=== PATIENT | male | born 1960 | race Caucasian/White ===

== ENCOUNTER → 2024-04-20 09:36 | Outpatient (REF) | payer BC, SELFPAY | LOC: MRI 09:36 | PROVIDERS: ATTENDING PHYSICIAN Psychiatry & Neurology Neurology; FAMILY PHYSICIAN Internal Medicine | DX: I63.9 Cerebral infarction, unspecified (principal) | CPT/HCPCS: 70551 ==

== ENCOUNTER 2024-10-03 22:56 | Inpatient (IN) | payer BC, SELFPAY ==
[2024-10-03 18:51] VITALS: BP 110/63
[2024-10-03 19:06] LABS: % Basophils 0.4 % (0-2); % Eosinophils 0.1 % (0-6); % Immature Granulocytes 0.3 % (0-0.5); % Monocytes 4.3 % (1.7-9.3); % Neutrophils 83.9 % (42.2-75.2); Absolute Basophils 0.1 10^3/uL (0-0.2); Absolute Lymphocytes 1.3 10^3/uL (1.2-3.4); Absolute Monocytes 0.5 10^3/uL (0.1-0.6); Absolute Neutrophils 9.6 10^3/uL (1.4-6.5); Hematocrit 45.9 % (39.0-52.0); Hemoglobin 15.4 g/dL (13.0-18.0); Mean Corp Hgb Conc. 33.6 g/dL (33.0-37.0); Mean Corpuscular Hgb 30.3 pg (27.0-31.0); Mean Corpuscular Volume 90.2 fL (80.0-94.0); Mean Platelet Volume 10.9 fL (7.4-10.4); Nucleated Red Blood Cells % 0 % (-); Platelet Count 231 10^3/uL (130-400); Red Blood Cell Count 5.09 10^6/uL (4.70-6.10); Red Cell Dist. Width 12.9 % (11.5-14.5); White Blood Cell Count 11.5 10^3/uL (4.8-10.8)
[2024-10-03 19:21] LABS: ALT (SGPT) 37 U/L (0-50); AST (SGOT) 28 U/L (17-59); Albumin 5.2 g/dl (3.5-5.0); Alkaline Phosphatase 60 U/L (38-126); Blood Urea Nitrogen 42 mg/dl (9-20); Calcium 9.9 mg/dl (8.4-10.2); Carbon Dioxide 26 mmol/L (22-30); Chloride 100 mmol/L (98-107); Glucose 191 mg/dl (70-99); Potassium 5.3 mmol/L (3.5-5.1); Sodium 139 mmol/L (135-145); Total Protein 7.6 g/dl (6.3-8.2); eGFR 47.82
--- NOTE | 2024-10-03 20:59 | ED.GENMED ---
History of Present Illness
General
Chief Complaint: Change in Mental Status
Source: patient
Exam Limitations: none
Time Seen by Provider: 10/03/24 20:30
History of Present Illness
History of Present Illness:
63-year-old male over weeks has had some fatigue cognitive issues occasional vomiting. Getting worse. Saw the primary physician 2 days ago.
Past History
Past History
ED Past Medical History: CVA, NIDDM, Other (Gout) and Other (Kidney stones)
ED Past Surgical History: Orthopedic (Left hand surgery)
Social History
Tobacco: Non-smoker
Alcohol: Occasional
Personal:
Living: with family
Employment: Employed
Family History
Family History: Other (Noncontributory)
Review of Systems
Review of Systems
All Other Systems: Not applicable
Respiratory: Reports no symptoms
Cardiac: Reports no symptoms
ABD/GI: Reports no symptoms
Phy Exam
Physical Exam
Physical Exam:
GENERAL: Alert. No distress.
EYE: Orbits normal.
NECK: Supple, no significant adenopathy.
ENT: Pharynx without erythema
CARDIAC: Regular rate and rhythm without any obvious murmurs.
LUNGS: Clear breath sounds,normal
ABDOMEN: Soft, without focal tenderness or distention
NEUROLOGICAL: Alert and oriented x 1. Off on the year and the date., Speech normal. Cranial nerves II through XII intact. Nonfocal.
SKIN: Warm and dry, no rash or lesion, no discoloration, skin intact.
MUSCULOSKELETAL: No edema,no deformity.Good color
PSYCH: Normal and appropriate interaction.
Course
Orders/Labs/Results
Orders:
Orders
10/03/24 18:[address] [CT Head W/o Iv Contrast] Urgent
Comment:
Reason For Exam: forgetfull and vomitting
10/03/24 18:59
CMP [Comprehensive Metabolic Panel] Urgent
Complete Blood Count/With Diff Urgent
10/03/24 20:41
IV Insert/Care/Rem.- Treatment PRN
10/03/24 21:23
Urinalysis Reflex To Culture Urgent
Date Specimen was Collected: 10/03/24
Time Specimen was Collected: 21:17
Urine Microscopic Reflex Cult Urgent
10/03/24 22:25
Aspirin Chewable [Low Strength Aspirin] 81 mg PO NOW STA
10/03/24 22:33
Admit/Transfer Patient As Directed
Co-Sign Provider:
Level of Care: Inpatient admission
Assign to:: Telemetry
Physician / Group: Letty Reynoso
Diagnosis: CVA
Reason for Telemetry: CVA/TIA
Date to Stop Telemetry: 10/06/24
Time to Stop Telemetry: 11:00
Reason for Hospitalization: CVA
Expected length of stay greater than two midnights?: Yes
ELOS- Estimated Length of Stay in days: 3
I certify the patient meets the requirements for IP care: Yes
PRN Pain Medication Management As Directed
May give lesser potent ordered pain med per pt: Yes
preference::
Protocol:: Medication orders for pain may be administered in a
manner that supports deferring to patient preference
when the pt is:
- Requesting an ordered lesser potent pain medication.
Least to most potent pain medications are defined
as: acetaminophen < NSAID < tramadol < opioids
(morphine, oxycodone, hydromorphone).
- Requesting a lesser dose of the same medication IF
ORDERED.
- Requesting a less intrusive route of administration
if both routes are prescribed by the provider (PO <
IV).
10/03/24 22:34
Code Status As Directed
Resuscitation Status: Full Code
10/03/24 22:38
CR Chest - 2 Views Urgent
Comment: possible brain mets
Reason For Exam: nausea/vomiting; confusion
10/06/24 11:00
DC Protocol for Telemetry ONCE
Abnormal Lab Results
10/03/24 10/03/24
18:59 21:23
WBC 11.5 H 10^3/uL
(4.8-10.8)
MPV 10.9 H fL
(7.4-10.4)
Absolute Neuts (auto) 9.6 H 10^3/uL
(1.4-6.5)
Neutrophils % 83.9 H %
(42.2-75.2)
Lymphocytes % 11.0 L %
(20.5-51.1)
Potassium 5.3 H mmol/L
(3.5-5.1)
BUN 42 H mg/dl
(9-20)
Creatinine 1.6 H mg/dL
(0.7-1.3)
Glucose 191 H mg/dl
(70-99)
Albumin 5.2 H g/dl
(3.5-5.0)
Urine Ketones 1+ A
(Negative)
Urine Glucose 4+ A
(Negative)
Urine Albumin (Reflex) 1+ A
(Neg - Trace)
10/03/24 18:59
10/03/24 18:59
Vital Signs
Initial and Last Documented VS:
Initial Vital Signs
Pulse Resp BP Pulse Ox
83 18 110/63 96
10/03/24 18:51 10/03/24 18:51 10/03/24 18:51 10/03/24 18:51
Last Documented Vital Signs
Pulse Resp BP Pulse Ox
74 15 115/75 96
10/03/24 23:00 10/03/24 23:00 10/03/24 23:00 10/03/24 23:00
MDM/Problems Addressed
Differential Diagnosis Includes:
Patient and family describing more of an encephalopathy than any other issue. Not meningitic. Workup in progress. CT pending. Warrants inpatient management
*Radiology
Radiology exam reviewed: radiology read reviewed (New areas of decreased attenuation. May represent nonhemorrhagic infarcts malignancy or infections also an etiology. MRI brain recommended)
*Pulse Oximetry
Patient hypoxic: no
*Critical Care Note
Total Time (30-74mins, 75-104mins- exclusive of procedures): Not Applicable
Data Reviewed
Review of Other/Old Records Reveals: Labs, Records, Radiology Studies and Testing
ED Attending Note
-
Portions of this chart may have been created with voice recognition software.� Occasional wrong word or��sound alike� substitutions may have occurred due to the inherent limitations of voice recognition software.
Discharge Plan
Departure
Patient Disposition: Admit
Date of Disposition: 10/03/24
Time of Disposition: 21:52
Presentation/result/management discussed w/ accepting MD/DO: Hospitalist
Patient with high blood pressure during this ER visit?: Yes
Discharge Problem:
Change in mental status, Possible embolic Cva, Possible metastatic disease
Interventions
Interventions:
*Risk Screen - Suicide Last Done: 10/03/24 18:51
*General Assessment Last Done: 10/03/24 18:51
*Neglect/Abuse Screening Last Done: 10/03/24 20:04
*ED- Fall Risk Assessment Last Done: 10/03/24 18:51
*ED COVID-19 Vaccine History Last Done: 10/03/24 18:51
ED- Neurological Assessment Last Done: 10/03/24 23:03
ED Swallowing Screen Last Done: 10/03/24 20:04
[2024-10-03 21:15] VITALS: BP 131/84
[2024-10-03 21:17] VITALS: BMI 26.2
[2024-10-03 21:56] LABS: Urine Albumin 1+ (Neg - Trace); Urine Bilirubin Negative (Negative); Urine Character Clear (Clear); Urine Color Yellow; Urine Glucose 4+ (Negative); Urine Ketone 1+ (Negative); Urine Leukocyte Negative (Negative); Urine Nitrite Negative (Negative); Urine Occult Blood Negative (Negative); Urine Specific Gravity 1.015 (<1.030); Urine Urobilinogen Negative (Neg - 1+)
--- NOTE | 2024-10-03 21:59 | HPS.HSE ---
Family Physician
-
Family Physician:
Chief Complaint
-
fatigue, confusion
History of Present Illness
Mr. Esvin Cunha is a 63 yo man with hx NIDDM, CVA, Gout presents to the ER complaining of feeling fatigued and forgetful. He states that symptoms have been going on over the past few weeks. 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 He saw his outpatient doctor with plans for outpatient MRI. Symptoms were persistent and so he came to the ER today.
He reports intermittent times of feeling warm, no measured fevers. + vomiting multiple times a day, vomited after medications this morning. No chest pain. No abdominal pain. No cough/congestion. No LE swelling.
Medical History
Past Medical History
Past Medical History: Reports Other ( NIDDM, CVA, Gout )
Past Surgical History: Reports Orthopedic (left hand )
Social History
Tobacco: Non-smoker
Alcohol: None
Family History
Family History: Not pertinent
Allergies / Home Medications
Allergies reflects when Allergies were last updated in [facility].
Home Medications with original date entered in [facility]
Allergy/Medication List:
Allergies
Allergy/AdvReac Type Severity Reaction Status Date / Time
No Known Allergies Allergy Verified 03/24/23 08:35
Home Medications
gabapentin 100 mg capsule 100 mg PO QPM Neurological Condition 03/24/23
glimepiride 1 mg tablet 1 mg PO QPM Diabetes 03/24/23
rosuvastatin 20 mg tablet 20 mg PO QPM High Cholesterol 03/24/23
acetaminophen 500 mg tablet (Tylenol Extra Strength) 1,000 mg PO Q6H PRN mild pain 03/28/23
aspirin 81 mg tablet,delayed release 81 mg PO DAILY 30 days #30 tabs 03/31/23
blood sugar diagnostic (Accu-Chek Guide test strips) ##200 03/31/23
blood-glucose meter (Accu-Chek Guide Glucose Meter) #1 ea 03/31/23
lancets (Accu-Chek Softclix Lancets) ##200 03/31/23
apixaban 5 mg tablet (Eliquis) 5 mg PO BID 10/03/24
empagliflozin 10 mg tablet (Jardiance) 10 mg PO DAILY 10/03/24
lisinopril 5 mg tablet 5 mg PO DAILY 10/03/24
Review of Systems
-
History Source: Patient
A 12 point ROS was completed and negative except as noted: Yes
Physical Exam
Vital Signs
Vital Signs
Pulse Resp BP Pulse Ox
75 11 131/84 94
10/03/24 21:30 10/03/24 21:30 10/03/24 21:15 10/03/24 21:15
Physical Exam
General: No Apparent Distress
HEENT: PERRLA
Respiratory: Clear; No Wheezes
Cardiac: S1/S2 and Regular Rhythm
GI: Soft and Non Tender
Skin: Warm and Dry; No Rash
Neuro: Other (RUEL, EOMI, no pronator drift, 5/5 strength upper and lower extremities; answers questions slowly and correctly)
Psych: Calm
Laboratory Results
-
10/03/24 18:59
10/03/24 18:59
Laboratory Results
Total Bilirubin 1.0 mg/dl (0.2-1.3) 10/03/24 18:59
AST 28 U/L (17-59) 10/03/24 18:59
ALT 37 U/L (0-50) 10/03/24 18:59
Alkaline Phosphatase 60 U/L (38-126) 10/03/24 18:59
Data Reviewed
-
Diagnostic Radiology: Report Reviewed by me
Lab Data: Labs Reviewed by me
Impression/Plan
-
Mr. Esvin Cunha is a 63 yo man with hx NIDDM, CVA, Gout, Atrial Fibrillation on Eliquis, presents to the ER complaining of feeling fatigued and forgetful found to have abnormal CT showing evolving infarcts versus malignancy versus infection.
Triage VS: P 83, RR 18, BP 110/63, SpO2 96%
LABS: WBC 11.5, Hg 15.4, PLT 231, Na 139, K+ 5.3, CO2 26, BUN 42, Cr 1.6, Glucose 191, liver enzymes WNL
CT Head
IMPRESSION:
Areas of old infarction again seen particularly in the left occipital lobe and right cerebellum.
New large focus of slight decreased attenuation in the deep white matter of the inferior left frontal lobe as well as new area anteriorly in the region of the genu of the corpus callosum and possible smaller focus in the more superior left frontal
lobe. Although all of these foci may represent EVOLVING NONHEMORRHAGIC INFARCTS, other etiologies such as MALIGNANCY and/or INFECTION (particularly the left inferior frontal lobe deep white matter location) are possible. Recommend MRI of Brain
without and with contrast for more complete evaluation.
Altered Mental Status/Forgetfulness
Abnormal CT showing areas that may represent evolving nonhemorrhagic infarct versus malignancy versus infection
Hx CVA
-admit to telemetry
-MRI with and without contrast tomorrow AM
-neuro checks
-CREATIVE LEAD aspirin 81mg daily/statin
-hold CREATIVE LEAD Eliquis
-consult Neurology
-confirmed with Neurology and Neurosurgery OK for admission here
Atrial Fibrillation
-hold Eliquis
Essential HTN
-CREATIVE LEAD Lisinopril
NIDDM
-hold CREATIVE LEAD Glimepiride
-ISS
-CREATIVE LEAD Jardiance
DVT PPx: SCD
FULL CODE
76 minutes spent on patient care
[2024-10-03 22:00] VITALS: BP 129/66
[2024-10-03 22:15] LABS: Urine Mucus Few; Urine Red Blood Cell None Seen /HPF (0-2)
[2024-10-03 23:00] VITALS: BP 115/75
[2024-10-03] MEDS: LOW STRENGTH ASPIRIN 81 MG PO (23:02)
[2024-10-04] VITALS (8 sets, daily range): BP systolic 88–137; BP diastolic 64–77; PULSE 71
[2024-10-04 06:22] LABS: % Basophils 0.8 % (0-2); % Eosinophils 1.7 % (0-6); % Immature Granulocytes 0.3 % (0-0.5); % Lymphocytes 30.7 % (20.5-51.1); % Monocytes 9.8 % (1.7-9.3); % Neutrophils 56.7 % (42.2-75.2); Absolute Basophils 0.1 10^3/uL (0-0.2); Absolute Eosinophils 0.1 10^3/uL (0-0.7); Absolute Lymphocytes 2.2 10^3/uL (1.2-3.4); Absolute Monocytes 0.7 10^3/uL (0.1-0.6); Absolute Neutrophils 4.1 10^3/uL (1.4-6.5); Hematocrit 42.8 % (39.0-52.0); Hemoglobin 14.4 g/dL (13.0-18.0); Mean Corp Hgb Conc. 33.6 g/dL (33.0-37.0); Mean Corpuscular Hgb 30.4 pg (27.0-31.0); Mean Corpuscular Volume 90.3 fL (80.0-94.0); Mean Platelet Volume 11.3 fL (7.4-10.4); Nucleated Red Blood Cells % 0 % (-); Platelet Count 213 10^3/uL (130-400); Red Blood Cell Count 4.74 10^6/uL (4.70-6.10); Red Cell Dist. Width 12.9 % (11.5-14.5); White Blood Cell Count 7.2 10^3/uL (4.8-10.8)
[2024-10-04 07:06] LABS: Blood Urea Nitrogen 40 mg/dl (9-20); Calcium 9.7 mg/dl (8.4-10.2); Carbon Dioxide 25 mmol/L (22-30); Chloride 105 mmol/L (98-107); Estimated Creatinine Clearance 56 ml/min; Glucose 53 mg/dl (70-99); HDL Cholesterol 46 mg/dl; LDL Cholesterol, Calculated 56 mg/dl; Sodium 141 mmol/L (135-145); Total Cholesterol 119 mg/dl (50-199); Triglyceride 86 mg/dl (10-149); Very Low Density Lipoprotein 17 mg/dl (0-30); eGFR > 60.00
[2024-10-04 07:10] LABS: Glucose - Point of Care 67 mg/dl (70-99)
[2024-10-04 07:30] LABS: Glucose - Point of Care 65 mg/dl (70-99)
[2024-10-04 07:53] LABS: Glucose - Point of Care 75 mg/dl (70-99)
[2024-10-04] MEDS: ASPIR LOW (ENTERIC COATED) 81 MG PO (09:42)
[2024-10-04] MEDS: ZESTRIL 5 MG PO (09:42)
--- NOTE | 2024-10-04 10:52 | PTOTSP ---
Speech Therapy Evaluation:
Swallow:
Pt presents with functional oropharyngeal swallow at bedside with no overt s/sx of aspiration across trials. Per chart, vital signs stable, WBC WNL, pt passed 3oz swallow screen, and CXR revealed 'unremarkable chest.'
Cognition/Language:
Given pt presented to with confusion/cognitive issues, the Saad Cognitive Assessment (MOCA) version 7.1 was administered. Pt earned an overall score of 18/30, indicative of neurocognitive impairment per parameters of this assessment (normal >
26). Pt demonstrated deficits in visuospatial/executive functioning (clock drawing), language (verbal fluency), delayed recall, and orientation.
Regarding language, pt with previous ST evaluation in February of 2023 with findings of mild expressive aphasia characterized by anomia, slow formulation, reduced language content in connected speech, and difficulty with confrontation naming. Per
pt report and chart review, pt never followed with ST following d/c. During informal observation, pt continues with slow processing and formulation, however demonstrated no deficits in word finding or confrontational naming (assessed on MOCA).
Recommend:
1. Continue IDDSI Level 7 (regular solids) and thin liquids
2. Medications as tolerated
3. General aspiration precautions
4. [employer] to follow for cognition, no skilled SOL[employer] services warranted for swallowing.
--- NOTE | 2024-10-04 10:55 | CM ---
Addendum entered by Danielle Sinha 10/04/24 12:39:
Plan for transfer to [facility] for neurosurgery/Dr Burgos
Original Note:
CM met with pt bedside
Pt resides with his spouse and adult dtr in a ranc[place]
6 steps down into front door, 6 steps up through back door
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
Indep with ADLs, drives+, denies use of DMEs
Hx with [facility]
PCP- Kurt Fuchs
Rx- [facility]
PT/OT/ST evals pending
Discharge Disposition- home, watch for [facility]N needs
--- NOTE | 2024-10-04 11:37 | CON.NEURO ---
Neuro Assessment/Plan
Assessment
brain tumor, rapidly growing, new in 6 months
brain MRI from this morning reviewed with patient, showing left frontal mass with edema bifrontally, as well as imaging from 6 months ago which did not show this
ddx including GBM, [employer] lymphoma, mets
Plan
EEG
neurosurgery consult
Consultation
Order
Date of Consultation: 10/04/24
Requesting Provider: Tristin Hernandez
Reason for Consult: AMS
Subjective/Objective
Subjective Data
Date of Service: October 04, 2024
From H&P
Mr. Esvin Cunha is a 63 yo man with hx NIDDM, CVA, Gout presents to the ER complaining of feeling fatigued and forgetful. He states that symptoms have been going on over the past few weeks. 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 He saw his outpatient doctor with plans for outpatient MRI. Symptoms were persistent and so he came to the ER today.
He reports intermittent times of feeling warm, no measured fevers. + vomiting multiple times a day, vomited after medications this morning. No chest pain. No abdominal pain. No cough/congestion. No LE swelling.
a little numbness on right scalp. No weakness, no seizures/LOC
Objective Data
Vital Signs
Temp Pulse Resp BP Pulse Ox
37.0 C 72 16 127/65 98
10/04/24 09:39 10/04/24 09:39 10/04/24 09:39 10/04/24 09:39 10/04/24 09:39
Lab Results
10/04/24 05:31
10/04/24 05:31
Sodium 141 mmol/L (135-145) 10/04/24 05:31
Potassium 5.0 mmol/L (3.5-5.1) 10/04/24 05:31
BUN 40 mg/dl (9-20) H 10/04/24 05:31
Glucose 53 mg/dl (70-99) L* 10/04/24 05:31
Calcium 9.7 mg/dl (8.4-10.2) 10/04/24 05:31
LDL Cholesterol, Calc 56 mg/dl 10/04/24 05:31
Patient Allergies
No Known Allergies Allergy (Verified 03/24/23 08:35)
Physical Exam
-
AAOx3, speech clear, language intact
VFF, EOMI, face symmetric
full strength b/l UE/LE,
sensation intact to touch
DTR 1+ bilat
Medications
-
Active Medications
Generic Name Dose Route Start Last Admin
Trade Name Freq PRN Reason Stop Dose Admin
Acetaminophen 1,000 mg 10/04/24 00:13
Acetaminophen 500 Mg Tablet PO 11/01/24 00:12
Q6H PRN
mild pain
Aspirin 81 mg 10/04/24 08:00 10/04/24 09:42
Aspirin 81 Mg (Enteric Coated) Tablet PO 11/01/24 07:59 81 mg
DAILY ALEXANDRA Administration
Dapagliflozin 10 mg 10/04/24 08:00 10/04/24 09:42
Dapagliflozin (Farxiga) 10 Mg Tablet PO 11/01/24 07:59 Not Given
DAILY ALEXANDRA
Dextrose 12.5 grams 10/04/24 00:13
Dextrose 50% (0.5 Grams/Ml) 50 Ml Syringe IV 11/01/24 00:12
[id number] PRN
hypoglycemia
Protocol
Gabapentin 100 mg 10/04/24 18:00
Gabapentin 100 Mg Capsule PO 11/01/24 17:59
QPM ALEXANDRA
Glucagon 1 mg 10/04/24 00:13
Glucagon 1 Mg Vial IM 11/01/24 00:12
PRN PRN
hypoglycemia
Protocol
Insulin Aspart 0 units 10/04/24 07:30 10/04/24 07:37
Insulin Aspart Low Resistance 300 Units/3 Ml Pen.Injctr SC 11/01/24 07:29 Not Given
AC ALEXANDRA
Protocol
Lisinopril 5 mg 10/04/24 08:00 10/04/24 09:42
Lisinopril 5 Mg Tablet PO 11/01/24 07:59 5 mg
DAILY ALEXANDRA Administration
Rosuvastatin Calcium 20 mg 10/04/24 00:13 10/04/24 03:24
Rosuvastatin (Crestor) 20 Mg Tablet PO 11/01/24 00:12 Not Given
QPM ALEXANDRA
Sodium Chloride 0 flush 10/04/24 02:00
Sodium Chloride 0.9% (Flush) Syringe IV 11/01/24 01:59
PER PROTOCOL ALEXANDRA
Home Medications
�Medication �Instructions �Recorded
gabapentin 100 mg capsule 100 mg PO HS Neurological Condition 03/24/23
glimepiride 1 mg tablet 2 mg PO QPM Diabetes 03/24/23
rosuvastatin 20 mg tablet 20 mg PO QPM High Cholesterol 03/24/23
aspirin 81 mg tablet,delayed 81 mg PO DAILY 30 days #30 tabs 03/31/23
release
apixaban 5 mg tablet (Eliquis) 5 mg PO BID 10/03/24
empagliflozin 25 mg tablet 25 mg PO DAILY 10/04/24
(Jardiance)
[2024-10-04 12:03] LABS: Glucose - Point of Care 179 mg/dl (70-99)
--- NOTE | 2024-10-04 12:29 | W.PN.UPDATE ---
Update Note
Progress Note Update
Asked to evaluate patient
I reviewed the chart and d/w Dr's David and Franny.
Patient requires transfer to [place] for biopsy. Will arrange for transfer
--- NOTE | 2024-10-04 12:48 | W.DCSUMMARY ---
Discharge Summary
Discharge Data
Date of Admission: 10/03/24
Date of Discharge: 10/04/24
-
Pending Results: No
Hospital Course
63 male history of [id number] diabetes melitis, CVA, gout presenting with feelings of fatigue forgetfulness that has been progressively getting worse over the last few weeks. CBC unremarkable. BMP noted hyperkalemia however improved.
Bout of hypoglycemia however started on a diabetic diet with resolution. CT brain demonstrated new large focus concerning for evolving nonhemorrhagic infarct, that could be malignancy and/or infection. MRI brain that demonstrated involving both
frontal lobes greater involvement of the left when compared to the right and also involving the corpus callosum these findings only certainly represent neoplasia with a main differential consideration of glioblastoma multiform a, HRIS ADMINISTRATOR lymphoma, and
metastatic disease. Stable foci of old infarct involving the left occipital lobe, left thalamus, right cerebellum
Seen and examined on day that he was transferred to [facility]
I did ask him if he wanted me to call his family to give them a update he responded no he would call them from [facility] in the evening
No new complaints or overnight events
No new distress, sitting in bedside chair
CTA bilateral
Regular rate rhythm
Soft nontender nondistended
AAO x 3
More than 30 minutes spent in discharge including
Final examination of the patient
Summarizing hospital stay
Instructions for continuing care to all relevant caregivers
Preparation of discharge records, prescriptions, and referral forms
Total time spent (in minutes): 33mins
Discharge Plan
-
Patient Disposition: Acute Care Hospital
Discharge Orders:
Discharge Patient (As Directed); Ordered 10/04/24
Ordered By: Tristin Hernandez
Discharge Date and Time
Print Language: MALAYSIAN
--- NOTE | 2024-10-04 14:45 | PTCARENOTE ---
Patient and patient updated on plan of care to transfer to [facility] for neurosurgery care. Patient NIH 1-4 this shift, see flowsheets for details. Pt is voiding in bathroom, ambulating in room without difficulty, eating regular diet and thin liquids
without difficulty, denies pain/nausea. MRI of brain obtained. See MAR/flowsheets for further care details.
--- NOTE | 2024-10-04 16:04 | PTCARENOTE ---
report given to sidney nair at [place]
== END 2024-10-04 17:44 | disposition short-term general hospital (02) | DRG 64 ==
LOC: ED 22:56
PROVIDERS: Emergency Medicine; ADMITTING PHYSICIAN Student in an Organized Health Care Education/Training Program; ATTENDING PHYSICIAN Hospitalist; EMERGENCY PHYSICIAN Emergency Medicine; FAMILY PHYSICIAN Internal Medicine; OTHER PHYSICIAN Psychiatry & Neurology Clinical Neurophysiology
DX: I63.89 Other cerebral infarction (principal); G04.90 Encephalitis and encephalomyelitis, unspecified; E11.649 Type 2 diabetes mellitus with hypoglycemia without coma; E87.5 Hyperkalemia; D49.6 Neoplasm of unspecified behavior of brain; I10 Essential (primary) hypertension; I48.91 Unspecified atrial fibrillation; Z86.73 Personal history of transient ischemic attack (TIA), and cerebral infarction without residual deficits; Z79.82 Long term (current) use of aspirin; Z79.01 Long term (current) use of anticoagulants; M10.9 Gout, unspecified
CPT/HCPCS: 70450; 70553; 71046; 80048; 80053; 80061; 81003; 81015; 82962; 83036; 85025; 92523; 92610; 99285; A9575

== ENCOUNTER 2024-11-11 20:31 | Inpatient (IN) | payer BC, SELFPAY ==
[2024-11-11] VITALS (10 sets, daily range): BP systolic 98–142; BP diastolic 50–102; BMI 23.2
[2024-11-11 14:13] LABS: % Basophils 0.3 % (0-2); % Eosinophils 0.1 % (0-6); % Immature Granulocytes 0.9 % (0-0.5); % Lymphocytes 8.3 % (20.5-51.1); % Monocytes 8.7 % (1.7-9.3); % Neutrophils 81.7 % (42.2-75.2); Absolute Immature Granulocytes 0.1 10^3/uL (0-0.05); Absolute Monocytes 1.1 10^3/uL (0.1-0.6); Absolute Neutrophils 9.9 10^3/uL (1.4-6.5); Hematocrit 40.3 % (39.0-52.0); Hemoglobin 13.6 g/dL (13.0-18.0); Mean Corp Hgb Conc. 33.7 g/dL (33.0-37.0); Mean Corpuscular Hgb 30.1 pg (27.0-31.0); Mean Corpuscular Volume 89.2 fL (80.0-94.0); Mean Platelet Volume 10.3 fL (7.4-10.4); Nucleated Red Blood Cells % 0 % (-); Platelet Count 276 10^3/uL (130-400); Red Blood Cell Count 4.52 10^6/uL (4.70-6.10); Red Cell Dist. Width 13.2 % (11.5-14.5); White Blood Cell Count 12.1 10^3/uL (4.8-10.8)
[2024-11-11 14:32] LABS: ALT (SGPT) 66 U/L (0-50); AST (SGOT) 22 U/L (17-59); Alkaline Phosphatase 53 U/L (38-126); Blood Urea Nitrogen 37 mg/dl (9-20); Calcium 9.3 mg/dl (8.4-10.2); Carbon Dioxide 24 mmol/L (22-30); Chloride 99 mmol/L (98-107); Glucose 384 mg/dl (70-99); Potassium 4.8 mmol/L (3.5-5.1); Sodium 134 mmol/L (135-145); Total Bilirubin 0.7 mg/dl (0.2-1.3); Total Protein 6.8 g/dl (6.3-8.2); eGFR > 60.00
[2024-11-11] MEDS: NSS 500 IV (18:25)
[2024-11-11 18:49] LABS: Lactic Acid 1.4 mmol/L (0.7-2.0)
[2024-11-11 18:55] LABS: COVID-19 Antigen Negative (Negative)
[2024-11-11 19:02] LABS: Troponin I < 0.012 ng/ml
--- NOTE | 2024-11-11 19:29 | ED.GENMED ---
History of Present Illness
General
Chief Complaint: Change in Mental Status
Source: family
Exam Limitations: clinical condition and non verbal-adult
Time Seen by Provider: 11/11/24 17:43
History of Present Illness
History of Present Illness:
see MDM
Past History
Past History
ED Past Medical History: CVA, NIDDM, Other (Gout) and Other (Kidney stones)
ED Past Surgical History: Orthopedic (Left hand surgery)
Social History
Tobacco: Non-smoker
Alcohol: Occasional
Personal:
Living: with family
Employment: Employed
Family History
Family History: Other (Noncontributory)
Phy Exam
Physical Exam
Physical Exam:
GENERAL: awake, responding to commands; expressive aphasia
HEAD: craniotomy incision site normal
EYE: pupils equal and reactive, no nystagmus, no photophobia
NECK: Supple,full rom, nontender
ENT: o/p clr, mmm.
CARDIAC: Regular rate and rhythm . no edema
LUNGS: Clear breath sounds bilaterally, no acute respiratory distress, no wheezes/rales/rhonchi
ABDOMEN: Soft, without focal tenderness, no r/g, no cvat
NEUROLOGICAL: awake; follows commands; expressive aphasia; some cn intact, no facial asymmetry, 5/5 strength in UE/LE, sensation intact, romberg neg, ambulates without assistance, neg pronator drift
SKIN: Warm and dry, skin intact.
MUSCULOSKELETAL: No edema, well perfused.
PSYCH: Normal and appropriate interaction.
Course
Orders/Labs/Results
Orders:
Orders
11/11/24 14:08
CMP [Comprehensive Metabolic Panel] Urgent
Complete Blood Count/With Diff Urgent
11/11/24 Dinner
2000 calorie (17 carb) Diabetic
At Your Request: Full Participation
Does patient need a safe tray?: No
11/11/24 18:03
CT Head W/o Iv Contrast Urgent
Comment:
Reason For Exam: shakiness/seizure?
11/11/24 18:04
Electrocardiogram (*1) Urgent
Reason for Study: Fatigue / Weakness
EKG- Treatment ONCE
11/11/24 18:05
0.9% Sodium Chloride 500 ml [Nss] 500 ml IV BOLUS
11/11/24 18:24
COVID-19 Antigen Urgent
Source: Nasal Swab
Lactic Acid Urgent
Troponin I Urgent
Influenza A+B Rapid Molecular Urgent
MAMIE Source: Nasal Swab
Specimen Description:
11/11/24 19:07
CR Chest Portable - 1 View Urgent
Comment:
Reason For Exam: shaking
Reason Study Needs to be Portable: Patient Unstable
11/11/24 19:31
CT Abd/pel Without Iv Or Oral Urgent
Comment:
Reason For Exam: vomiting,
11/11/24 19:32
Bladder Scan- Treatment ONCE
11/11/24 19:39
Urinalysis Reflex To Culture Urgent
Date Specimen was Collected: 11/11/24
Time Specimen was Collected: 19:22
Urine Microscopic Reflex Cult Urgent
Blood Culture Q30M
MAMIE Source: Blood/Venous
Specimen Description:
Blood Culture Q30M
MAMIE Source: Blood/Venous
Specimen Description:
Urine Culture Urgent
MAMIE Source: U
Specimen Description:
Date Specimen was Collected: 11/11/24
Time Specimen was Collected: 19:22
11/11/24 19:50
CefTRIAXone [Rocephin] 2,000 mg IV NOW STA
11/11/24 20:13
Admit/Transfer Patient As Directed
Co-Sign Provider:
Level of Care: Inpatient admission
Assign to:: Medical/Surgical
Physician / Group: floyd
Diagnosis: uti
Reason for Hospitalization: uti
Expected length of stay greater than two midnights?: Yes
ELOS- Estimated Length of Stay in days: 2
I certify the patient meets the requirements for IP care: Yes
Code Status As Directed
Resuscitation Status: Full Code
PRN Pain Medication Management As Directed
May give lesser potent ordered pain med per pt: Yes
preference::
Protocol:: Medication orders for pain may be administered in a
manner that supports deferring to patient preference
when the pt is:
- Requesting an ordered lesser potent pain medication.
Least to most potent pain medications are defined
as: acetaminophen < NSAID < tramadol < opioids
(morphine, oxycodone, hydromorphone).
- Requesting a lesser dose of the same medication IF
ORDERED.
- Requesting a less intrusive route of administration
if both routes are prescribed by the provider (PO <
IV).
11/11/24 20:19
Sterile Water [Sterile Water For Injection] 20 ml .ROUTE .STK-MED
11/11/24 21:22
0.9% Sodium Chloride 1000 ml [Nss] 1,000 ml IV 100 mls/hr
Acetaminophen [Tylenol] 650 mg PO Q4HPRN PRN
Bisacodyl [Dulcolax] 10 mg RECTAL DAILYPRN PRN
Dextrose 50%-Water [Dextrose 50% Syringe] 12.5 grams IV [id number] PRN
Glucagon [GlucaGen] 1 mg IM PRN PRN
11/11/24 21:22
Activity As Directed
Activity Level: As Tolerated
Bedside Glucose Monitoring As Directed
Frequency: AC&HS
Additional Instructions:: Change to q6h if pt on TPN, tube feeding or not eating
Pneumatic Compression Sleeves As Directed
Type: Knee high
Vital Signs As Directed
Frequency: Per unit guidelines
DX Deep Vein Thrombosis Video Routine
11/11/24 22:00
Gabapentin [Neurontin] 100 mg PO HS
Melatonin 5 mg PO HS
Zinc Oxide 20% [Zinc Oxide Ointment] See Dose Instructions TOPICAL TID
11/12/24 06:12
Comprehensive Metabolic Panel IN AM
11/12/24 06:13
Complete Blood Count/With Diff IN AM
Glycohemoglobin (HgbA1c) IN AM
11/12/24 07:30
Insulin Aspart Corrective Low [Novolog Flexpen-Low Resistance] See Protocol SC AC
11/12/24 08:00
Apixaban [Eliquis] 5 mg PO BID
Clotrimazole [Lotrimin 1% Cream] See Dose Instructions TOPICAL BID
Dexamethasone [Decadron] 2 mg PO BID
Docusate Sodium [Colace] 100 mg PO BID
Levetiracetam [Keppra] 1,000 mg PO BID
Metoprolol Xl [Toprol Xl] 12.5 mg PO DAILY
Midodrine [ProAmatine] 10 mg PO TID @ 0800,1200,1700
Pantoprazole [Protonix] 40 mg PO DAILY
Sennosides [Senokot] 17.2 mg PO DAILY
11/12/24 18:00
Rosuvastatin Calcium [Crestor] 20 mg PO QPM
11/12/24 20:00
CefTRIAXone [Rocephin] 1,000 mg IV Q24H
Abnormal Lab Results
11/11/24 11/11/24
14:08 19:39
WBC 12.1 H 10^3/uL
(4.8-10.8)
RBC 4.52 L 10^6/uL
(4.70-6.10)
Abs Immat Gran (auto) 0.1 H 10^3/uL
(0-0.05)
Absolute Neuts (auto) 9.9 H 10^3/uL
(1.4-6.5)
Absolute Lymphs (auto) 1.0 L 10^3/uL
(1.2-3.4)
Absolute Monos (auto) 1.1 H 10^3/uL
(0.1-0.6)
Immature Gran % 0.9 H %
(0-0.5)
Neutrophils % 81.7 H %
(42.2-75.2)
Lymphocytes % 8.3 L %
(20.5-51.1)
Sodium 134 L mmol/L
(135-145)
BUN 37 H mg/dl
(9-20)
Glucose 384 H mg/dl
(70-99)
ALT 66 H U/L
(0-50)
Ur Occult Blood Reflex 4+ A
(Negative)
Leukocyte Esterase Rfl 3+ A
(Negative)
Urine WBC (Reflex) >100 A /HPF
(0-5)
Urine Glucose 2+ A
(Negative)
Urine Albumin (Reflex) 3+ A
(Neg - Trace)
11/11/24 14:08
11/11/24 14:08
Vital Signs
Initial and Last Documented VS:
Initial Vital Signs
Temp Pulse Resp BP Pulse Ox
36.6 C 69 18 109/66 97
11/11/24 13:56 11/11/24 13:56 11/11/24 13:56 11/11/24 13:56 11/11/24 13:56
Last Documented Vital Signs
Temp Pulse Resp BP Pulse Ox
36.6 C 64 18 143/80 94
11/16/24 23:35 11/16/24 23:35 11/16/24 23:35 11/16/24 23:35 11/16/24 23:35
MDM/Problems Addressed
Differential Diagnosis Includes:
sepsis, seizure/status, uti
MDM/Problems Addressed:
64 y/o M from [facility]
had craniotomy and resection of glioblastoma 10/08 dr. vazquez at [facility]
went to [facility]
has deficits of speech, L sided weakness
on decadron
apparently yesterday starting having 'shaking' all over and frida he was cold; never spiked temp but vomited once and started having hiccups after; aparently was supposed to be discharged today from rehab;
he does have some generalized mild shakiness; it looks worse on the right because of his L sided weakness; i can't tell if it's rigors
he has a rectal temp 100.1;
mild wbc 12 but on decadron
ct shows stable post operative changes
he is at his baseline mental status, awake, follows commands, R facial droop, L weakness and some aphasia
lactate normal
ua pending
cxr clear
the only real abnormal lab is his sugar which is 380 since he came off the metformin yesterday becuase they thought that caused the vomiting
my best guess is that he has some viral syndrome and the shakiness may be from a developing infection; but i suppose seizure is possible; he is on keppra daily
will culture and watch overnight to be sure not bacteremic
*Critical Care Note
Total Time (30-74mins, 75-104mins- exclusive of procedures): Not Applicable
ED Attending Note
-
Portions of this chart may have been created with voice recognition software.� Occasional wrong word or��sound alike� substitutions may have occurred due to the inherent limitations of voice recognition software.
Discharge Plan
Departure
Patient Disposition: Admit
Date of Disposition: 11/11/24
Time of Disposition: 19:30
Admit to: Telemetry
Presentation/result/management discussed w/ accepting MD/DO: Hospitalist
Condition: Fair
Covid-19: Negative COVID-19
Discharge Problem:
Chills, UTI (urinary tract infection)
Interventions
Interventions:
*Risk Screen - Suicide Last Done: 11/11/24 14:02
*General Assessment Last Done: 11/11/24 13:56
*Neglect/Abuse Screening Last Done: 11/11/24 13:56
*ED- Fall Risk Assessment Last Done: 11/11/24 19:59
*ED COVID-19 Vaccine History Last Done: 11/11/24 23:40
*Nursing Disposition Last Done: 11/11/24 21:27
ED- Neurological Assessment Last Done: 11/11/24 16:00
Discharge Date and Time
Discharge Date/Time: 11/11/24 21:27
[2024-11-11 19:45] LABS: Urine Albumin 3+ (Neg - Trace); Urine Bilirubin Negative (Negative); Urine Character Cloudy (Clear); Urine Glucose 2+ (Negative); Urine Ketone Negative (Negative); Urine Leukocyte 3+ (Negative); Urine Nitrite Negative (Negative); Urine Occult Blood 4+ (Negative); Urine Urobilinogen Negative (Neg - 1+)
[2024-11-11 19:48] LABS: Urine Color Straw
[2024-11-11 19:59] LABS: Urine Squamous Cell 0-2 /LPF (Few)
[2024-11-11 20:00] LABS: Urine White Cell >100 /HPF (0-5)
--- NOTE | 2024-11-11 20:17 | HPS.HSE ---
Family Physician
-
Family Physician: Kurt Fuchs
Chief Complaint
-
shakiness
History of Present Illness
64-year-old male past medical history of glioblastoma status post craniotomy on 10/08, diabetes, CVA, gout, atrial fibrillation on Eliquis, hypertension, orthostatic hypotension, hyperlipidemia, anemia, CKD 3, urinary incontinence, presenting with
shakiness and hiccups since yesterday. Patient had 1 episode of vomiting yesterday. Patient has tremor worse on the right side and fever of 100.1.
Patient unable to provide any history at this time.
Medical History
Past Medical History
Past Medical History: Reports Other (glioblastoma status post craniotomy on 10/08, diabetes, CVA, gout, atrial fibrillation on Eliquis, hypertension, orthostatic hypotension, hyperlipidemia, anemia, CKD 3, urinary incontinence)
Past Surgical History: Reports None
Social History
Tobacco: Non-smoker
Alcohol: None
Drug: None
Family History
Family History: Not pertinent
Allergies / Home Medications
Allergies reflects when Allergies were last updated in [employer].
Home Medications with original date entered in [employer]
Allergy/Medication List:
Allergies
Allergy/AdvReac Type Severity Reaction Status Date / Time
No Known Allergies Allergy Verified 03/24/23 08:35
Home Medications
acetaminophen 325 mg tablet 650 mg PO Q6HPRN PRN mild Pain 11/11/24
apixaban 5 mg tablet (Eliquis) 5 mg PO BID Arrhythmia 30 days #60 tabs 11/11/24
bisacodyl 10 mg rectal suppository (Dulcolax (bisacodyl)) 10 mg [place] DAILYPRN PRN constipation 11/11/24
clotrimazole 1 % topical cream (Athlete's Foot (clotrimazole)) 1 applic topical BID skin rash, groins 30 days #50 grams 11/11/24
dexamethasone 2 mg tablet 2 mg PO BID brain tumor 30 days #60 tabs 11/11/24
docusate sodium 100 mg capsule 100 mg PO BID Constipation 30 days #60 caps 11/11/24
gabapentin 100 mg capsule 100 mg PO HS 30 days #30 caps 11/11/24
insulin glargine 100 unit/mL (3 mL) subcutaneous pen (Lantus Solostar U-100 Insulin) 14 unit SC HS 11/11/24
lansoprazole 30 mg capsule,delayed release 30 mg PO DAILY 11/11/24
levetiracetam 1,000 mg tablet 1,000 mg PO BID Seizure prophylaxis 30 days #60 tabs 11/11/24
melatonin 5 mg tablet 5 mg PO HS 11/11/24
metoprolol succinate 25 mg tablet,extended release 24 hr 12.5 mg (1/2 x 25 mg) PO DAILY Blood pressure 30 days #15 tabs 11/11/24
midodrine 5 mg tablet 10 mg PO TID Orthostasis 11/11/24
rosuvastatin 20 mg tablet 20 mg PO QPM Cholesterol 11/11/24
sennosides 8.6 mg tablet (senna) 17.5 mg PO DAILY 11/11/24
zinc oxide 20 % topical ointment 1 applic topical TID buttock 11/11/24
Review of Systems
-
History Source: Patient
A 12 point ROS was completed and negative except as noted: Yes
Constitutional: Reports No Symptoms
EENT: Reports No Symptoms
Respiratory: Reports No Symptoms
Cardiac: Reports No Symptoms
Abdomen/GI: Reports No Symptoms
: Reports No Symptoms
Musculoskeletal: Reports No Symptoms
Skin: Reports No Symptoms
Neurological: Reports No Symptoms
Endocrine: Reports No Symptoms
Hematologic/Lymphatic: Reports No Symptoms
Psych: Reports No Symptoms
Physical Exam
Vital Signs
Vital Signs
Temp Pulse Resp BP Pulse Ox
97.9 F 76 13 101/63 98
11/11/24 13:56 11/11/24 19:53 11/11/24 19:53 11/11/24 19:53 11/11/24 19:00
Physical Exam
General: Well Developed, Well Nourished and No Apparent Distress
HEENT: NormoCephalic, Moist mucous membranes and Atraumatic
Respiratory: Clear
Cardiac: S1/S2 and Regular Rhythm; No Murmur or Rub
GI: Soft, Non Tender, Non Distended and Normal Bowel Sounds; No Organomegaly
Rectal: Deferred by Provider
Musculoskeletal: No Clubbing, No Cyanosis and No Edema
Skin: No Rash
Neuro: Nonfocal/grossly intact
Laboratory Results
-
11/11/24 14:08
11/11/24 14:08
Laboratory Results
Lactic Acid 1.4 mmol/L (0.7-2.0) 11/11/24 18:24
Total Bilirubin 0.7 mg/dl (0.2-1.3) 11/11/24 14:08
AST 22 U/L (17-59) 11/11/24 14:08
ALT 66 U/L (0-50) H 11/11/24 14:08
Alkaline Phosphatase 53 U/L (38-126) 11/11/24 14:08
Troponin I < 0.012 ng/ml 11/11/24 18:24
Data Reviewed
-
Lab Data: Labs Reviewed by me
Old Records: Reviewed
Impression/Plan
-
IMPRESSION:
PLAN:
# Sepsis (fever, leukocytosis) secondary to UTI
-Patient following some commands but not speaking much and is tremulous, does not appear to be having a seizure
- Chest x-ray, CT abdomen pelvis pending
- Urinalysis shows greater than 100 white cells, +3 leukocyte esterase
- Blood cultures pending
-IV fluids
- Ceftriaxone
- Neurology was contacted who did not have any further recommendations
# Hyperglycemia secondary to infection/steroids
#Type 2 diabetes
- Continue Lantus 14 units
- Insulin sliding scale
Glioblastoma status post craniotomy on 10/08
- Continue Keppra for seizure prophylaxis
- Continue dexamethasone
History of CVA
Gout
- Continue gabapentin
Paroxysmal atrial fibrillation
- Continue metoprolol
- Continue Eliquis
Essential hypertension
Orthostatic hypotension
- Continue midodrine
Hyperlipidemia
- Continue statin
Chronic anemia
- Hemoglobin stable
CKD 3
- Renal function at baseline
History of urinary incontinence
Full code
DVT prophylaxis�SCDs
Diabetic diet
[2024-11-11] MEDS: ROCEPHIN 2000 MG IV (20:34)
[2024-11-11] MEDS: NSS 1000 IV (21:43)
[2024-11-11 21:50] LABS: Glucose - Point of Care 166 mg/dl (70-99)
[2024-11-11] MEDS: NEURONTIN 100 MG PO (22:20)
[2024-11-11] MEDS: MELATONIN 5 MG PO (22:20)
[2024-11-11] MEDS: LANTUS 0.14 UNITS SC (22:20)
[2024-11-11] MEDS: ZINC OXIDE OINTMENT 1 APPLIC TOPICAL (22:21)
[2024-11-12 07:01] LABS: % Basophils 0.5 % (0-2); % Immature Granulocytes 0.8 % (0-0.5); % Lymphocytes 8.2 % (20.5-51.1); % Monocytes 9.8 % (1.7-9.3); % Neutrophils 80.7 % (42.2-75.2); Absolute Basophils 0.1 10^3/uL (0-0.2); Absolute Immature Granulocytes 0.1 10^3/uL (0-0.05); Absolute Lymphocytes 0.9 10^3/uL (1.2-3.4); Absolute Monocytes 1.1 10^3/uL (0.1-0.6); Hematocrit 37.1 % (39.0-52.0); Hemoglobin 12.7 g/dL (13.0-18.0); Mean Corp Hgb Conc. 34.2 g/dL (33.0-37.0); Mean Corpuscular Hgb 30.5 pg (27.0-31.0); Mean Corpuscular Volume 89.2 fL (80.0-94.0); Mean Platelet Volume 10.7 fL (7.4-10.4); Nucleated Red Blood Cells % 0 % (-); Platelet Count 243 10^3/uL (130-400); Red Blood Cell Count 4.16 10^6/uL (4.70-6.10); Red Cell Dist. Width 13.2 % (11.5-14.5); White Blood Cell Count 11.2 10^3/uL (4.8-10.8)
[2024-11-12 07:31] LABS: ALT (SGPT) 57 U/L (0-50); AST (SGOT) 21 U/L (17-59); Albumin 3.6 g/dl (3.5-5.0); Alkaline Phosphatase 51 U/L (38-126); Blood Urea Nitrogen 36 mg/dl (9-20); Calcium 8.7 mg/dl (8.4-10.2); Carbon Dioxide 25 mmol/L (22-30); Chloride 106 mmol/L (98-107); Estimated Creatinine Clearance 63 ml/min; Glucose 122 mg/dl (70-99); Potassium 4.4 mmol/L (3.5-5.1); Sodium 138 mmol/L (135-145); Total Bilirubin 0.6 mg/dl (0.2-1.3); Total Protein 5.8 g/dl (6.3-8.2); eGFR > 60.00
[2024-11-12 07:47] LABS: Glucose - Point of Care 129 mg/dl (70-99)
[2024-11-12 07:55] VITALS: BP 102/58
[2024-11-12] MEDS: NOVOLOG FLEXPEN-LOW RESISTANCE SC ×2 (08:09→13:18)
[2024-11-12 08:47] LABS: Glycohemoglobin (HgbA1c) 7.1 % (4.0-5.6)
[2024-11-12] MEDS: NSS 1000 IV ×2 (08:52→18:00)
[2024-11-12] MEDS: ProAmatine 10 MG PO ×3 (08:52→17:57)
[2024-11-12] MEDS: KEPPRA 1000 MG PO ×2 (08:53→19:52)
[2024-11-12] MEDS: PROTONIX 40 MG PO (08:53)
[2024-11-12] MEDS: SENOKOT 17.2 MG PO (08:53)
[2024-11-12] MEDS: COLACE 100 MG PO ×2 (08:53→19:53)
[2024-11-12] MEDS: ELIQUIS 5 MG PO ×2 (08:53→19:53)
[2024-11-12] MEDS: DECADRON 2 MG PO ×2 (08:53→19:53)
[2024-11-12] MEDS: LOTRIMIN 1% CREAM 1 APPLIC TOPICAL ×2 (08:54→19:57)
[2024-11-12] MEDS: ZINC OXIDE OINTMENT 1 APPLIC TOPICAL ×3 (08:55→22:40)
[2024-11-12] MEDS: DESENEX/MITRAZOL/ZEASORB 1 APPLIC TOPICAL ×2 (08:55→19:58)
[2024-11-12] MEDS: TOPROL XL PO (08:58)
--- NOTE | 2024-11-12 11:34 | CM ---
Patient seen at bedside.
Dx: UTI, sepsis
PMH: glioblastoma post craniotomy 10/08, DM, CVA, gout
LM with Jennifer
IA not fully completed
Patient was at [facility]
tt from [facility] Arm[facility] B[facility]LLO she had set up Homecare services with [facility]
CM called & spoke with Silke [phone] who stated they do not use [facility] and to fax any information to them at [phone]
Silke stated they received information from [facility]
PCP: Kurt Fuchs
PHARMACY: [facility]
PLAN: [facility]
Fax #: [phone]
--- NOTE | 2024-11-12 11:48 | CON.ID ---
Consultation
-
Date/Time Consultation Requested: November 12, 2024 1116
Date/Time Consultation Performed: November 12, 2024 1150
Requesting Provider: Dr. Yudelka Pierre
Performing Provider: Dr. Bailee Ramirez
Reason for Consultation: Bacteremia
Chief Complaint / Past History
Chief Complaint
Shakiness
History of Present Illness
History obtained from medical records since patient has aphasia. He is a 64-year-old male with diabetes mellitus, history of CVA, recent diagnosis of high-grade glioblastoma status post left-sided craniotomy resection of tumor October 08, 2024 at [facility]
then transferred to [facility] October 29, 2024. Yesterday patient noted to have significant shaking tremor episodes. He was sent to the ER. Temperature 100.1. White count 14. Chest x-ray with basilar atelectasis. CT of the abdomen pelvis showed
severe bladder distention to the level of the umbilicus with right greater than left hydronephrosis. Diaz was placed in the ER. He is currently on ceftriaxone. Admission blood cultures positive.
Past History
Additional Past Medical History:
Recent diagnosis brain high-grade glioblastoma status post left-sided craniotomy, resection of tumor October 08, 2024 at [facility]
Expressive aphasia
Diabetes mellitus
CVA
CKD3
Afib on Eliquis
Orthostatic hypotension
HLD
Urine incontinence
Gout
Nephrolithiasis
Left hand surgery
Allergy History:
No Known Allergies Allergy (Verified 03/24/23 08:35)
Medications Reviewed: Yes
Current Antibiotics:
Ceftriaxone
Social History
Tobacco: Non-Smoker
Alcohol: None
Drug: None
Personal:
Family History
Family History: Not Pertinent
Review of Systems
Review of Systems
Unable to obtain due to expressive aphasia
Vital Signs
Temp Pulse Resp BP Pulse Ox
98.4 F 78 16 102/58 95
11/12/24 07:55 11/12/24 08:52 11/12/24 07:55 11/12/24 08:52 11/12/24 10:25
Physical Exam
Physical Exam
Constitutional: Acutely Ill
Cardiovascular: Regular Rate and S1/S2
Pulmonary: Clear
Gastrointestinal: Soft, Non Tender and Non Distended
Genito-Urinary: Diaz and Turbid Urine; Negative CVA Tenderness
Extremities: Negative Edema
Neurological: Other (Drowsy)
Lab / Diagnostic Study Results
11/12/24 06:13
11/12/24 06:12
Abs Immat Gran (auto) 0.1 10^3/uL (0-0.05) H 11/12/24 06:13
Absolute Neuts (auto) 9.0 10^3/uL (1.4-6.5) H 11/12/24 06:13
Absolute Lymphs (auto) 0.9 10^3/uL (1.2-3.4) L 11/12/24 06:13
Absolute Monos (auto) 1.1 10^3/uL (0.1-0.6) H 11/12/24 06:13
Absolute Basos (auto) 0.1 10^3/uL (0-0.2) 11/12/24 06:13
Immature Gran % 0.8 % (0-0.5) H 11/12/24 06:13
Neutrophils % 80.7 % (42.2-75.2) H 11/12/24 06:13
Lymphocytes % 8.2 % (20.5-51.1) L 11/12/24 06:13
Monocytes % 9.8 % (1.7-9.3) H 11/12/24 06:13
Eosinophils % 0.0 % (0-6) 11/12/24 06:13
Basophils % 0.5 % (0-2) 11/12/24 06:13
Lactic Acid 1.4 mmol/L (0.7-2.0) 11/11/24 18:24
Ur Squamous Epith Cells 0-2 /LPF (Few) 11/11/24 19:39
Microbiology Results
Micro:
11/11/24 19:39 Blood Culture - Preliminary
Blood/Venous Positive culture in progress
Gram Stain - Preliminary
11/11/24 19:39 Blood Culture - Pending
Blood/Venous
11/11/24 19:39 Urine Culture - Pending
Urine
11/11/24 18:24 Influenza Types A & B (GIRISH) - Final
Nasal Swab Negative for Influenza A & B, NAAT
Negative results must be combined with clinical observations
and patient history.
Nucleic Acid Amplification test (NAAT)performed on the
[employer] platform.
11/11/24 CT a/p: Severe distention of the bladder to the level of the umbilicus. Mild bilateral, right greater than left, hydronephrosis and moderate right hydroureter. No obstructing mass nor stone identified on the unenhanced scan. Progressed on
the right. New on the left.
11/11/24 CT head: stable postsurgical changes of the left frontal lobe with additional postsurgical changes of the posterior left frontal lobe and right corpus callosum versus residual disease. Stable mass effect on the lateral ventricles and 5 mm
midline shift to the right. Stable findings suggesting small old infarcts in the left parietal lobe, left occipital lobe, left thalamus and right cerebellum.
Assessment / Plan
# Complicated UTI due to severe urinary retention
# Gram-negative mindy bacteremia x 2 sets, urine source
# Leukocytosis
# Glioblastoma status post tumor resection October 08, 2024
- Await identification of GNR in blood cx.
- Follow urine cx.
- Agree with ceftriaxone (d2)
- Trend wbc.
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
Recent diagnosis brain high-grade glioblastoma status post left-sided craniotomy, resection of tumor October 08, 2024 at [facility]
Expressive aphasia
Diabetes mellitus
CVA
CKD3
Afib on Eliquis
Orthostatic hypotension
HLD
Urine incontinence
Gout
Nephrolithiasis
Left hand surgery
--- NOTE | 2024-11-12 12:36 | W.PN.HOSP.TC ---
Today's Communication/Plan
-
Continue antibiotic,
infectious disease consult
Assessment / Plan
Assessment / Plan
Impression:
64-year-old male past medical history of glioblastoma status post craniotomy on 10/08, diabetes, CVA, gout, atrial fibrillation on Eliquis, hypertension, orthostatic hypotension, hyperlipidemia, anemia, CKD 3, urinary incontinence, presenting with
shakiness and hiccups since yesterday. Patient had 1 episode of vomiting yesterday. Patient has tremor worse on the right side and fever of 100.1.
Admitted for sepsis secondary to UTI.
Blood culture came back positive, and infectious is consulted
Assessment/plan:
Severe sepsis with acute organ dysfunction
Severe sepsis secondary to UTI.
Acute organ dysfunction in form of acute metabolic encephalopathy
Patient meets sepsis criteria on admission
Heart rate 100
WBCs 14
Source of infection is UTI
IV fluid
IV antibiotic in form of Rocephin
Blood culture 2/2 positive for gram negative bacilli, pending sensitive
Urine culture pending
Consult infectious disease
CT abdomen pelvis showed:
Severe distention of the bladder to the level of the umbilicus. New
Mild bilateral, right greater than left, hydronephrosis and moderate right hydroureter. No obstructing mass nor stone identified on the unenhanced scan. Progressed on the right. New on the left.
Tiny nonobstructing bilateral renal stones. Grossly stable
Mild prostate hypertrophy. New
Moderate fecal material in the region of the rectum concerning for fecal impaction. Associated mild rectal wall thickening. Possible early stercoral colitis. New
Acute metabolic encephalopathy, secondary to sepsis
Improving
- Neurology was contacted by the admitting team since patient has recent craniotomy who did not have any further recommendations
Urinary retention
CT abdomen pelvis showed:
Severe distention of the bladder to the level of the umbilicus.
Status post Diaz catheter
Hyperglycemia secondary to infection/steroids
Type 2 diabetes
- Continue Lantus 14 units
- Insulin sliding scale
Hemoglobin A1c 7.1
Glioblastoma status post craniotomy on 10/08
- Continue Keppra for seizure prophylaxis
- Continue dexamethasone
History of CVA
Continue Eliquis/statin
Gout
- Continue gabapentin
Paroxysmal atrial fibrillation
- Currently in sinus rhythm.
- Continue metoprolol
- Continue Eliquis
Essential hypertension
Continue metoprolol
Orthostatic hypotension
- Continue midodrine
Hyperlipidemia
- Continue statin
Chronic anemia
- Hemoglobin stable
CODE STATUS: Full code
DVT prophylaxis: Eliquis
Diet: Diabetic
Disposition: Continue antibiotic, infectious disease consult
Total time spent on today's encounter was 65 minutes which included time spent in counseling the patient/family regarding diagnosis and treatment plan as listed above, goals of care, and symptom management. Case was discussed with nursing staff,
specialists, and care coordinators/case management. All labs and imaging personally reviewed by me. Remainder the time spent in detailed review of previous records, lab data, imaging, and other medical provider documentation.
Anticipated Discharge: > 48 hours
Subjective/Interval History
-
Date of Service: November 12, 2024
Patient seen and examined at bedside, he still confused but more communicating, denies any chest pain or shortness of breath.
Bladder scan shows more than 1000 cc of urinary retention.
Status post Diaz catheter.
Blood culture positive, ID consulted.
Objective Data
-
Labs:
Laboratory Results
11/12/24 11/12/24
06:12 06:13
WBC 11.2 H
Hgb 12.7 L
Hct 37.1 L
Plt Count 243
Sodium 138
Potassium 4.4
Chloride 106
Carbon Dioxide 25
BUN 36 H
Creatinine 1.1
Glucose 122 H
Calcium 8.7
Total Bilirubin 0.6
AST 21
ALT 57 H
Alkaline Phosphatase 51
Vital Signs:
Vital Signs
Temp Pulse Resp BP Pulse Ox
98.4 F 71 16 98/55 95
11/12/24 07:55 11/12/24 12:09 11/12/24 07:55 11/12/24 12:09 11/12/24 10:25
I&O
11/11/24 11/12/24 11/13/24
06:59 06:59 06:59
Intake Total 480 / 480
Balance 480 / 480
Physical Exam
-
General: Well Developed, Well Nourished, No Apparent Distress and Comfortable
HEENT: Normocephalic (Scalp jose/ wound is clean with no sign of bleeding breath), Atraumatic, No Ptosis, PERRLA and Nose Appears Normal
Respiratory: Clear to Auscultation and Non Labored Respirations
Cardiac: Regular Rhythm and S1/S2
Breast: Deferred by me
GI: Soft, Nontender, Nondistended and Normal Bowel Sounds
Genito-urinary: No Costovertebral Tender
Musculoskeletal: No Clubbing, No Cyanosis and No Edema
Skin: Warm
Neuro: Awake, Alert and No Motor Deficits
Psych: Calm and Confused
Data Reviewed
-
Diagnostic Radiology: Image personally visualized and interpreted and Report Reviewed by me
CT Scan: Image personally visualized and interpreted and Report Reviewed by me
Ultrasound: Image personally visualized and interpreted and Report Reviewed by me
MRI: Image personally visualized and interpreted and Report Reviewed by me
Medical Tests (Nuc Med, Echo etc): Image personally visualized and interpreted and Report Reviewed by me
Labs: Labs Reviewed by me
Old Records: Reviewed
[2024-11-12 13:10] LABS: Glucose - Point of Care 136 mg/dl (70-99)
[2024-11-12 15:55] VITALS: BP 99/53
[2024-11-12 17:02] LABS: Glucose - Point of Care 185 mg/dl (70-99)
[2024-11-12] MEDS: CRESTOR 20 MG PO (18:02)
[2024-11-12] MEDS: NOVOLOG FLEXPEN-LOW RESISTANCE 1 UNITS SC (18:02)
[2024-11-12] MEDS: ROCEPHIN 1000 MG IV (19:51)
[2024-11-12] MEDS: STERILE WATER FOR INJECTION 10 ML IV (19:52)
[2024-11-12 21:22] LABS: Glucose - Point of Care 200 mg/dl (70-99)
[2024-11-12] MEDS: LANTUS 0.14 UNITS SC (22:39)
[2024-11-12] MEDS: MELATONIN 5 MG PO (22:40)
[2024-11-12] MEDS: NEURONTIN 100 MG PO (22:40)
[2024-11-12 23:35] VITALS: BP 109/51
[2024-11-13] MEDS: NSS 1000 IV (03:57)
[2024-11-13 07:22] VITALS: BP 136/68
[2024-11-13] MEDS: PROTONIX 40 MG PO (07:52)
[2024-11-13] MEDS: KEPPRA 1000 MG PO ×2 (07:52→20:24)
[2024-11-13] MEDS: COLACE 100 MG PO ×2 (07:52→20:24)
[2024-11-13] MEDS: SENOKOT 17.2 MG PO (07:53)
[2024-11-13] MEDS: ELIQUIS 5 MG PO ×2 (07:53→20:24)
[2024-11-13] MEDS: DECADRON 2 MG PO ×2 (07:53→20:24)
[2024-11-13] MEDS: TOPROL XL 12.5 MG PO (07:53)
[2024-11-13] MEDS: ProAmatine 10 MG PO ×3 (07:53→17:18)
[2024-11-13] MEDS: ZINC OXIDE OINTMENT 1 APPLIC TOPICAL ×3 (07:54→20:28)
[2024-11-13] MEDS: DESENEX/MITRAZOL/ZEASORB 1 APPLIC TOPICAL ×2 (07:54→20:29)
[2024-11-13 08:04] LABS: Glucose - Point of Care 144 mg/dl (70-99)
[2024-11-13] MEDS: NOVOLOG FLEXPEN-LOW RESISTANCE SC (08:09)
[2024-11-13] MEDS: LOTRIMIN 1% CREAM 1 APPLIC TOPICAL ×2 (08:10→20:29)
[2024-11-13 08:19] LABS: Hematocrit 35.2 % (39.0-52.0); Hemoglobin 11.8 g/dL (13.0-18.0); Mean Corp Hgb Conc. 33.5 g/dL (33.0-37.0); Mean Corpuscular Hgb 30.3 pg (27.0-31.0); Mean Corpuscular Volume 90.3 fL (80.0-94.0); Mean Platelet Volume 10.7 fL (7.4-10.4); Platelet Count 240 10^3/uL (130-400); Red Cell Dist. Width 13.5 % (11.5-14.5); White Blood Cell Count 11.1 10^3/uL (4.8-10.8)
[2024-11-13 09:00] LABS: Blood Urea Nitrogen 33 mg/dl (9-20); Calcium 8.8 mg/dl (8.4-10.2); Carbon Dioxide 26 mmol/L (22-30); Chloride 108 mmol/L (98-107); Estimated Creatinine Clearance 77 ml/min; Glucose 156 mg/dl (70-99); Potassium 4.5 mmol/L (3.5-5.1); Sodium 141 mmol/L (135-145); eGFR > 60.00
--- NOTE | 2024-11-13 10:35 | W.PN.ID1 ---
Date of Service
Date of Service: November 13, 2024
Today's Communication
Replace ceftriaxone with cefepime.
Assessment / Plan
# Complicated UTI due to severe urinary retention
# Enterobacter mindy bacteremia x 2 sets, urine source
# Leukocytosis improving
# Glioblastoma status post tumor resection October 08, 2024
- urine cx pending.
- Enterobacter cloacae -high risk for inducible Amp-C resistance.
DC ceftriaxone (d3)
-Start cefepime 1g IV q6h
- Trend wbc.
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
Recent diagnosis brain high-grade glioblastoma status post left-sided craniotomy, resection of tumor October 08, 2024 at [facility]
Expressive aphasia
Diabetes mellitus
CVA
CKD3
Afib on Eliquis
Orthostatic hypotension
HLD
Urine incontinence
Gout
Nephrolithiasis
Left hand surgery
Chief Complaint
-: UTI and Bacteremia
Subjective / Review of Systems
Pt more alert today. Feels better. No further shaking.
Vital Signs / Physical Exam
Vital Signs
Vital Signs
Temp Pulse Resp BP Pulse Ox
98.4 F 63 16 136/68 98
11/13/24 07:22 11/13/24 07:22 11/13/24 07:22 11/13/24 07:22 11/13/24 07:22
Physical Exam
Constitutional: No Acute Distress, Comfortable and Chronically Ill
Eyes: Sclera Anicteric
Cardiovascular: Regular Rate and S1/S2
Pulmonary: Clear
Gastrointestinal: Soft, Non Tender, Non Distended and Normal Bowel Sounds
Genito-Urinary: Diaz and Clear Urine; Negative CVA Tenderness
Extremities: Negative Edema
Neurological: AO x 3
Objective Data
Lab Data
Lab Results
11/13/24 07:07
11/13/24 07:07
Estimated Creat Clear 77 ml/min 11/13/24 07:07
Lactic Acid 1.4 mmol/L (0.7-2.0) 11/11/24 18:24
Total Bilirubin 0.6 mg/dl (0.2-1.3) 11/12/24 06:12
AST 21 U/L (17-59) 11/12/24 06:12
ALT 57 U/L (0-50) H 11/12/24 06:12
Alkaline Phosphatase 51 U/L (38-126) 11/12/24 06:12
Most recent labs reviewed.
Micro Results:
11/11/24 19:39 Blood Culture - Preliminary
Blood/Venous Enterobacter species
Gram Stain - Preliminary
11/11/24 19:39 Blood Culture - Preliminary
Blood/Venous Enterobacter species
Gram Stain - Preliminary
11/11/24 19:39 Urine Culture - Pending
Urine
11/11/24 18:24 Influenza Types A & B (GIRISH) - Final
Nasal Swab Negative for Influenza A & B, NAAT
Negative results must be combined with clinical observations
and patient history.
Nucleic Acid Amplification test (NAAT)performed on the
[employer] platform.
11/11/24 CT a/p: Severe distention of the bladder to the level of the umbilicus. Mild bilateral, right greater than left, hydronephrosis and moderate right hydroureter. No obstructing mass nor stone identified on the unenhanced scan. Progressed on
the right. New on the left.
11/11/24 CT head: stable postsurgical changes of the left frontal lobe with additional postsurgical changes of the posterior left frontal lobe and right corpus callosum versus residual disease. Stable mass effect on the lateral ventricles and 5 mm
midline shift to the right. Stable findings suggesting small old infarcts in the left parietal lobe, left occipital lobe, left thalamus and right cerebellum.
[2024-11-13 12:21] LABS: Glucose - Point of Care 282 mg/dl (70-99)
[2024-11-13] MEDS: MAXIPIME 1000 MG IV ×2 (13:20→17:19)
[2024-11-13] MEDS: NOVOLOG FLEXPEN-LOW RESISTANCE 3 UNITS SC (13:20)
[2024-11-13] MEDS: STERILE WATER FOR INJECTION 10 ML IV ×2 (13:20→17:19)
[2024-11-13 15:08] VITALS: BP 134/58
[2024-11-13 16:56] LABS: Glucose - Point of Care 366 mg/dl (70-99)
[2024-11-13] MEDS: CRESTOR 20 MG PO (17:18)
[2024-11-13] MEDS: NOVOLOG FLEXPEN-LOW RESISTANCE 5 UNITS SC (17:19)
[2024-11-13 21:17] LABS: Glucose - Point of Care 186 mg/dl (70-99)
[2024-11-13] MEDS: LANTUS 0.14 UNITS SC (21:38)
[2024-11-13] MEDS: NEURONTIN 100 MG PO (21:39)
[2024-11-13] MEDS: MELATONIN 5 MG PO (21:39)
[2024-11-13 23:12] VITALS: BP 151/70
[2024-11-14] MEDS: MAXIPIME 1000 MG IV ×2 (00:36→05:45)
[2024-11-14] MEDS: STERILE WATER FOR INJECTION 10 ML IV ×2 (00:37→05:45)
[2024-11-14 07:25] LABS: Glucose - Point of Care 172 mg/dl (70-99)
[2024-11-14 07:35] VITALS: BP 145/74
[2024-11-14 08:22] LABS: Hematocrit 37.2 % (39.0-52.0); Hemoglobin 12.5 g/dL (13.0-18.0); Mean Corp Hgb Conc. 33.6 g/dL (33.0-37.0); Mean Corpuscular Volume 89.4 fL (80.0-94.0); Mean Platelet Volume 10.9 fL (7.4-10.4); Platelet Count 252 10^3/uL (130-400); Red Blood Cell Count 4.16 10^6/uL (4.70-6.10); Red Cell Dist. Width 13.2 % (11.5-14.5); White Blood Cell Count 13.1 10^3/uL (4.8-10.8)
[2024-11-14 08:34] LABS: Blood Urea Nitrogen 26 mg/dl (9-20); Carbon Dioxide 28 mmol/L (22-30); Chloride 102 mmol/L (98-107); Estimated Creatinine Clearance 86 ml/min; Glucose 143 mg/dl (70-99); Potassium 4.6 mmol/L (3.5-5.1); Sodium 135 mmol/L (135-145); eGFR > 60.00
[2024-11-14] MEDS: DECADRON 2 MG PO ×2 (08:34→20:59)
[2024-11-14] MEDS: PROTONIX 40 MG PO (08:34)
[2024-11-14] MEDS: ProAmatine 10 MG PO ×3 (08:34→17:02)
[2024-11-14] MEDS: TOPROL XL 12.5 MG PO (08:34)
[2024-11-14] MEDS: ELIQUIS 5 MG PO ×2 (08:34→20:59)
[2024-11-14] MEDS: SENOKOT 17.2 MG PO (08:34)
[2024-11-14] MEDS: KEPPRA 1000 MG PO ×2 (08:34→20:59)
[2024-11-14] MEDS: COLACE 100 MG PO ×2 (08:34→20:59)
[2024-11-14] MEDS: DESENEX/MITRAZOL/ZEASORB 1 APPLIC TOPICAL ×2 (08:35→20:59)
[2024-11-14] MEDS: LOTRIMIN 1% CREAM 1 APPLIC TOPICAL ×2 (08:35→21:00)
[2024-11-14] MEDS: NOVOLOG FLEXPEN-LOW RESISTANCE 1 UNITS SC (08:35)
[2024-11-14] MEDS: ZINC OXIDE OINTMENT 1 APPLIC TOPICAL ×3 (08:37→22:13)
--- NOTE | 2024-11-14 11:19 | W.PN.ID1 ---
Date of Service
Date of Service: November 14, 2024
Today's Communication
Can transition cefepime 1g IV q6h to Bactrim DS 1 tab po bid through 11/24.
Assessment / Plan
# Complicated UTI due to severe urinary retention
# Enterobacter mindy bacteremia x 2 sets, urine source
# Leukocytosis
# Glioblastoma status post tumor resection October 08, 2024
- urine cx mixed martha.
- Enterobacter cloacae -high risk for inducible Amp-C resistance.
- Can transition cefepime 1g IV q6h to Bactrim DS 1 tab po bid through 11/24.
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
Recent diagnosis brain high-grade glioblastoma status post left-sided craniotomy, resection of tumor October 08, 2024 at [facility]
Expressive aphasia
Diabetes mellitus
CVA
CKD3
Afib on Eliquis
Orthostatic hypotension
HLD
Urine incontinence
Gout
Nephrolithiasis
Left hand surgery
Chief Complaint
-: UTI and Bacteremia
Subjective / Review of Systems
He is feeling better.
Vital Signs / Physical Exam
Vital Signs
Vital Signs
Temp Pulse Resp BP Pulse Ox
97.7 F 62 18 145/74 96
11/14/24 07:35 11/14/24 07:35 11/14/24 07:35 11/14/24 07:35 11/14/24 07:35
Physical Exam
Constitutional: No Acute Distress and Chronically Ill
Cardiovascular: Regular Rate and S1/S2
Pulmonary: Clear
Gastrointestinal: Soft, Non Tender, Non Distended and Normal Bowel Sounds
Genito-Urinary: Diaz
Extremities: Negative Edema
Neurological: AO x 3
Objective Data
Lab Data
Lab Results
11/14/24 06:31
11/14/24 06:31
Estimated Creat Clear 86 ml/min 11/14/24 06:31
Lactic Acid 1.4 mmol/L (0.7-2.0) 11/11/24 18:24
Total Bilirubin 0.6 mg/dl (0.2-1.3) 11/12/24 06:12
AST 21 U/L (17-59) 11/12/24 06:12
ALT 57 U/L (0-50) H 11/12/24 06:12
Alkaline Phosphatase 51 U/L (38-126) 11/12/24 06:12
Most recent labs reviewed.
Micro Results:
11/11/24 19:39 Blood Culture - Preliminary
Blood/Venous Enterobacter cloacae
Gram Stain - Preliminary
11/11/24 19:39 Blood Culture - Preliminary
Blood/Venous Enterobacter cloacae
Gram Stain - Preliminary
11/11/24 19:39 Urine Culture - Final
Urine
11/11/24 18:24 Influenza Types A & B (GIRISH) - Final
Nasal Swab Negative for Influenza A & B, NAAT
Negative results must be combined with clinical observations
and patient history.
Nucleic Acid Amplification test (NAAT)performed on the
[employer] platform.
11/11/24 CT a/p: Severe distention of the bladder to the level of the umbilicus. Mild bilateral, right greater than left, hydronephrosis and moderate right hydroureter. No obstructing mass nor stone identified on the unenhanced scan. Progressed on
the right. New on the left.
11/11/24 CT head: stable postsurgical changes of the left frontal lobe with additional postsurgical changes of the posterior left frontal lobe and right corpus callosum versus residual disease. Stable mass effect on the lateral ventricles and 5 mm
midline shift to the right. Stable findings suggesting small old infarcts in the left parietal lobe, left occipital lobe, left thalamus and right cerebellum.
--- NOTE | 2024-11-14 11:35 | W.PN.HOSP.TC ---
Today's Communication/Plan
-
Pending physical therapy evaluation
Assessment / Plan
Assessment / Plan
Impression:
64-year-old male past medical history of glioblastoma status post craniotomy on 10/08, diabetes, CVA, gout, atrial fibrillation on Eliquis, hypertension, orthostatic hypotension, hyperlipidemia, anemia, CKD 3, urinary incontinence, presenting with
shakiness and hiccups since yesterday. Patient had 1 episode of vomiting yesterday. Patient has tremor worse on the right side and fever of 100.1.
Admitted for sepsis secondary to UTI.
Blood culture came back positive, and infectious is consulted
Final blood culture back positive for Enterobacter Colace sensitive to Bactrim.
Infectious is recommending to transition cefepime 1g IV q6h to Bactrim DS 1 tab po bid through 11/24.
Assessment/plan:
Severe sepsis with acute organ dysfunction
Severe sepsis secondary to UTI.
Acute organ dysfunction in form of acute metabolic encephalopathy
Patient meets sepsis criteria on admission
Heart rate 100
WBCs 14
Source of infection is UTI
IV fluid
IV antibiotic in form of Rocephin
Blood culture 2/2 positive for gram negative bacilli, pending sensitive
Urine culture pending
Consulted infectious disease
CT abdomen pelvis showed:
Severe distention of the bladder to the level of the umbilicus. New
Mild bilateral, right greater than left, hydronephrosis and moderate right hydroureter. No obstructing mass nor stone identified on the unenhanced scan. Progressed on the right. New on the left.
Tiny nonobstructing bilateral renal stones. Grossly stable
Mild prostate hypertrophy. New
Moderate fecal material in the region of the rectum concerning for fecal impaction. Associated mild rectal wall thickening. Possible early stercoral colitis.
11/14
transition cefepime 1g IV q6h to Bactrim DS 1 tab po bid through 11/24.
Acute metabolic encephalopathy, secondary to sepsis
Improving
- Neurology was contacted by the admitting team since patient has recent craniotomy who did not have any further recommendations
Glioblastoma status post craniotomy on 10/08
- Continue Keppra for seizure prophylaxis
- Continue dexamethasone, currently on 2 mg twice daily, until follow-up with neurosurgery as OP.
Acute Urinary retention
CT abdomen pelvis showed:
Severe distention of the bladder to the level of the umbilicus.
Status post Diaz catheter
Start Flomax at night.
Follow-up with urology as outpatient.
Hyperglycemia secondary to infection/steroids
Type 2 diabetes
- Continue Lantus 14 units
- Insulin sliding scale
Hemoglobin A1c 7.1
History of CVA
Continue Eliquis/statin
Gout
- Continue gabapentin
Paroxysmal atrial fibrillation
- Currently in sinus rhythm.
- Continue metoprolol
- Continue Eliquis
Essential hypertension
Continue metoprolol
Orthostatic hypotension
- Continue midodrine
Hyperlipidemia
- Continue statin
Chronic anemia
- Hemoglobin stable
CODE STATUS: Full code
DVT prophylaxis: Eliquis
Diet: Diabetic
Disposition: Pending physical therapy evaluation to determine discharge plan,
Total time spent on today's encounter was 65 minutes which included time spent in counseling the patient/family regarding diagnosis and treatment plan as listed above, goals of care, and symptom management. Case was discussed with nursing staff,
specialists, and care coordinators/case management. All labs and imaging personally reviewed by me. Remainder the time spent in detailed review of previous records, lab data, imaging, and other medical provider documentation.
Anticipated Discharge: Within 24 hours
Subjective/Interval History
-
Date of Service: November 14, 2024
Patient seen and examined at bedside.
More awake and oriented.
Received final culture and infectious disease adjusted antibiotic to Bactrim.
Objective Data
-
Labs:
Laboratory Results
11/14/24
06:31
WBC 13.1 H
Hgb 12.5 L
Hct 37.2 L
Plt Count 252
Sodium 135
Potassium 4.6
Chloride 102
Carbon Dioxide 28
BUN 26 H
Creatinine 0.8
Glucose 143 H
Calcium 9.0
Vital Signs:
Vital Signs
Temp Pulse Resp BP Pulse Ox
97.7 F 62 18 145/74 96
11/14/24 07:35 11/14/24 07:35 11/14/24 07:35 11/14/24 07:35 11/14/24 07:35
I&O
11/13/24 11/14/24 11/15/24
06:59 06:59 06:59
Intake Total 3620 / 3620 940 / 940 180 / 180
Output Total 3950 / 3950 2250 / 2250
Balance -330 / -330 -1310 / -1310 180 / 180
Physical Exam
-
General: Well Developed, Well Nourished, No Apparent Distress and Comfortable
HEENT: Normocephalic (Scalp jose/ wound is clean with no sign of bleeding breath), Atraumatic, No Ptosis, PERRLA and Nose Appears Normal
Respiratory: Clear to Auscultation and Non Labored Respirations
Cardiac: Regular Rhythm and S1/S2
Breast: Deferred by me
GI: Soft, Nontender, Nondistended and Normal Bowel Sounds
Genito-urinary: No Costovertebral Tender
Musculoskeletal: No Clubbing, No Cyanosis and No Edema
Skin: Warm
Neuro: Awake, Alert and No Motor Deficits
Psych: Calm
Data Reviewed
-
Diagnostic Radiology: Image personally visualized and interpreted and Report Reviewed by me
CT Scan: Image personally visualized and interpreted and Report Reviewed by me
Ultrasound: Image personally visualized and interpreted and Report Reviewed by me
MRI: Image personally visualized and interpreted and Report Reviewed by me
Medical Tests (Nuc Med, Echo etc): Image personally visualized and interpreted and Report Reviewed by me
Labs: Labs Reviewed by me
Old Records: Reviewed
[2024-11-14 11:46] LABS: Glucose - Point of Care 265 mg/dl (70-99)
[2024-11-14] MEDS: NOVOLOG FLEXPEN-LOW RESISTANCE 3 UNITS SC (12:02)
[2024-11-14] MEDS: BACTRIM DS 800 MG/160 MG 1 TABLET PO ×2 (12:12→20:59)
[2024-11-14 14:38] VITALS: BP 149/85; PULSE 66
[2024-11-14 15:01] VITALS: BP 138/78
[2024-11-14 16:56] LABS: Glucose - Point of Care 205 mg/dl (70-99)
[2024-11-14] MEDS: NOVOLOG FLEXPEN-MODERATE RESISTANCE 3 UNITS SC (17:01)
[2024-11-14] MEDS: CRESTOR 20 MG PO (17:02)
[2024-11-14 21:34] LABS: Glucose - Point of Care 252 mg/dl (70-99)
[2024-11-14] MEDS: NEURONTIN 100 MG PO (21:51)
[2024-11-14] MEDS: MELATONIN 5 MG PO (21:51)
[2024-11-14] MEDS: LANTUS 0.14 UNITS SC (21:55)
[2024-11-14 23:16] VITALS: BP 163/87
[2024-11-15 03:10] VITALS: BP 136/70
[2024-11-15 06:50] LABS: Hemoglobin 12.9 g/dL (13.0-18.0); Mean Corp Hgb Conc. 33.9 g/dL (33.0-37.0); Mean Corpuscular Volume 88.4 fL (80.0-94.0); Mean Platelet Volume 10.4 fL (7.4-10.4); Platelet Count 280 10^3/uL (130-400); Red Cell Dist. Width 13.1 % (11.5-14.5); White Blood Cell Count 10.3 10^3/uL (4.8-10.8)
[2024-11-15 07:09] LABS: Blood Urea Nitrogen 24 mg/dl (9-20); Calcium 9.4 mg/dl (8.4-10.2); Carbon Dioxide 31 mmol/L (22-30); Chloride 97 mmol/L (98-107); Estimated Creatinine Clearance 77 ml/min; Glucose 210 mg/dl (70-99); Potassium 4.7 mmol/L (3.5-5.1); Sodium 136 mmol/L (135-145); eGFR > 60.00
[2024-11-15 08:13] LABS: Glucose - Point of Care 200 mg/dl (70-99)
[2024-11-15 09:31] VITALS: BP 112/73
[2024-11-15 09:38] VITALS: BP 124/75; PULSE 62; O2SAT 96
[2024-11-15] MEDS: PROTONIX 40 MG PO (09:44)
[2024-11-15] MEDS: BACTRIM DS 800 MG/160 MG 1 TABLET PO ×2 (09:44→20:56)
[2024-11-15] MEDS: COLACE 100 MG PO ×2 (09:44→20:56)
[2024-11-15] MEDS: DECADRON 2 MG PO ×2 (09:44→20:56)
[2024-11-15] MEDS: TOPROL XL 12.5 MG PO (09:44)
[2024-11-15] MEDS: ProAmatine 10 MG PO ×3 (09:44→17:28)
[2024-11-15] MEDS: KEPPRA 1000 MG PO ×2 (09:45→20:56)
[2024-11-15] MEDS: SENOKOT 17.2 MG PO (09:45)
[2024-11-15] MEDS: ELIQUIS 5 MG PO ×2 (09:45→20:56)
[2024-11-15] MEDS: NOVOLOG FLEXPEN-MODERATE RESISTANCE 3 UNITS SC (09:45)
[2024-11-15] MEDS: ZINC OXIDE OINTMENT 1 APPLIC TOPICAL ×3 (09:46→21:07)
[2024-11-15] MEDS: DESENEX/MITRAZOL/ZEASORB 1 APPLIC TOPICAL ×2 (09:46→20:58)
[2024-11-15] MEDS: LOTRIMIN 1% CREAM 1 APPLIC TOPICAL ×2 (09:47→20:58)
--- NOTE | 2024-11-15 10:14 | W.PN.ID1 ---
Date of Service
Date of Service: November 15, 2024
Today's Communication
Continue Bactrim DS 1 tab po bid through 11/24.
Assessment / Plan
# Complicated UTI due to severe urinary retention
# Enterobacter mindy bacteremia x 2 sets, urine source
# Leukocytosis - resolved
# Glioblastoma status post tumor resection October 08, 2024
- urine cx mixed martha.
- Enterobacter cloacae -high risk for inducible Amp-C resistance.
- Continue Bactrim DS 1 tab po bid through 11/24.
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
Recent diagnosis brain high-grade glioblastoma status post left-sided craniotomy, resection of tumor October 08, 2024 at [facility]
Expressive aphasia
Diabetes mellitus
CVA
CKD3
Afib on Eliquis
Orthostatic hypotension
HLD
Urine incontinence
Gout
Nephrolithiasis
Left hand surgery
Chief Complaint
-: UTI and Bacteremia
Subjective / Review of Systems
Tolerating Bactrim. No complaints.
Vital Signs / Physical Exam
Vital Signs
Vital Signs
Temp Pulse Resp BP Pulse Ox
98.2 F 76 16 112/73 97
11/15/24 09:31 11/15/24 09:44 11/15/24 09:31 11/15/24 09:44 11/15/24 09:31
Physical Exam
Constitutional: Comfortable and Chronically Ill
Cardiovascular: Regular Rate and S1/S2
Pulmonary: Clear
Gastrointestinal: Soft, Non Tender, Non Distended and Normal Bowel Sounds
Genito-Urinary: Negative Diaz or CVA Tenderness
Extremities: Negative Edema
Neurological: AO x 3
Objective Data
Lab Data
Lab Results
11/15/24 05:53
11/15/24 05:53
Estimated Creat Clear 77 ml/min 11/15/24 05:53
Lactic Acid 1.4 mmol/L (0.7-2.0) 11/11/24 18:24
Total Bilirubin 0.6 mg/dl (0.2-1.3) 11/12/24 06:12
AST 21 U/L (17-59) 11/12/24 06:12
ALT 57 U/L (0-50) H 11/12/24 06:12
Alkaline Phosphatase 51 U/L (38-126) 11/12/24 06:12
Most recent labs reviewed.
Micro Results:
11/11/24 19:39 Blood Culture - Preliminary
Blood/Venous Enterobacter cloacae
Gram Stain - Preliminary
11/11/24 19:39 Blood Culture - Preliminary
Blood/Venous Enterobacter cloacae
Gram Stain - Preliminary
11/11/24 19:39 Urine Culture - Final
Urine
11/11/24 18:24 Influenza Types A & B (GIRISH) - Final
Nasal Swab Negative for Influenza A & B, NAAT
Negative results must be combined with clinical observations
and patient history.
Nucleic Acid Amplification test (NAAT)performed on the
[employer] platform.
11/11/24 CT a/p: Severe distention of the bladder to the level of the umbilicus. Mild bilateral, right greater than left, hydronephrosis and moderate right hydroureter. No obstructing mass nor stone identified on the unenhanced scan. Progressed on
the right. New on the left.
11/11/24 CT head: stable postsurgical changes of the left frontal lobe with additional postsurgical changes of the posterior left frontal lobe and right corpus callosum versus residual disease. Stable mass effect on the lateral ventricles and 5 mm
midline shift to the right. Stable findings suggesting small old infarcts in the left parietal lobe, left occipital lobe, left thalamus and right cerebellum.
[2024-11-15 12:32] LABS: Glucose - Point of Care 294 mg/dl (70-99)
[2024-11-15] MEDS: NOVOLOG FLEXPEN-MODERATE RESISTANCE 5 UNITS SC (12:38)
--- NOTE | 2024-11-15 12:54 | CM ---
PT indicates need for acute rehab.
Spoke with Chandrika Easton pt [facility].
Referral placed for [facility] .
Requested order for PMR consult.
LM with .
PLAN To acute rehab after accepted and auth
--- NOTE | 2024-11-15 14:52 | W.PN.HOSP.TC ---
Today's Communication/Plan
-
Continue oral antibiotics per
Replace Diaz catheter
PMNR consult with plan for acute rehab discharge.
Assessment / Plan
Assessment / Plan
Impression:
64-year-old male past medical history of glioblastoma status post craniotomy on 10/08, diabetes, CVA, gout, atrial fibrillation on Eliquis, hypertension, orthostatic hypotension, hyperlipidemia, anemia, CKD 3, urinary incontinence, presenting with
shakiness and hiccups since yesterday. Patient had 1 episode of vomiting yesterday. Patient has tremor worse on the right side and fever of 100.1.
Admitted for sepsis secondary to UTI.
Blood culture came back positive, and infectious is consulted
Final blood culture back positive for Enterobacter Colace sensitive to Bactrim.
Infectious is recommending to transition cefepime 1g IV q6h to Bactrim DS 1 tab po bid through 11/24.
Assessment/plan:
Severe sepsis with acute organ dysfunction
Severe sepsis secondary to UTI.
Acute organ dysfunction in form of acute metabolic encephalopathy
Patient meets sepsis criteria on admission
Heart rate 100
WBCs 14
Source of infection is UTI
IV fluid
IV antibiotic in form of Rocephin
Blood culture 2/2 positive for gram negative bacilli, pending sensitive
Urine culture pending
Consulted infectious disease
CT abdomen pelvis showed:
Severe distention of the bladder to the level of the umbilicus. New
Mild bilateral, right greater than left, hydronephrosis and moderate right hydroureter. No obstructing mass nor stone identified on the unenhanced scan. Progressed on the right. New on the left.
Tiny nonobstructing bilateral renal stones. Grossly stable
Mild prostate hypertrophy. New
Moderate fecal material in the region of the rectum concerning for fecal impaction. Associated mild rectal wall thickening. Possible early stercoral colitis.
11/14
transition cefepime 1g IV q6h to Bactrim DS 1 tab po bid through 11/24.
Acute metabolic encephalopathy, secondary to sepsis
Improving
- Neurology was contacted by the admitting team since patient has recent craniotomy who did not have any further recommendations
Glioblastoma status post craniotomy on 10/08
- Continue Keppra for seizure prophylaxis
- Continue dexamethasone, currently on 2 mg twice daily, until follow-up with neurosurgery as OP.
Acute Urinary retention
CT abdomen pelvis showed:
Severe distention of the bladder to the level of the umbilicus.
Initiated on Flomax
Failed voiding trial with Diaz catheter inserted on 11/15.
Hyperglycemia secondary to infection/steroids
Type 2 diabetes
- Continue Lantus 14 units
- Insulin sliding scale
Hemoglobin A1c 7.1
History of CVA
Continue Eliquis/statin
Gout
- Continue gabapentin
Paroxysmal atrial fibrillation
- Currently in sinus rhythm.
- Continue metoprolol
- Continue Eliquis
Essential hypertension
Continue metoprolol
Orthostatic hypotension
- Continue midodrine
Hyperlipidemia
- Continue statin
Chronic anemia
- Hemoglobin stable
CODE STATUS: Full code
DVT prophylaxis: Eliquis
Diet: Diabetic
Disposition: Pending physical therapy evaluation to determine discharge plan,
Anticipated Discharge: 24 - 48 hours
Subjective/Interval History
-
Date of Service: November 15, 2024
Objective Data
-
Labs:
Laboratory Results
11/15/24
05:53
WBC 10.3
Hgb 12.9 L
Hct 38.0 L
Plt Count 280
Sodium 136
Potassium 4.7
Chloride 97 L
Carbon Dioxide 31 H
BUN 24 H
Creatinine 0.9
Glucose 210 H
Calcium 9.4
Vital Signs:
Vital Signs
Temp Pulse Resp BP Pulse Ox
98.2 F 66 16 94/59 97
11/15/24 09:31 11/15/24 12:25 11/15/24 09:31 11/15/24 12:25 11/15/24 09:50
I&O
11/14/24 11/15/24 11/16/24
06:59 06:59 06:59
Intake Total 940 / 940 300 / 300
Output Total 2250 / 2250 3525 / 3525
Balance -1310 / -1310 -3225 / -3225
--- NOTE | 2024-11-15 14:53 | PTCARENOTE ---
Pt has an order to place flores, 16Fr flores placed x2 attempts. Pt has no complaints. 2nd hand present
[2024-11-15 15:30] VITALS: BP 138/77
[2024-11-15 16:47] LABS: Glucose - Point of Care 189 mg/dl (70-99)
[2024-11-15 16:51] VITALS: BP 121/69; PULSE 75
[2024-11-15] MEDS: NOVOLOG FLEXPEN-MODERATE RESISTANCE 1 UNITS SC (17:28)
[2024-11-15] MEDS: CRESTOR 20 MG PO (17:28)
[2024-11-15] MEDS: NEURONTIN 100 MG PO (21:06)
[2024-11-15] MEDS: MELATONIN 5 MG PO (21:07)
[2024-11-15 21:24] LABS: Glucose - Point of Care 318 mg/dl (70-99)
[2024-11-15] MEDS: LANTUS 0.14 UNITS SC (21:34)
[2024-11-15 23:20] VITALS: BP 145/79
[2024-11-16 07:41] VITALS: BP 128/73
[2024-11-16 08:02] LABS: Glucose - Point of Care 210 mg/dl (70-99)
[2024-11-16] MEDS: NOVOLOG FLEXPEN-MODERATE RESISTANCE 3 UNITS SC (08:18)
[2024-11-16] MEDS: TOPROL XL 12.5 MG PO (08:21)
[2024-11-16] MEDS: DECADRON 2 MG PO ×2 (08:21→21:37)
[2024-11-16] MEDS: PROTONIX 40 MG PO (08:21)
[2024-11-16] MEDS: KEPPRA 1000 MG PO ×2 (08:22→21:37)
[2024-11-16] MEDS: COLACE 100 MG PO ×2 (08:22→21:36)
[2024-11-16] MEDS: SENOKOT 17.2 MG PO (08:22)
[2024-11-16] MEDS: BACTRIM DS 800 MG/160 MG 1 TABLET PO ×2 (08:22→21:36)
[2024-11-16] MEDS: ELIQUIS 5 MG PO ×2 (08:22→21:37)
[2024-11-16] MEDS: ProAmatine 10 MG PO ×3 (08:22→17:29)
[2024-11-16] MEDS: DESENEX/MITRAZOL/ZEASORB 1 APPLIC TOPICAL ×2 (08:27→21:38)
[2024-11-16] MEDS: LOTRIMIN 1% CREAM 1 APPLIC TOPICAL ×2 (08:27→21:39)
[2024-11-16] MEDS: ZINC OXIDE OINTMENT 1 APPLIC TOPICAL ×3 (08:28→21:39)
--- NOTE | 2024-11-16 11:43 | W.PN.ID1 ---
Date of Service
Date of Service: November 16, 2024
Today's Communication
Continue Bactrim DS 1 tab po bid through 11/24.
Assessment / Plan
# Complicated UTI due to severe urinary retention
# Enterobacter mindy bacteremia x 2 sets, urine source
# Leukocytosis - resolved
# Glioblastoma status post tumor resection October 08, 2024
- urine cx mixed martha.
- Enterobacter cloacae -high risk for inducible Amp-C resistance.
- Continue Bactrim DS 1 tab po bid through 11/24.
Potassium normal.
# Conditions [employer]PER[employer]
Recent diagnosis brain high-grade glioblastoma status post left-sided craniotomy, resection of tumor October 08, 2024 at [facility]
Expressive aphasia
Diabetes mellitus
CVA
CKD3
Afib on Eliquis
Orthostatic hypotension
HLD
Urine incontinence
Gout
Nephrolithiasis
Left hand surgery
Chief Complaint
-: UTI and Bacteremia
Subjective / Review of Systems
Feels well.
Vital Signs / Physical Exam
Vital Signs
Vital Signs
Temp Pulse Resp BP Pulse Ox
97.7 F 57 18 128/73 100
11/16/24 07:41 11/16/24 08:21 11/16/24 07:41 11/16/24 08:21 11/16/24 08:15
Physical Exam
Constitutional: Chronically Ill and Non-toxic
Cardiovascular: Regular Rate and S1/S2
Pulmonary: Clear
Gastrointestinal: Soft, Non Tender, Non Distended and Normal Bowel Sounds
Genito-Urinary: Negative Diaz or CVA Tenderness
Extremities: Negative Edema
Neurological: AO x 3
Objective Data
Lab Data
Lab Results
11/15/24 05:53
11/15/24 05:53
Estimated Creat Clear 77 ml/min 11/15/24 05:53
Lactic Acid 1.4 mmol/L (0.7-2.0) 11/11/24 18:24
Total Bilirubin 0.6 mg/dl (0.2-1.3) 11/12/24 06:12
AST 21 U/L (17-59) 11/12/24 06:12
ALT 57 U/L (0-50) H 11/12/24 06:12
Alkaline Phosphatase 51 U/L (38-126) 11/12/24 06:12
Most recent labs reviewed.
Micro Results:
11/11/24 19:39 Blood Culture - Preliminary
Blood/Venous Enterobacter cloacae
Gram Stain - Preliminary
11/11/24 19:39 Blood Culture - Preliminary
Blood/Venous Enterobacter cloacae
Gram Stain - Preliminary
11/11/24 19:39 Urine Culture - Final
Urine
11/11/24 18:24 Influenza Types A & B (GIRISH) - Final
Nasal Swab Negative for Influenza A & B, NAAT
Negative results must be combined with clinical observations
and patient history.
Nucleic Acid Amplification test (NAAT)performed on the
[employer] platform.
[2024-11-16 12:33] LABS: Glucose - Point of Care 279 mg/dl (70-99)
[2024-11-16] MEDS: NOVOLOG FLEXPEN-MODERATE RESISTANCE 5 UNITS SC (12:43)
[2024-11-16 15:07] VITALS: BP 126/67; PULSE 61; O2SAT 96
[2024-11-16 15:13] VITALS: BP 126/67; PULSE 62
[2024-11-16 15:25] VITALS: BP 105/60
--- NOTE | 2024-11-16 15:30 | CON.MD ---
Documented by User: Anette Yang PA-C 11/16/24 15:48
Consultation - Medical
-
Referring physician: Barber Suarez
Chief Complaint:�Brain tumor
�
History of Present Illness:��63 year old male with PMH of ( [id number] diabetes melitis, CVA, gout, kidney stones, HTN, glioblastoma s/p craniotomy on 2024, orthostatic hypotension, urine incontinence, CKD3 ) presented to [place]
ED on 11[facility]12[facility] for evaluation of episodes of significant shaking, tremors, elevated white blood cells and a temp of 100.1. Chest x-ray done in the ED showed basilar atelectasis. CT of the abdomen pelvis showed severe bladder
distention to the level of the umbilicus with right greater than left hydronephrosis. Diaz was placed and IV antibiotics started. Admission blood cultures were positive. Admitted with complicated UTI due to severe urinary retention.
Enterobacter mindy bacteremia x 2 sets from urine source. Urine culture showed mixed martha. Enterobacter cloacae -high risk for inducible Amp-C resistance. ID recommended to transition cefepime 1g IV q6h to Bactrim DS 1 tab po bid through 11/24.
Neurology was consulted due to history of recent craniotomy due to glioblastoma. Neurology did not have recommendations to offer. Patient failed trial of timed voiding and a Diaz catheter was placed on 11/15/2024.
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
Procedure History:�Left hand surgery, loop recorder, glioblastoma s/p craniotomy�10/08/2024
Family History:��������(Dad- CVA per medical records. Unable to obtain detail history due to patient's aphasia)
�
Social History:��
Functional Level Premorbidly:�Independent with all activities��
Functional Level at Previous Facility: Bed mobility�supervision, sit to stand, stand to sit transfer�max assist for weight shifting and balance due to unsteadiness, ambulated 10 feet with rolling walker within room, max assist�dependent due to
severe scissoring, flexion/adduction tone, weakness, toileting�max assist, eating supervision, upper extremity self-care�min assist, lower extremity self-care�mod assist,
�
Tobacco:�Denies all��
Alcohol:�Occasional
Drug use:�Denies��
�
Lives With:�Family
24-hour assistance available:��yes
Number of floors:2��
# steps to enter:��0
# steps to second floor:��unable to ascertain from patient
Potential First Floor Set Up:��yes
Driving:�unable to ascertain from patient
Occupation:��unable to ascertain from patient.
�
Allergies:��
Allergy/AdvReac Type Severity Reaction Status Date / Time
No Known Allergies Allergy Verified 03/24/23 08:35
Review of Systems:��Limited with aphasia
Constitutional: (x) Normal _
Eye: (x) Normal _
Ear/Nose/Throat: (x) Normal _
Respiratory: (x) Normal _
Cardiovascular: (x) Normal _
Gastrointestinal: (x) Normal _
Genitourinary: (x) abNormal _uti, urine retention
Musculoskeletal: (x) abNormal _brain tumor
Integumentary: (x)ab Normal _sacral, buttock skin maceration,
Neurologic: (x) abNormal _old CVA, receptive, expressive Aphasia<
Psychiatric: (x) Normal _
Endocrine: (x) Normal _
Hematologic/Lymphatic: (x) Normal _
Allergic/Immunologic: (x) Normal _
�
Medications:�
Active Current Visit Medication List
Category Date Time Status
Acetaminophen [Tylenol] Med 11/11/24 21:22 Active
650 mg PO Q4HPRN PRN
Apixaban [Eliquis] Med 11/12/24 08:00 Active
5 mg PO BID
Bisacodyl [Dulcolax] Med 11/11/24 21:22 Active
10 mg RECTAL DAILYPRN PRN
Clotrimazole [Lotrimin 1% Cream] Med 11/12/24 08:00 Active
See Dose Instructions TOPICAL BID
Dexamethasone [Decadron] Med 11/12/24 08:00 Active
2 mg PO BID
Dextrose 50%-Water [Dextrose 50% Syringe] Med 11/14/24 12:15 Active
12.5 grams IV [id number] PRN
Docusate Sodium [Colace] Med 11/12/24 08:00 Active
100 mg PO BID
Flush (0.9% Sodium Chloride) [Flush (Nss)] Med 11/11/24 22:00 Active
See Dose Instructions IV PER PROTOCOL
Gabapentin [Neurontin] Med 11/11/24 22:00 Active
100 mg PO HS
Glucagon [GlucaGen] Med 11/14/24 12:15 Active
1 mg IM PRN PRN
Insulin Aspart Corrective Mod [Novolog Flexpen-Moderate Med 11/14/24 16:30 Active
Resistance]
See Protocol SC AC
Insulin Glargine Lantus [Lantus] 14 units Med 11/11/24 22:00 Active
Subcutaneous Insulin Syringe [Syringe-Insulin] 0 unit
SC HS
Levetiracetam [Keppra] Med 11/12/24 08:00 Active
1,000 mg PO BID
Melatonin Med 11/11/24 22:00 Active
5 mg PO HS
Metoprolol Xl [Toprol Xl] Med 11/12/24 08:00 Active
12.5 mg PO DAILY
Miconazole Nitrate [Desenex/Mitrazol/Zeasorb] Med 11/12/24 08:00 Active
See Dose Instructions TOPICAL BID
Midodrine [ProAmatine] Med 11/12/24 08:00 Active
10 mg PO TID @ 0800,1200,1700
Pantoprazole [Protonix] Med 11/12/24 08:00 Active
40 mg PO DAILY
Rosuvastatin Calcium [Crestor] Med 11/12/24 18:00 Active
20 mg PO QPM
Sennosides [Senokot] Med 11/12/24 08:00 Active
17.2 mg PO DAILY
Sulfamethox./Trimethoprim Ds [Bactrim Ds 800 mg/160 mg] Med 11/14/24 12:00 Active
1 tablet PO BID
Zinc Oxide 20% [Zinc Oxide Ointment] Med 11/11/24 22:00 Active
See Dose Instructions TOPICAL TID
Vitals:��
Temp Pulse Resp BP Pulse Ox
97.7 F 65 18 118/60 100
11/16/24 07:41 11/16/24 12:43 11/16/24 07:41 11/16/24 12:43 11/16/24 08:15
Height 5 ft 7 in
Actual Weight 67.217 kg
Body Mass Index (BMI) 23.2
Physical Exam:��
General Appearance/Observation: Well-developed, well-nourished male in no apparent distress.��
Pain/Comfort Assessment: Denies��
Mood/Affect: confused, calm
�
Integumentary/Operative Site:�Healing scar across front scalp
�� Pressure Ulcer evaluation: absent over heels��
��
�� Other Type of Wound: MASD-Dry, scaling, red skin - sacrum, buttocks�
��
�
Eyes: Conjunctiva/Lids: normal���� Pupils: pupils equal round and reactive to light and Accommodation��
Ears/Nose/Throat: oral mucosa moist,� throat clear.�������������Lips/Teeth/Gums: normal��
Neck: No muscle spasm or tenderness��
Cardiovascular: Heart: regular, no murmur��
Pulses: dorsalis pedis 2+ bilaterally��
Respiratory: Respiratory Effort/Chest Expansion: normal.�������Auscultation: Clear to auscultation bilaterally��
Gastrointestinal: abdomen not tender, no distension, normal abdominal bowel sounds
Genitourinary: Diaz��
Extremities:�Edema: None�Cyanosis: None�Trophic�changes: None
�Feet - high arches, big toes in flexed position
Neurology Exam:
Orientation: orientated to self, not to place or time, knows that he is and 's name is Jennifer
Memory: impaired
Comprehension: impaired, slow to answer
Two step command: impaired
Naming: impaired. expressive and receptive aphasia,
Cranial Nerves:
�� CNII:�Pupillary light reflex: Intact����Visual Field:NT
�� CN III, IV, : Extraocular muscles: Intact��
�� CN V:�Facial Sensation�at�Forehead: Intact ,�Maxilla: Intact,�Mandible: Intact
�� CN VII:�Facial movement: Symmetric
�� CN VIII:�Hearing: Normal
�� CN IX/X:�Speech & swallow: low volume, receptive/expressive aphasia�position of Uvula: Midline
�� CN XI:�Shoulder shrug: not following command
�� CN XII:�Tongue protrusion: not following command
Sensory:
�� Light touch: Difficult to ascertain due to aphasia
��
�
Reflexes:
�� Biceps: absent bilaterally
�� Brachioradialis: absent bilaterally
�� Triceps: absent bilaterally
�� Patellar: 2+ bilaterally
�� Achilles:absent bilaterally
�� Babinski: no response
�� Clonus: NT
�� Abdiel: Negative bilaterally��
Cerebellar: Dysmetria/Ataxia: does not initiate command
Musculoskeletal:
Motor: (Manual muscle scale 0-5)��
Muscle SA EF WE EE FF FA HF KE DF EHL PF
Right� nt 5 nt 5 5 4 5 5 5 5 4
Left nt 5 nt 4 5 4 5 5 5 5 4
Tone: Normal in all extremities��
Range of Motion: Passively within normal limits in all extremities�
Lab Results:�
Labs
WBC 10.3 10^3/uL (4.8-10.8) 11/15/24 05:53
RBC 4.30 10^6/uL (4.70-6.10) L 11/15/24 05:53
Hgb 12.9 g/dL (13.0-18.0) L 11/15/24 05:53
Hct 38.0 % (39.0-52.0) L 11/15/24 05:53
MCV 88.4 fL (80.0-94.0) 11/15/24 05:53
MCH 30.0 pg (27.0-31.0) 11/15/24 05:53
MCHC 33.9 g/dL (33.0-37.0) 11/15/24 05:53
RDW 13.1 % (11.5-14.5) 11/15/24 05:53
Plt Count 280 10^3/uL (130-400) 11/15/24 05:53
MPV 10.4 fL (7.4-10.4) 11/15/24 05:53
Abs Immat Gran (auto) 0.1 10^3/uL (0-0.05) H 11/12/24 06:13
Absolute Neuts (auto) 9.0 10^3/uL (1.4-6.5) H 11/12/24 06:13
Absolute Lymphs (auto) 0.9 10^3/uL (1.2-3.4) L 11/12/24 06:13
Absolute Monos (auto) 1.1 10^3/uL (0.1-0.6) H 11/12/24 06:13
Absolute Eos (auto) 0.0 10^3/uL (0-0.7) 11/12/24 06:13
Absolute Basos (auto) 0.1 10^3/uL (0-0.2) 11/12/24 06:13
Immature Gran % 0.8 % (0-0.5) H 11/12/24 06:13
Neutrophils % 80.7 % (42.2-75.2) H 11/12/24 06:13
Lymphocytes % 8.2 % (20.5-51.1) L 11/12/24 06:13
Monocytes % 9.8 % (1.7-9.3) H 11/12/24 06:13
Eosinophils % 0.0 % (0-6) 11/12/24 06:13
Basophils % 0.5 % (0-2) 11/12/24 06:13
Nucleated RBC % 0 % (-) 11/12/24 06:13
Sodium 136 mmol/L (135-145) 11/15/24 05:53
Potassium 4.7 mmol/L (3.5-5.1) 11/15/24 05:53
Chloride 97 mmol/L (98-107) L 11/15/24 05:53
Carbon Dioxide 31 mmol/L (22-30) H 11/15/24 05:53
BUN 24 mg/dl (9-20) H 11/15/24 05:53
Creatinine 0.9 mg/dL (0.7-1.3) 11/15/24 05:53
Estimated Creat Clear 77 ml/min 11/15/24 05:53
eGFR > 60.00 11/15/24 05:53
Glucose 210 mg/dl (70-99) H 11/15/24 05:53
Hemoglobin A1c 7.1 % (4.0-5.6) H 11/12/24 06:13
Lactic Acid 1.4 mmol/L (0.7-2.0) 11/11/24 18:24
Calcium 9.4 mg/dl (8.4-10.2) 11/15/24 05:53
Total Bilirubin 0.6 mg/dl (0.2-1.3) 11/12/24 06:12
AST 21 U/L (17-59) 11/12/24 06:12
ALT 57 U/L (0-50) H 11/12/24 06:12
Alkaline Phosphatase 51 U/L (38-126) 11/12/24 06:12
Troponin I < 0.012 ng/ml 11/11/24 18:24
Total Protein 5.8 g/dl (6.3-8.2) L 11/12/24 06:12
Albumin 3.6 g/dl (3.5-5.0) 11/12/24 06:12
Urine Color Straw 11/11/24 19:39
Urine Clarity Cloudy (Clear) 11/11/24 19:39
Urine pH 5.0 (5.0-9.0) 11/11/24 19:39
Ur Specific [place] 1.010 (<1.030) 11/11/24 19:39
Urine Ketones Negative (Negative) 11/11/24 19:39
Ur Occult Blood Reflex 4+ (Negative) A 11/11/24 19:39
Urine Nitrite (Reflex) Negative (Negative) 11/11/24 19:39
Urine Bilirubin Negative (Negative) 11/11/24 19:39
Urine Urobilinogen Negative (Neg - 1+) 11/11/24 19:39
Leukocyte Esterase Rfl 3+ (Negative) A 11/11/24 19:39
Urine RBC /HPF (0-2) 11/11/24 19:39
Urine WBC (Reflex) >100 /HPF (0-5) A 11/11/24 19:39
Ur Squamous Epith Cells 0-2 /LPF (Few) 11/11/24 19:39
Urine Glucose 2+ (Negative) A 11/11/24 19:39
Urine Albumin (Reflex) 3+ (Neg - Trace) A 11/11/24 19:39
SARS-CoV-2 Antigen Negative (Negative) 11/11/24 18:24
POC Glucose 279 mg/dl (70-99) H 11/16/24 12:31
Diagnostic Results: As per HPI�
CT abdomen pelvis showed:
Severe distention of the bladder to the level of the umbilicus. New
Mild bilateral, right greater than left, hydronephrosis and moderate right hydroureter. No obstructing mass nor stone identified on the unenhanced scan. Progressed on the right. New on the left.
Tiny nonobstructing bilateral renal stones. Grossly stable
Mild prostate hypertrophy. New
Moderate fecal material in the region of the rectum concerning for fecal impaction. Associated mild rectal wall thickening. Possible early stercoral colitis.
�Assessment:
63 year old male with PMH of ( [id number] diabetes melitis, CVA, gout, kidney stones) s/p left sided craniotomy with tumor resection by Dr. Roberto on 10/08/24 for Glioblastoma. Admitted with UTI sepsis secondary to urinary retention.
�
Plan�
PM&R: Acute inpatient rehab with PT/OT/SW/RN/psychology to increase independence with ADLs, improve balance, coordination, endurance, strength, mobility, community reintegration, decreased burden of care on others and family education.
Debility: PT/OT
Complicated UTI due to severe urinary retention: Enterobacter mindy bacteremia x 2 sets. Per ID: Enterobacter cloacae -high risk for inducible Amp-C resistance. Cont Bactrim DS 1 tab p.o. twice daily through 11/24
Acute metabolic encephalopathy, secondary to sepsis-Improving
- Neurology was contacted by the admitting team since patient has recent craniotomy who did not have any further recommendations
Brain Tumor/glioblastoma:��S/P left craniotomy with tumor resectioning by Dr. Roberto on 10/08/24. Decadron 2 mg twice daily until seen by neurosurgeon.
Receptive/expressive aphasia: Speech
Seizure prophylaxis: EEG- negative. Keppra 1000 twice daily
Orthostatic hypotension: Midodrine 10 mg 3 times daily at 0800, 1200, 1700
H/O CVA: old left infarct. Eliquis 5mg twice daily (SBP less than 180 and diastolic less than 100 to participate with therapy for ischemic stroke). Continue to monitor neurologic status.
A-fib: Eliquis 5 mg twice daily, metoprolol XL 25 daily
HTN: Metoprolol XL 25 daily monitor closely��
HLD: Rosuvastatin 20 mg every afternoon
CKD3: improved -bun 24/0.9
DM II: Accu-Cheks, insulin sliding scale, insulin glargine 14 units every afternoon
Anemia: Likely multifactorial.� Continue to monitor.��
Psych: Psychology consult.� Monitor mood, adjust medications as needed.��
Skin/MASD/sacrum: Roho cushion, weight shift q 2 hours, miconazole nitrate topical bid. Zinc oxide, monitor for pressure sores/rashes/lesions.��
FEN:�Regular diet.�
h/o Gout: monitor.
Pain: acetaminophen as needed, gabapentin 100 at bedtime
Bowel: Colace and Senna, PRN bisacodyl.��
Bladder/Urinary retention/Hydronephrosis: Time void, PVRs, PRN straight cath to be trialed.��Diaz placed on 11/15.
DVT Prophylaxis: Mechanical, Eliquis
Pulmonary: Incentive spirometry��
Safety: Continue to reinforce assistance with all transfers.��
Code Status:� Full code
Dispo�(date/plan/equipment needs): Home with family care.
Functional and Medical Goals:�Modified Independent with ADL�s, ambulation, transfers�
Discharge Destination:�Acute inpatient rehabilitation�
���

Documented by User: Damien Hanson MD 11/16/24 19:45
Consultation - Medical
-
Referring physician: Barber Suarez
Chief Complaint:�Brain tumor
�
History of Present Illness:��63 year old male with PMH of ( [id number]-[id number] diabetes melitis, CVA, gout, kidney stones, HTN, glioblastoma s/p craniotomy on 2024, orthostatic hypotension, urine incontinence, CKD3 ) presented to [place]
ED on 11/12/2024 from [facility] for evaluation of episodes of significant shaking, tremors, elevated white blood cells and a temp of 100.1. Chest x-ray done in the ED showed basilar atelectasis. CT of the abdomen pelvis showed severe bladder
distention to the level of the umbilicus with right greater than left hydronephrosis. Diaz was placed and IV antibiotics started. Admission blood cultures were positive. Admitted with complicated UTI due to severe urinary retention.
Enterobacter mindy bacteremia x 2 sets from urine source. Urine culture showed mixed martha. Enterobacter cloacae -high risk for inducible Amp-C resistance. ID recommended to transition cefepime 1g IV q6h to Bactrim DS 1 tab po bid through 11/24.
Neurology was consulted due to history of recent craniotomy due to glioblastoma. Neurology did not have recommendations to offer. Patient failed trial of timed voiding and a Diaz catheter was placed on 11/15/2024.
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
Procedure History:�Left hand surgery, loop recorder, glioblastoma s/p craniotomy�10/08/2024
Family History:��������(Dad- CVA per medical records. Unable to obtain detail history due to patient's aphasia)
�
Social History:��
Functional Level Premorbidly:�Independent with all activities��
Functional Level at Previous Facility: Bed mobility�supervision, sit to stand, stand to sit transfer�max assist for weight shifting and balance due to unsteadiness, ambulated 10 feet with rolling walker within room, max assist�dependent due to
severe scissoring, flexion/adduction tone, weakness, toileting�max assist, eating supervision, upper extremity self-care�min assist, lower extremity self-care�mod assist,
�
Tobacco:�Denies all��
Alcohol:�Occasional
Drug use:�Denies��
�
Lives With:�Family
24-hour assistance available:��yes
Number of floors:2��
# steps to enter:��0
# steps to second floor:��unable to ascertain from patient
Potential First Floor Set Up:��yes
Driving:�unable to ascertain from patient
Occupation:��unable to ascertain from patient.
�
Allergies:��
Allergy/AdvReac Type Severity Reaction Status Date / Time
No Known Allergies Allergy Verified 03/24/23 08:35
Review of Systems:��Limited with aphasia
Constitutional: (x) Normal _
Eye: (x) Normal _
Ear/Nose/Throat: (x) Normal _
Respiratory: (x) Normal _
Cardiovascular: (x) Normal _
Gastrointestinal: (x) Normal _
Genitourinary: (x) abNormal _uti, urine retention
Musculoskeletal: (x) abNormal _brain tumor
Integumentary: (x)ab Normal _sacral, buttock skin maceration,
Neurologic: (x) abNormal _old CVA, receptive, expressive Aphasia<
Psychiatric: (x) Normal _
Endocrine: (x) Normal _
Hematologic/Lymphatic: (x) Normal _
Allergic/Immunologic: (x) Normal _
�
Medications:�
Active Current Visit Medication List
Category Date Time Status
Acetaminophen [Tylenol] Med 11/11/24 21:22 Active
650 mg PO Q4HPRN PRN
Apixaban [Eliquis] Med 11/12/24 08:00 Active
5 mg PO BID
Bisacodyl [Dulcolax] Med 11/11/24 21:22 Active
10 mg RECTAL DAILYPRN PRN
Clotrimazole [Lotrimin 1% Cream] Med 11/12/24 08:00 Active
See Dose Instructions TOPICAL BID
Dexamethasone [Decadron] Med 11/12/24 08:00 Active
2 mg PO BID
Dextrose 50%-Water [Dextrose 50% Syringe] Med 11/14/24 12:15 Active
12.5 grams IV [id number] PRN
Docusate Sodium [Colace] Med 11/12/24 08:00 Active
100 mg PO BID
Flush (0.9% Sodium Chloride) [Flush (Nss)] Med 11/11/24 22:00 Active
See Dose Instructions IV PER PROTOCOL
Gabapentin [Neurontin] Med 11/11/24 22:00 Active
100 mg PO HS
Glucagon [GlucaGen] Med 11/14/24 12:15 Active
1 mg IM PRN PRN
Insulin Aspart Corrective Mod [Novolog Flexpen-Moderate Med 11/14/24 16:30 Active
Resistance]
See Protocol SC AC
Insulin Glargine Lantus [Lantus] 14 units Med 11/11/24 22:00 Active
Subcutaneous Insulin Syringe [Syringe-Insulin] 0 unit
SC HS
Levetiracetam [Keppra] Med 11/12/24 08:00 Active
1,000 mg PO BID
Melatonin Med 11/11/24 22:00 Active
5 mg PO HS
Metoprolol Xl [Toprol Xl] Med 11/12/24 08:00 Active
12.5 mg PO DAILY
Miconazole Nitrate [Desenex/Mitrazol/Zeasorb] Med 11/12/24 08:00 Active
See Dose Instructions TOPICAL BID
Midodrine [ProAmatine] Med 11/12/24 08:00 Active
10 mg PO TID @ 0800,1200,1700
Pantoprazole [Protonix] Med 11/12/24 08:00 Active
40 mg PO DAILY
Rosuvastatin Calcium [Crestor] Med 11/12/24 18:00 Active
20 mg PO QPM
Sennosides [Senokot] Med 11/12/24 08:00 Active
17.2 mg PO DAILY
Sulfamethox./Trimethoprim Ds [Bactrim Ds 800 mg/160 mg] Med 11/14/24 12:00 Active
1 tablet PO BID
Zinc Oxide 20% [Zinc Oxide Ointment] Med 11/11/24 22:00 Active
See Dose Instructions TOPICAL TID
Vitals:��
Temp Pulse Resp BP Pulse Ox
97.7 F 65 18 118/60 100
11/16/24 07:41 11/16/24 12:43 11/16/24 07:41 11/16/24 12:43 11/16/24 08:15
Height 5 ft 7 in
Actual Weight 67.217 kg
Body Mass Index (BMI) 23.2
Physical Exam:��
General Appearance/Observation: Well-developed, well-nourished male in no apparent distress.��
Pain/Comfort Assessment: Denies��
Mood/Affect: confused, calm
�
Integumentary/Operative Site:�Healing scar across front scalp
�� Pressure Ulcer evaluation: absent over heels��
��
�� Other Type of Wound: MASD-Dry, scaling, red skin - sacrum, buttocks�
��
�
Eyes: Conjunctiva/Lids: normal���� Pupils: pupils equal round and reactive to light and Accommodation��
Ears/Nose/Throat: oral mucosa moist,� throat clear.�������������Lips/Teeth/Gums: normal��
Neck: No muscle spasm or tenderness��
Cardiovascular: Heart: regular, no murmur��
Pulses: dorsalis pedis 2+ bilaterally��
Respiratory: Respiratory Effort/Chest Expansion: normal.�������Auscultation: Clear to auscultation bilaterally��
Gastrointestinal: abdomen not tender, no distension, normal abdominal bowel sounds
Genitourinary: Diaz��
Extremities:�Edema: None�Cyanosis: None�Trophic�changes: None
�Feet - high arches, big toes in flexed position
Neurology Exam:
Orientation: orientated to self, not to place or time, knows that he is and 's name is Jennifer
Memory: impaired
Comprehension: impaired, slow to answer
Two step command: impaired
Naming: impaired. expressive and receptive aphasia,
Cranial Nerves:
�� CNII:�Pupillary light reflex: Intact����Visual Field:NT
�� CN III, IV, : Extraocular muscles: Intact��
�� CN V:�Facial Sensation�at�Forehead: Intact ,�Maxilla: Intact,�Mandible: Intact
�� CN VII:�Facial movement: Symmetric
�� CN VIII:�Hearing: Normal
�� CN IX/X:�Speech & swallow: low volume, receptive/expressive aphasia�position of Uvula: Midline
�� CN XI:�Shoulder shrug: not following command
�� CN XII:�Tongue protrusion: not following command
Sensory:
�� Light touch: Difficult to ascertain due to aphasia
��
�
Reflexes:
�� Biceps: absent bilaterally
�� Brachioradialis: absent bilaterally
�� Triceps: absent bilaterally
�� Patellar: 2+ bilaterally
�� Achilles:absent bilaterally
�� Babinski: no response
�� Clonus: NT
�� Abdiel: Negative bilaterally��
Cerebellar: Dysmetria/Ataxia: does not initiate command
Musculoskeletal:
Motor: (Manual muscle scale 0-5)��
Muscle SA EF WE EE FF FA HF KE DF EHL PF
Right� nt 5 nt 5 5 4 5 5 5 5 4
Left nt 5 nt 4 5 4 5 5 5 5 4
Tone: Normal in all extremities��
Range of Motion: Passively within normal limits in all extremities�
Lab Results:�
Labs
WBC 10.3 10^3/uL (4.8-10.8) 11/15/24 05:53
RBC 4.30 10^6/uL (4.70-6.10) L 11/15/24 05:53
Hgb 12.9 g/dL (13.0-18.0) L 11/15/24 05:53
Hct 38.0 % (39.0-52.0) L 11/15/24 05:53
MCV 88.4 fL (80.0-94.0) 11/15/24 05:53
MCH 30.0 pg (27.0-31.0) 11/15/24 05:53
MCHC 33.9 g/dL (33.0-37.0) 11/15/24 05:53
RDW 13.1 % (11.5-14.5) 11/15/24 05:53
Plt Count 280 10^3/uL (130-400) 11/15/24 05:53
MPV 10.4 fL (7.4-10.4) 11/15/24 05:53
Abs Immat Gran (auto) 0.1 10^3/uL (0-0.05) H 05/16/25 06:13
Absolute Neuts (auto) 9.0 10^3/uL (1.4-6.5) H 11/12/24 06:13
Absolute Lymphs (auto) 0.9 10^3/uL (1.2-3.4) L 11/12/24 06:13
Absolute Monos (auto) 1.1 10^3/uL (0.1-0.6) H 11/12/24 06:13
Absolute Eos (auto) 0.0 10^3/uL (0-0.7) 11/12/24 06:13
Absolute Basos (auto) 0.1 10^3/uL (0-0.2) 11/12/24 06:13
Immature Gran % 0.8 % (0-0.5) H 11/12/24 06:13
Neutrophils % 80.7 % (42.2-75.2) H 11/12/24 06:13
Lymphocytes % 8.2 % (20.5-51.1) L 11/12/24 06:13
Monocytes % 9.8 % (1.7-9.3) H 11/12/24 06:13
Eosinophils % 0.0 % (0-6) 11/12/24 06:13
Basophils % 0.5 % (0-2) 11/12/24 06:13
Nucleated RBC % 0 % (-) 11/12/24 06:13
Sodium 136 mmol/L (135-145) 11/15/24 05:53
Potassium 4.7 mmol/L (3.5-5.1) 11/15/24 05:53
Chloride 97 mmol/L (98-107) L 11/15/24 05:53
Carbon Dioxide 31 mmol/L (22-30) H 11/15/24 05:53
BUN 24 mg/dl (9-20) H 11/15/24 05:53
Creatinine 0.9 mg/dL (0.7-1.3) 11/15/24 05:53
Estimated Creat Clear 77 ml/min 11/15/24 05:53
eGFR > 60.00 11/15/24 05:53
Glucose 210 mg/dl (70-99) H 11/15/24 05:53
Hemoglobin A1c 7.1 % (4.0-5.6) H 11/12/24 06:13
Lactic Acid 1.4 mmol/L (0.7-2.0) 11/11/24 18:24
Calcium 9.4 mg/dl (8.4-10.2) 11/15/24 05:53
Total Bilirubin 0.6 mg/dl (0.2-1.3) 11/12/24 06:12
AST 21 U/L (17-59) 11/12/24 06:12
ALT 57 U/L (0-50) H 11/12/24 06:12
Alkaline Phosphatase 51 U/L (38-126) 11/12/24 06:12
Troponin I < 0.012 ng/ml 11/11/24 18:24
Total Protein 5.8 g/dl (6.3-8.2) L 11/12/24 06:12
Albumin 3.6 g/dl (3.5-5.0) 11/12/24 06:12
Urine Color Straw 11/11/24 19:39
Urine Clarity Cloudy (Clear) 11/11/24 19:39
Urine pH 5.0 (5.0-9.0) 11/11/24 19:39
Ur Specific [place] 1.010 (<1.030) 11/11/24 19:39
Urine Ketones Negative (Negative) 11/11/24 19:39
Ur Occult Blood Reflex 4+ (Negative) A 11/11/24 19:39
Urine Nitrite (Reflex) Negative (Negative) 11/11/24 19:39
Urine Bilirubin Negative (Negative) 11/11/24 19:39
Urine Urobilinogen Negative (Neg - 1+) 11/11/24 19:39
Leukocyte Esterase Rfl 3+ (Negative) A 11/11/24 19:39
Urine RBC /HPF (0-2) 11/11/24 19:39
Urine WBC (Reflex) >100 /HPF (0-5) A 11/11/24 19:39
Ur Squamous Epith Cells 0-2 /LPF (Few) 11/11/24 19:39
Urine Glucose 2+ (Negative) A 11/11/24 19:39
Urine Albumin (Reflex) 3+ (Neg - Trace) A 11/11/24 19:39
SARS-CoV-2 Antigen Negative (Negative) 11/11/24 18:24
POC Glucose 279 mg/dl (70-99) H 11/16/24 12:31
Diagnostic Results: As per HPI�
CT abdomen pelvis showed:
Severe distention of the bladder to the level of the umbilicus. New
Mild bilateral, right greater than left, hydronephrosis and moderate right hydroureter. No obstructing mass nor stone identified on the unenhanced scan. Progressed on the right. New on the left.
Tiny nonobstructing bilateral renal stones. Grossly stable
Mild prostate hypertrophy. New
Moderate fecal material in the region of the rectum concerning for fecal impaction. Associated mild rectal wall thickening. Possible early stercoral colitis.
�Assessment:
63 year old male with PMH of ( xjb-bldvjoq-lzvynoqut diabetes melitis, CVA, gout, kidney stones) s/p left sided craniotomy with tumor resection by Dr. Roberto on 10/08/24 for Glioblastoma. Admitted with UTI sepsis secondary to urinary retention.
�
Plan�
PM&R: Acute inpatient rehab with PT/OT/SW/RN/psychology to increase independence with ADLs, improve balance, coordination, endurance, strength, mobility, community reintegration, decreased burden of care on others and family education.
Debility: PT/OT
Complicated UTI due to severe urinary retention: Enterobacter mindy bacteremia x 2 sets. Per ID: Enterobacter cloacae -high risk for inducible Amp-C resistance. Cont Bactrim DS 1 tab p.o. twice daily through 11/24
Acute metabolic encephalopathy, secondary to sepsis-Improving
- Neurology was contacted by the admitting team since patient has recent craniotomy who did not have any further recommendations
Brain Tumor/glioblastoma:��S/P left craniotomy with tumor resectioning by Dr. Roberto on 10/08/24. Decadron 2 mg twice daily until seen by neurosurgeon.
Receptive/expressive aphasia: Speech
Seizure prophylaxis: EEG- negative. Keppra 1000 twice daily
Orthostatic hypotension: Midodrine 10 mg 3 times daily at 0800, 1200, 1700
H/O CVA: old left infarct. Eliquis 5mg twice daily (SBP less than 180 and diastolic less than 100 to participate with therapy for ischemic stroke). Continue to monitor neurologic status.
A-fib: Eliquis 5 mg twice daily, metoprolol XL 25 daily
HTN: Metoprolol XL 25 daily monitor closely��
HLD: Rosuvastatin 20 mg every afternoon
CKD3: improved -bun 24/0.9
DM II: Accu-Cheks, insulin sliding scale, insulin glargine 14 units every afternoon
Anemia: Likely multifactorial.� Continue to monitor.��
Psych: Psychology consult.� Monitor mood, adjust medications as needed.��
Skin/MASD/sacrum: Roho cushion, weight shift q 2 hours, miconazole nitrate topical bid. Zinc oxide, monitor for pressure sores/rashes/lesions.��
FEN:�Regular diet.�
h/o Gout: monitor.
Pain: acetaminophen as needed, gabapentin 100 at bedtime
Bowel: Colace and Senna, PRN bisacodyl.��
Bladder/Urinary retention/Hydronephrosis: Time void, PVRs, PRN straight cath to be trialed.��Diaz placed on 11/15.
DVT Prophylaxis: Mechanical, Eliquis
Pulmonary: Incentive spirometry��
Safety: Continue to reinforce assistance with all transfers.��
Code Status:� Full code
Dispo�(date/plan/equipment needs): Home with family care.
Functional and Medical Goals:�Modified Independent with ADL�s, ambulation, transfers�
Discharge Destination:�Acute inpatient rehabilitation�
Attending Statement:
I saw and examined the patient today. Reviewed care plan with patient, therapy, nursing, and physician funeral director's assistant. I agree with the above subjective and physical exam, and plan as documented by YENI Yang with adjustments made as necessary.
Awareness and interaction much better. Still with significant aphasia. Will benefit from more therapy in acute rehab.
���
--- NOTE | 2024-11-16 16:44 | W.PN.HOSP.TC ---
Today's Communication/Plan
-
Continue oral antibiotics per
Adjust insulin regimen with addition of AC NovoLog
Monitor oral intake
Follow BMP
Physiatry evaluation and hopefully placement to acute rehab
Assessment / Plan
Assessment / Plan
Impression:
64-year-old male past medical history of glioblastoma status post craniotomy on 10/08, diabetes, CVA, gout, atrial fibrillation on Eliquis, hypertension, orthostatic hypotension, hyperlipidemia, anemia, CKD 3, urinary incontinence, presenting with
shakiness and hiccups since yesterday. Patient had 1 episode of vomiting yesterday. Patient has tremor worse on the right side and fever of 100.1.
Admitted for sepsis secondary to UTI.
Blood culture came back positive, and infectious is consulted
Final blood culture back positive for Enterobacter Colace sensitive to Bactrim.
Infectious is recommending to transition cefepime 1g IV q6h to Bactrim DS 1 tab po bid through 11/24.
Assessment/plan:
Severe sepsis with acute organ dysfunction
Severe sepsis secondary to UTI.
Acute organ dysfunction in form of acute metabolic encephalopathy
Patient meets sepsis criteria on admission
Heart rate 100
WBCs 14
Source of infection is UTI
IV fluid
IV antibiotic in form of Rocephin
Blood culture 2/2 positive for gram negative bacilli, pending sensitive
Urine culture pending
Consulted infectious disease
CT abdomen pelvis showed:
Severe distention of the bladder to the level of the umbilicus. New
Mild bilateral, right greater than left, hydronephrosis and moderate right hydroureter. No obstructing mass nor stone identified on the unenhanced scan. Progressed on the right. New on the left.
Tiny nonobstructing bilateral renal stones. Grossly stable
Mild prostate hypertrophy. New
Moderate fecal material in the region of the rectum concerning for fecal impaction. Associated mild rectal wall thickening. Possible early stercoral colitis.
11/14
transition cefepime 1g IV q6h to Bactrim DS 1 tab po bid through 11/24.
Acute metabolic encephalopathy, secondary to sepsis
Improving
- Neurology was contacted by the admitting team since patient has recent craniotomy who did not have any further recommendations
Glioblastoma status post craniotomy on 10/08
- Continue Keppra for seizure prophylaxis
- Continue dexamethasone, currently on 2 mg twice daily, until follow-up with neurosurgery as OP.
Acute Urinary retention
CT abdomen pelvis showed:
Severe distention of the bladder to the level of the umbilicus.
Initiated on Flomax
Failed voiding trial with Diaz catheter inserted on 11/15.
Hyperglycemia secondary to infection/steroids
Type 2 diabetes
- Continue Lantus 14 units
-Add AC aspart 3 units
- Insulin sliding scale
Hemoglobin A1c 7.1
History of CVA
Continue Eliquis/statin
Gout
- Continue gabapentin
Paroxysmal atrial fibrillation
- Currently in sinus rhythm.
- Continue metoprolol
- Continue Eliquis
Essential hypertension
Continue metoprolol
Orthostatic hypotension
- Continue midodrine
Hyperlipidemia
- Continue statin
Chronic anemia
- Hemoglobin stable
CODE STATUS: Full code
DVT prophylaxis: Eliquis
Diet: Diabetic
Disposition: Pending physical therapy evaluation to determine discharge plan,
Anticipated Discharge: Within 24 hours
Subjective/Interval History
-
Date of Service: November 16, 2024
Objective Data
-
Vital Signs:
Vital Signs
Temp Pulse Resp BP Pulse Ox
97.9 F 69 18 105/60 97
11/16/24 15:25 11/16/24 15:25 11/16/24 15:25 11/16/24 15:25 11/16/24 15:25
I&O
11/15/24 11/16/24 11/17/24
06:59 06:59 06:59
Intake Total 300 / 300
Output Total 3525 / 3525 1250 / 1250
Balance -3225 / -3225 -1250 / -1250
Physical Exam
-
General: Well Developed, Well Nourished, No Apparent Distress and Comfortable
HEENT: Normocephalic (Scalp jose/ wound is clean with no sign of bleeding breath), Atraumatic, No Ptosis, PERRLA and Nose Appears Normal
Respiratory: Clear to Auscultation and Non Labored Respirations
Cardiac: Regular Rhythm and S1/S2
Breast: Deferred by me
GI: Soft, Nontender, Nondistended and Normal Bowel Sounds
Genito-urinary: No Costovertebral Tender
Musculoskeletal: No Clubbing, No Cyanosis and No Edema
Skin: Warm
Neuro: Awake, Alert and No Motor Deficits
Psych: Calm
[2024-11-16 16:59] LABS: Glucose - Point of Care 357 mg/dl (70-99)
[2024-11-16] MEDS: NOVOLOG FLEXPEN 3 UNITS SC (17:30)
[2024-11-16] MEDS: CRESTOR 20 MG PO (17:30)
[2024-11-16] MEDS: NOVOLOG FLEXPEN-MODERATE RESISTANCE 9 UNITS SC (17:31)
[2024-11-16 21:09] LABS: Glucose - Point of Care 245 mg/dl (70-99)
[2024-11-16] MEDS: NEURONTIN 100 MG PO (21:36)
[2024-11-16] MEDS: MELATONIN 5 MG PO (21:36)
[2024-11-16] MEDS: LANTUS 0.14 UNITS SC (21:37)
[2024-11-16 23:35] VITALS: BP 143/80
[2024-11-17 07:45] LABS: Blood Urea Nitrogen 36 mg/dl (9-20); Calcium 9.5 mg/dl (8.4-10.2); Carbon Dioxide 30 mmol/L (22-30); Chloride 97 mmol/L (98-107); Estimated Creatinine Clearance 63 ml/min; Glucose 239 mg/dl (70-99); Potassium 5.1 mmol/L (3.5-5.1); Sodium 135 mmol/L (135-145); eGFR > 60.00
[2024-11-17 07:53] LABS: Glucose - Point of Care 224 mg/dl (70-99)
[2024-11-17 07:56] VITALS: BP 123/69
[2024-11-17] MEDS: NOVOLOG FLEXPEN-MODERATE RESISTANCE 3 UNITS SC ×2 (08:36→17:09)
[2024-11-17] MEDS: NOVOLOG FLEXPEN 3 UNITS SC ×3 (08:36→17:09)
[2024-11-17] MEDS: SENOKOT 17.2 MG PO (08:37)
[2024-11-17] MEDS: PROTONIX 40 MG PO (08:37)
[2024-11-17] MEDS: DECADRON 2 MG PO ×2 (08:37→20:37)
[2024-11-17] MEDS: TOPROL XL 12.5 MG PO (08:37)
[2024-11-17] MEDS: BACTRIM DS 800 MG/160 MG 1 TABLET PO ×2 (08:37→20:37)
[2024-11-17] MEDS: KEPPRA 1000 MG PO ×2 (08:37→20:38)
[2024-11-17] MEDS: ELIQUIS 5 MG PO ×2 (08:37→20:37)
[2024-11-17] MEDS: ZINC OXIDE OINTMENT 1 APPLIC TOPICAL ×3 (08:38→20:49)
[2024-11-17] MEDS: COLACE 100 MG PO ×2 (08:38→20:38)
[2024-11-17] MEDS: ProAmatine 10 MG PO ×3 (08:38→17:08)
[2024-11-17] MEDS: DESENEX/MITRAZOL/ZEASORB 1 APPLIC TOPICAL ×2 (08:38→20:48)
[2024-11-17] MEDS: LOTRIMIN 1% CREAM 1 APPLIC TOPICAL ×2 (08:39→20:49)
[2024-11-17 11:57] LABS: Glucose - Point of Care 264 mg/dl (70-99)
[2024-11-17] MEDS: NOVOLOG FLEXPEN-MODERATE RESISTANCE 5 UNITS SC (12:00)
--- NOTE | 2024-11-17 13:39 | W.PN.ID1 ---
Date of Service
Date of Service: November 17, 2024
Today's Communication
Continue Bactrim DS 1 tab po bid through 11/23.
ID will sign off.
Assessment / Plan
# Complicated UTI due to severe urinary retention
# Enterobacter mindy bacteremia x 2 sets, urine source
# Leukocytosis - resolved
# Glioblastoma status post tumor resection October 08, 2024
- urine cx mixed martha.
- Enterobacter cloacae -high risk for inducible Amp-C resistance.
- Continue Bactrim DS 1 tab po bid through 11/23.
ID will sign off.
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
Recent diagnosis brain high-grade glioblastoma status post left-sided craniotomy, resection of tumor October 08, 2024 at [facility]
Expressive aphasia
Diabetes mellitus
CVA
CKD3
Afib on Eliquis
Orthostatic hypotension
HLD
Urine incontinence
Gout
Nephrolithiasis
Left hand surgery
Chief Complaint
-: UTI and Bacteremia
Subjective / Review of Systems
Feels well.
Vital Signs / Physical Exam
Vital Signs
Vital Signs
Temp Pulse Resp BP Pulse Ox
97.6 F 60 18 123/69 95
11/17/24 07:56 11/17/24 08:37 11/17/24 07:56 11/17/24 08:37 11/17/24 09:15
Physical Exam
Constitutional: Chronically Ill and Non-toxic
Cardiovascular: Regular Rate and S1/S2
Pulmonary: Clear
Gastrointestinal: Soft, Non Tender, Non Distended and Normal Bowel Sounds
Genito-Urinary: Negative Diaz or CVA Tenderness
Extremities: Negative Edema
Neurological: AO x 3
Objective Data
Lab Data
Lab Results
11/15/24 05:53
11/17/24 05:53
Estimated Creat Clear 63 ml/min 11/17/24 05:53
Lactic Acid 1.4 mmol/L (0.7-2.0) 11/11/24 18:24
Total Bilirubin 0.6 mg/dl (0.2-1.3) 11/12/24 06:12
AST 21 U/L (17-59) 11/12/24 06:12
ALT 57 U/L (0-50) H 11/12/24 06:12
Alkaline Phosphatase 51 U/L (38-126) 11/12/24 06:12
Most recent labs reviewed.
Micro Results:
11/11/24 19:39 Blood Culture - Preliminary
Blood/Venous Enterobacter cloacae
Gram Stain - Preliminary
11/11/24 19:39 Blood Culture - Preliminary
Blood/Venous Enterobacter cloacae
Gram Stain - Preliminary
11/11/24 19:39 Urine Culture - Final
Urine
11/11/24 18:24 Influenza Types A & B (GIRISH) - Final
Nasal Swab Negative for Influenza A & B, NAAT
Negative results must be combined with clinical observations
and patient history.
Nucleic Acid Amplification test (NAAT)performed on the
[employer] platform.
--- NOTE | 2024-11-17 14:59 | W.PN.HOSP.TC ---
Today's Communication/Plan
-
Continue oral antibiotics
Continue Diaz catheter for acute retention
Continue PT
Supportive care pain
Pending placement to acute rehab. Medically cleared.
Assessment / Plan
Assessment / Plan
Impression:
64-year-old male past medical history of glioblastoma status post craniotomy on 10/08, diabetes, CVA, gout, atrial fibrillation on Eliquis, hypertension, orthostatic hypotension, hyperlipidemia, anemia, CKD 3, urinary incontinence, presenting with
shakiness and hiccups since yesterday. Patient had 1 episode of vomiting yesterday. Patient has tremor worse on the right side and fever of 100.1.
Admitted for sepsis secondary to UTI.
Blood culture came back positive, and infectious is consulted
Final blood culture back positive for Enterobacter Colace sensitive to Bactrim.
Infectious is recommending to transition cefepime 1g IV q6h to Bactrim DS 1 tab po bid through 11/24.
Assessment/plan:
Severe sepsis with acute organ dysfunction
Severe sepsis secondary to UTI.
Acute organ dysfunction in form of acute metabolic encephalopathy
Patient meets sepsis criteria on admission
Heart rate 100
WBCs 14
Source of infection is UTI
IV fluid
IV antibiotic in form of Rocephin
Blood culture 2/2 positive for gram negative bacilli, pending sensitive
Urine culture pending
Consulted infectious disease
CT abdomen pelvis showed:
Severe distention of the bladder to the level of the umbilicus. New
Mild bilateral, right greater than left, hydronephrosis and moderate right hydroureter. No obstructing mass nor stone identified on the unenhanced scan. Progressed on the right. New on the left.
Tiny nonobstructing bilateral renal stones. Grossly stable
Mild prostate hypertrophy. New
Moderate fecal material in the region of the rectum concerning for fecal impaction. Associated mild rectal wall thickening. Possible early stercoral colitis.
11/14
transition cefepime 1g IV q6h to Bactrim DS 1 tab po bid through 11/24.
Acute metabolic encephalopathy, secondary to sepsis
Improving
- Neurology was contacted by the admitting team since patient has recent craniotomy who did not have any further recommendations
Glioblastoma status post craniotomy on 10/08
- Continue Keppra for seizure prophylaxis
- Continue dexamethasone, currently on 2 mg twice daily, until follow-up with neurosurgery as OP.
Acute Urinary retention
CT abdomen pelvis showed:
Severe distention of the bladder to the level of the umbilicus.
Initiated on Flomax
Failed voiding trial with Diaz catheter inserted on 11/15.
Hyperglycemia secondary to infection/steroids
Type 2 diabetes
- Continue Lantus 14 units
-Add AC aspart 3 units
- Insulin sliding scale
Hemoglobin A1c 7.1
History of CVA
Continue Eliquis/statin
Gout
- Continue gabapentin
Paroxysmal atrial fibrillation
- Currently in sinus rhythm.
- Continue metoprolol
- Continue Eliquis
Essential hypertension
Continue metoprolol
Orthostatic hypotension
- Continue midodrine
Hyperlipidemia
- Continue statin
Chronic anemia
- Hemoglobin stable
CODE STATUS: Full code
DVT prophylaxis: Eliquis
Diet: Diabetic
Disposition: Pending physical therapy evaluation to determine discharge plan,
Anticipated Discharge: Within 24 hours
Subjective/Interval History
-
Date of Service: November 17, 2024
Objective Data
-
Labs:
Laboratory Results
11/17/24
05:53
Sodium 135
Potassium 5.1
Chloride 97 L
Carbon Dioxide 30
BUN 36 H
Creatinine 1.1
Glucose 239 H
Calcium 9.5
Vital Signs:
Vital Signs
Temp Pulse Resp BP Pulse Ox
97.6 F 60 18 123/69 95
11/17/24 07:56 11/17/24 08:37 11/17/24 07:56 11/17/24 08:37 11/17/24 09:15
I&O
11/16/24 11/17/24 11/18/24
06:59 06:59 06:59
Intake Total 720 / 720
Output Total 1250 / 1250 1900 / 1900
Balance -1250 / -1250 -1180 / -1180
Physical Exam
-
General: Well Developed, Well Nourished, No Apparent Distress and Comfortable
HEENT: Normocephalic (Scalp jose/ wound is clean with no sign of bleeding breath), Atraumatic, No Ptosis, PERRLA and Nose Appears Normal
Respiratory: Clear to Auscultation and Non Labored Respirations
Cardiac: Regular Rhythm and S1/S2
Breast: Deferred by me
GI: Soft, Nontender, Nondistended and Normal Bowel Sounds
Genito-urinary: No Costovertebral Tender
Musculoskeletal: No Clubbing, No Cyanosis and No Edema
Skin: Warm
Neuro: Awake, Alert and No Motor Deficits
Psych: Calm
[2024-11-17 15:15] VITALS: BP 103/75
[2024-11-17 16:42] LABS: Glucose - Point of Care 249 mg/dl (70-99)
[2024-11-17] MEDS: CRESTOR 20 MG PO (17:09)
--- NOTE | 2024-11-17 17:23 | CM ---
PT indicates need for acute rehab.
Spoke with Chandrika [facility] bed available at [facility].
NPI given .
PMR consult done.
CAlled [phone] spoke with Miryam park given Pending reference number [id number] clinical faxed to [phone] To be reviewed by [facility] # [phone].
PLAN To [place] after auth obtained
[2024-11-17] MEDS: MELATONIN 5 MG PO (20:37)
[2024-11-17] MEDS: NEURONTIN 100 MG PO (20:37)
[2024-11-17 20:39] LABS: Glucose - Point of Care 299 mg/dl (70-99)
[2024-11-17] MEDS: LANTUS 0.14 UNITS SC (20:48)
[2024-11-17 23:17] VITALS: BP 134/71
[2024-11-18 07:25] VITALS: BP 109/66
[2024-11-18 07:44] LABS: Blood Urea Nitrogen 41 mg/dl (9-20); Calcium 9.8 mg/dl (8.4-10.2); Carbon Dioxide 30 mmol/L (22-30); Chloride 98 mmol/L (98-107); Estimated Creatinine Clearance 57 ml/min; Glucose 215 mg/dl (70-99); Potassium 5.4 mmol/L (3.5-5.1); Sodium 135 mmol/L (135-145); eGFR > 60.00
[2024-11-18 07:50] LABS: Hematocrit 41.3 % (39.0-52.0); Hemoglobin 13.6 g/dL (13.0-18.0); Mean Corp Hgb Conc. 32.9 g/dL (33.0-37.0); Mean Corpuscular Hgb 29.2 pg (27.0-31.0); Mean Corpuscular Volume 88.6 fL (80.0-94.0); Mean Platelet Volume 10.5 fL (7.4-10.4); Platelet Count 341 10^3/uL (130-400); Red Blood Cell Count 4.66 10^6/uL (4.70-6.10); Red Cell Dist. Width 13.1 % (11.5-14.5); White Blood Cell Count 14.6 10^3/uL (4.8-10.8)
[2024-11-18 08:22] LABS: Glucose - Point of Care 212 mg/dl (70-99)
[2024-11-18] MEDS: NOVOLOG FLEXPEN 3 UNITS SC ×3 (09:25→17:36)
[2024-11-18] MEDS: TOPROL XL 12.5 MG PO (09:26)
[2024-11-18] MEDS: NOVOLOG FLEXPEN-MODERATE RESISTANCE 3 UNITS SC (09:26)
[2024-11-18] MEDS: SENOKOT 17.2 MG PO (09:27)
[2024-11-18] MEDS: DECADRON 2 MG PO ×2 (09:27→20:09)
[2024-11-18] MEDS: BACTRIM DS 800 MG/160 MG 1 TABLET PO (09:27)
[2024-11-18] MEDS: ProAmatine 10 MG PO ×3 (09:27→17:36)
[2024-11-18] MEDS: COLACE 100 MG PO ×2 (09:27→20:09)
[2024-11-18] MEDS: PROTONIX 40 MG PO (09:27)
[2024-11-18] MEDS: ELIQUIS 5 MG PO ×2 (09:27→20:09)
[2024-11-18] MEDS: KEPPRA 1000 MG PO ×2 (09:27→20:09)
[2024-11-18] MEDS: LOTRIMIN 1% CREAM TOPICAL ×2 (09:30→20:13)
[2024-11-18] MEDS: DESENEX/MITRAZOL/ZEASORB TOPICAL (09:30)
[2024-11-18] MEDS: ZINC OXIDE OINTMENT TOPICAL ×2 (09:31→17:37)
[2024-11-18] MEDS: NSS 1000 IV ×2 (10:57→20:12)
[2024-11-18] MEDS: VIBRAMYCIN 100 MG PO ×2 (11:00→20:09)
[2024-11-18 11:24] VITALS: BP 126/76
[2024-11-18 12:33] VITALS: BP 113/73; PULSE 61
[2024-11-18 12:56] LABS: Glucose - Point of Care 314 mg/dl (70-99)
[2024-11-18] MEDS: NOVOLOG FLEXPEN-MODERATE RESISTANCE 7 UNITS SC (12:56)
--- NOTE | 2024-11-18 14:46 | W.PN.HOSP.TC ---
Today's Communication/Plan
-
Noted with hyperkalemia and mild elevation of creatinine at 1.2
Stop Bactrim
Transition to doxycycline 100 mg p.o. twice daily.
Continue antibiotics through 11/24.
Maintain Diaz catheter
Follow CBC
Assessment / Plan
Assessment / Plan
Impression:
64-year-old male past medical history of glioblastoma status post craniotomy on 10/08, diabetes, CVA, gout, atrial fibrillation on Eliquis, hypertension, orthostatic hypotension, hyperlipidemia, anemia, CKD 3, urinary incontinence, presenting with
shakiness and hiccups since yesterday. Patient had 1 episode of vomiting yesterday. Patient has tremor worse on the right side and fever of 100.1.
Admitted for sepsis secondary to UTI.
Blood culture came back positive, and infectious is consulted
Final blood culture back positive for Enterobacter Colace sensitive to Bactrim.
Infectious is recommending to transition cefepime 1g IV q6h to Bactrim DS 1 tab po bid through 11/24.
Assessment/plan:
Severe sepsis with acute organ dysfunction
Severe sepsis secondary to UTI.
Acute organ dysfunction in form of acute metabolic encephalopathy
Patient meets sepsis criteria on admission
Heart rate 100
WBCs 14
Source of infection is UTI
IV fluid
IV antibiotic in form of Rocephin
Enterobacter bacteremia
Urine culture pending
Consulted infectious disease
CT abdomen pelvis showed:
Severe distention of the bladder to the level of the umbilicus. New
Mild bilateral, right greater than left, hydronephrosis and moderate right hydroureter. No obstructing mass nor stone identified on the unenhanced scan. Progressed on the right. New on the left.
Tiny nonobstructing bilateral renal stones. Grossly stable
Mild prostate hypertrophy. New
Moderate fecal material in the region of the rectum concerning for fecal impaction. Associated mild rectal wall thickening. Possible early stercoral colitis.
Antibiotic transitioned from cefepime 1g IV q6h to Bactrim DS 1 tab po bid through 11/24.
Noted with hyperkalemia and mild elevation of creatinine. Antibiotic transitioned from Bactrim to doxycycline according to sensitivities to complete treatment through 11/24
Acute metabolic encephalopathy, secondary to sepsis
Improving
- Neurology was contacted by the admitting team since patient has recent craniotomy who did not have any further recommendations
Glioblastoma status post craniotomy on 10/08
- Continue Keppra for seizure prophylaxis
- Continue dexamethasone, currently on 2 mg twice daily, until follow-up with neurosurgery as OP.
Acute Urinary retention
CT abdomen pelvis showed:
Severe distention of the bladder to the level of the umbilicus.
Initiated on Flomax
Failed voiding trial with Diaz catheter inserted on 11/15.
Hyperglycemia secondary to infection/steroids
Type 2 diabetes
- Continue Lantus 14 units
-Add AC aspart 3 units
- Insulin sliding scale
Hemoglobin A1c 7.1
History of CVA
Continue Eliquis/statin
Gout
- Continue gabapentin
Paroxysmal atrial fibrillation
- Currently in sinus rhythm.
- Continue metoprolol
- Continue Eliquis
Essential hypertension
Continue metoprolol
Orthostatic hypotension
- Continue midodrine
Hyperlipidemia
- Continue statin
Chronic anemia
- Hemoglobin stable
CODE STATUS: Full code
DVT prophylaxis: Eliquis
Diet: Diabetic
Disposition: Pending physical therapy evaluation to determine discharge plan,
Anticipated Discharge: 24 - 48 hours
Subjective/Interval History
-
Date of Service: November 18, 2024
Objective Data
-
Labs:
Laboratory Results
11/18/24
06:04
WBC 14.6 H
Hgb 13.6
Hct 41.3
Plt Count 341 D
Sodium 135
Potassium 5.4 H
Chloride 98
Carbon Dioxide 30
BUN 41 H
Creatinine 1.2
Glucose 215 H
Calcium 9.8
Vital Signs:
Vital Signs
Temp Pulse Resp BP Pulse Ox
98.3 F 60 12 126/76 97
11/18/24 11:24 11/18/24 11:24 11/18/24 11:24 11/18/24 11:24 11/18/24 11:24
I&O
11/17/24 11/18/24 11/19/24
06:59 06:59 06:59
Intake Total 720 / 720 960 / 960
Output Total 1900 / 1900 1875 / 1875
Balance -1180 / -1180 -915 / -915
Physical Exam
-
General: Well Developed, Well Nourished, No Apparent Distress and Comfortable
HEENT: Normocephalic (Scalp jose/ wound is clean with no sign of bleeding breath), Atraumatic, No Ptosis, PERRLA and Nose Appears Normal
Respiratory: Clear to Auscultation and Non Labored Respirations
Cardiac: Regular Rhythm and S1/S2
Breast: Deferred by me
GI: Soft, Nontender, Nondistended and Normal Bowel Sounds
Genito-urinary: No Costovertebral Tender
Musculoskeletal: No Clubbing, No Cyanosis and No Edema
Skin: Warm
Neuro: Awake, Alert and No Motor Deficits
Psych: Calm
[2024-11-18 15:25] VITALS: BP 121/80
[2024-11-18 16:37] LABS: Glucose - Point of Care 260 mg/dl (70-99)
[2024-11-18] MEDS: NOVOLOG FLEXPEN-MODERATE RESISTANCE 5 UNITS SC (17:36)
[2024-11-18] MEDS: CRESTOR 20 MG PO (17:36)
--- NOTE | 2024-11-18 17:39 | CM ---
PT indicates need for acute rehab.
[facility]
CAlled [phone] spoke with Miryam jarrett Pending reference number [id number] clinical faxed to [phone] To be reviewed by [facility] # [phone].
Called Miryam number LM to check status No call back
updated.
PLAN To [place] after auth obtained
[2024-11-18] MEDS: DESENEX/MITRAZOL/ZEASORB 1 APPLIC TOPICAL (20:13)
[2024-11-18 21:00] LABS: Glucose - Point of Care 285 mg/dl (70-99)
[2024-11-18] MEDS: LANTUS 0.14 UNITS SC (22:01)
[2024-11-18] MEDS: MELATONIN 5 MG PO (22:01)
[2024-11-18] MEDS: NEURONTIN 100 MG PO (22:01)
[2024-11-18] MEDS: ZINC OXIDE OINTMENT 1 APPLIC TOPICAL (23:00)
[2024-11-18 23:19] VITALS: BP 119/76
[2024-11-19 07:52] LABS: % Basophils 0.2 % (0-2); % Eosinophils 0.2 % (0-6); % Lymphocytes 14.2 % (20.5-51.1); % Monocytes 5.9 % (1.7-9.3); % Neutrophils 74.5 % (42.2-75.2); Absolute Immature Granulocytes 0.6 10^3/uL (0-0.05); Absolute Lymphocytes 1.8 10^3/uL (1.2-3.4); Absolute Monocytes 0.7 10^3/uL (0.1-0.6); Absolute Neutrophils 9.3 10^3/uL (1.4-6.5); Hematocrit 38.9 % (39.0-52.0); Hemoglobin 13.5 g/dL (13.0-18.0); Mean Corp Hgb Conc. 34.7 g/dL (33.0-37.0); Mean Corpuscular Volume 86.4 fL (80.0-94.0); Nucleated Red Blood Cells % 0 % (-); Platelet Count 346 10^3/uL (130-400); White Blood Cell Count 12.5 10^3/uL (4.8-10.8)
[2024-11-19 08:14] LABS: Glucose - Point of Care 168 mg/dl (70-99)
[2024-11-19 08:20] VITALS: BP 124/60
[2024-11-19 08:46] LABS: Blood Urea Nitrogen 36 mg/dl (9-20); Calcium 9.6 mg/dl (8.4-10.2); Carbon Dioxide 28 mmol/L (22-30); Chloride 101 mmol/L (98-107); Estimated Creatinine Clearance 69 ml/min; Glucose 176 mg/dl (70-99); Potassium 5.2 mmol/L (3.5-5.1); Sodium 134 mmol/L (135-145); eGFR > 60.00
[2024-11-19] MEDS: VIBRAMYCIN 100 MG PO (08:48)
[2024-11-19] MEDS: SENOKOT 17.2 MG PO (08:48)
[2024-11-19] MEDS: ProAmatine 10 MG PO ×2 (08:48→11:58)
[2024-11-19] MEDS: DECADRON 2 MG PO (08:49)
[2024-11-19] MEDS: KEPPRA 1000 MG PO (08:49)
[2024-11-19] MEDS: ELIQUIS 5 MG PO (08:49)
[2024-11-19] MEDS: PROTONIX 40 MG PO (08:49)
[2024-11-19] MEDS: COLACE 100 MG PO (08:49)
[2024-11-19] MEDS: TOPROL XL 12.5 MG PO (08:49)
[2024-11-19] MEDS: NOVOLOG FLEXPEN-MODERATE RESISTANCE 1 UNITS SC (08:50)
[2024-11-19] MEDS: NOVOLOG FLEXPEN 3 UNITS SC ×2 (08:50→12:38)
[2024-11-19] MEDS: DESENEX/MITRAZOL/ZEASORB 1 APPLIC TOPICAL (08:51)
[2024-11-19] MEDS: ZINC OXIDE OINTMENT 1 APPLIC TOPICAL (08:51)
[2024-11-19] MEDS: LOTRIMIN 1% CREAM 1 APPLIC TOPICAL (08:51)
[2024-11-19 09:30] VITALS: BP 125/76; PULSE 74
[2024-11-19 09:50] VITALS: BP 125/76; PULSE 74
[2024-11-19 12:13] LABS: Glucose - Point of Care 315 mg/dl (70-99)
[2024-11-19] MEDS: NOVOLOG FLEXPEN-MODERATE RESISTANCE 7 UNITS SC (12:39)
--- NOTE | 2024-11-19 13:28 | CM ---
KEVIN Lara from [facility], [place]
Approved Acute Rehab
Auth # [id number]
Start date 11/19/24, LCD/NRD 11/24/24
updates to [employer]# [phone]
[2024-11-19] MEDS: LOKELMA 10 GRAM PO (14:58)
[2024-11-19] MEDS: DULCOLAX 10 MG RECTAL (15:12)
[2024-11-19 15:22] VITALS: BP 120/67
--- NOTE | 2024-11-19 15:26 | W.DS.TRANS ---
DC Summary - Chief Of Planning
-
Discharge Instructions:
Discharge Diagnosis/Procedures Complicated UTI
Diet Regular
Instructions:
Stand-Alone Forms:
Changes to Home Medications: Yes
Discharge Medications:
DC Medications w/original date entered in [employer]
acetaminophen 325 mg tablet 650 mg PO Q6HPRN PRN mild Pain 11/11/24
apixaban 5 mg tablet (Eliquis) 5 mg PO BID Arrhythmia 30 days #60 tabs 11/11/24
bisacodyl 10 mg rectal suppository (Dulcolax (bisacodyl)) 10 mg HI DAILYPRN PRN constipation 11/11/24
clotrimazole 1 % topical cream (Athlete's Foot (clotrimazole)) 1 applic topical BID skin rash, groins 30 days #50 grams 11/11/24
dexamethasone 2 mg tablet 2 mg PO BID brain tumor 30 days #60 tabs 11/11/24
docusate sodium 100 mg capsule 100 mg PO BID Constipation 30 days #60 caps 11/11/24
gabapentin 100 mg capsule 100 mg PO HS 30 days #30 caps 11/11/24
lansoprazole 30 mg capsule,delayed release 30 mg PO DAILY Gastrointestinal Issue 11/11/24
levetiracetam 1,000 mg tablet 1,000 mg PO BID Seizure prophylaxis 30 days #60 tabs 11/11/24
melatonin 5 mg tablet 5 mg PO HS Sleep 11/11/24
metoprolol succinate 25 mg tablet,extended release 24 hr 12.5 mg (1/2 x 25 mg) PO DAILY Blood pressure 30 days #15 tabs 11/11/24
midodrine 5 mg tablet 10 mg PO TID Orthostasis 11/11/24
rosuvastatin 20 mg tablet 20 mg PO QPM Cholesterol 11/11/24
sennosides 8.6 mg tablet (senna) 17.5 mg PO DAILY Gastrointestinal Issue 11/11/24
zinc oxide 20 % topical ointment 1 applic topical TID buttock 11/11/24
doxycycline hyclate 100 mg capsule 100 mg PO Q12 #10 caps 11/19/24
insulin aspart U-100 100 unit/mL (3 mL) subcutaneous pen 4 unit (0.04 mL) SC AC #15 mL 11/19/24
insulin glargine 100 unit/mL (3 mL) subcutaneous pen (Lantus Solostar U-100 Insulin) 15 unit (0.15 mL) SC HS Diabetes #0 mL 11/19/24
Home Medication Changes
Antibiotics through 11/24
Insulin regimen adjusted with increased dose of Lantus and addition of AC NovoLog
Pending Results: No
--- NOTE | 2024-11-19 15:31 | CM ---
PT indicates need for acute rehab.
[facility]
updated.From Omar King :TC from Jane from [facility]
Approved Acute Rehab
Auth # [id number]
Start date 11/19/24, LCD/NRD 11/24/24
updates to [employer] p# [phone]

Chandrika aware of AUTH AND ACCEPTED AT [facility]
[place]
report [phone]
fax [phone]
PLAN To [facility]
[2024-11-19] MEDS: ZINC OXIDE OINTMENT TOPICAL (15:39)
== END 2024-11-19 16:26 | DRG 871 ==
LOC: 4 EAST ACU 20:31
PROVIDERS: Emergency Medicine; General Practice; Nurse Practitioner Family; Physician Assistant; ADMITTING PHYSICIAN Hospitalist; ATTENDING PHYSICIAN Internal Medicine; CONSULT PHYSICIAN Internal Medicine Infectious Disease; CONSULT PHYSICIAN Physical Medicine & Rehabilitation; EMERGENCY PHYSICIAN Student in an Organized Health Care Education/Training Program; FAMILY PHYSICIAN Internal Medicine
DX: A41.9 Sepsis, unspecified organism (principal); G93.41 Metabolic encephalopathy; N13.6 Pyonephrosis; J98.11 Atelectasis; N17.9 Acute kidney failure, unspecified; Z11.52 Encounter for screening for COVID-19; Z85.841 Personal history of malignant neoplasm of brain; M10.9 Gout, unspecified; I48.0 Paroxysmal atrial fibrillation; Z79.01 Long term (current) use of anticoagulants; N18.30 Chronic kidney disease, stage 3 unspecified; I12.9 Hypertensive chronic kidney disease with stage 1 through stage 4 chronic kidney disease, or unspecified chronic kidney disease; I95.1 Orthostatic hypotension; E78.5 Hyperlipidemia, unspecified; D64.9 Anemia, unspecified; E11.65 Type 2 diabetes mellitus with hyperglycemia; E11.22 Type 2 diabetes mellitus with diabetic chronic kidney disease; T38.0X5A Adverse effect of glucocorticoids and synthetic analogues, initial encounter; Z86.73 Personal history of transient ischemic attack (TIA), and cerebral infarction without residual deficits; E87.5 Hyperkalemia; R65.20 Severe sepsis without septic shock; Z79.4 Long term (current) use of insulin; Z79.899 Other long term (current) drug therapy; Z82.3 Family history of stroke; Z87.442 Personal history of urinary calculi
CPT/HCPCS: 70450; 71045; 74176; 80048; 80053; 81003; 81015; 82962; 83036; 83605; 84484; 85025; 85027; 87040; 87086; 87149; 87186; 87205; 87502; 87811; 93005; 96361; 96374; 97112; 97116; 97163; 97167; 97530; 97535; 99285

== ENCOUNTER → 2024-12-09 14:10 | Outpatient (REF) | payer BC, SELFPAY | LOC: MRI 14:10 | PROVIDERS: ATTENDING PHYSICIAN Neurological Surgery; FAMILY PHYSICIAN Internal Medicine | DX: C71.9 Malignant neoplasm of brain, unspecified (principal); Z98.890 Other specified postprocedural states | CPT/HCPCS: 70553; A9575 ==

== ENCOUNTER 2024-12-16 04:07 | Inpatient (IN) | payer BC, SELFPAY ==
[2024-12-15] VITALS (11 sets, daily range): BP systolic 75–121; BP diastolic 39–86
[2024-12-15 22:03] LABS: Hemoglobin 15.3 g/dL (13.0-18.0); Mean Corp Hgb Conc. 33.3 g/dL (33.0-37.0); Mean Corpuscular Hgb 30.1 pg (27.0-31.0); Mean Corpuscular Volume 90.6 fL (80.0-94.0); Mean Platelet Volume 10.3 fL (7.4-10.4); Platelet Count 159 10^3/uL (130-400); Red Blood Cell Count 5.08 10^6/uL (4.70-6.10); Red Cell Dist. Width 14.3 % (11.5-14.5); White Blood Cell Count 8.8 10^3/uL (4.8-10.8)
[2024-12-15 22:21] LABS: Blood Urea Nitrogen 43 mg/dl (9-20); Calcium 8.5 mg/dl (8.4-10.2); Carbon Dioxide 25 mmol/L (22-30); Chloride 105 mmol/L (98-107); Estimated Creatinine Clearance 52 ml/min; Glucose 313 mg/dl (70-99); Potassium 4.5 mmol/L (3.5-5.1); Sodium 137 mmol/L (135-145); eGFR > 60.00
[2024-12-16] VITALS (18 sets, daily range): BP systolic 72–155; BP diastolic 48–74; PULSE 60–65; O2SAT 97; BMI 20.7
[2024-12-16] MEDS: NSS 1000 IV ×4 (00:17→15:31)
[2024-12-16] MEDS: PROTONIX IV 40 MG IV (00:24)
[2024-12-16] MEDS: SOLU-CORTEF 100 MG IV (00:24)
[2024-12-16 00:38] LABS: Urine Albumin 3+ (Neg - Trace); Urine Bilirubin Negative (Negative); Urine Character Cloudy (Clear); Urine Color Amber; Urine Glucose 2+ (Negative); Urine Ketone Negative (Negative); Urine Leukocyte 2+ (Negative); Urine Nitrite Negative (Negative); Urine Occult Blood 4+ (Negative); Urine Urobilinogen Negative (Neg - 1+)
[2024-12-16 00:48] LABS: Lactic Acid 2.1 mmol/L (0.7-2.0)
[2024-12-16 00:50] LABS: Urine Red Blood Cell >100 /HPF (0-2)
--- NOTE | 2024-12-16 01:32 | ED.GENMED ---
History of Present Illness
General
Chief Complaint: Urinary Symptoms
Source: spouse, ambulance crew, previous radiology exam and previous hospital records
Exam Limitations: dementia (Chronically nonverbal)
Time Seen by Provider: 12/15/24 23:41
History of Present Illness
History of Present Illness:
This is a 64-year-old gentleman who has history of glioblastoma status postcraniotomy in September of this year. Hospitalized here in October due to acute UTI, sepsis with Enterobacter bacteremia. Noted to have severe urinary retention requiring Diaz
catheter and discharged back to [facility] with eventual discharge home December 02. Since his surgical resection in September patient has had expressive aphasia and slow decline in functioning. Maintained on Decadron 2 mg twice daily.
He has history of atrial fibrillation maintained on Eliquis as well as metoprolol.
History of orthostatic hypotension maintained on midodrine 10 mg 3 times daily.
History of type 2 diabetes maintained on insulin.
Maintained on Keppra for seizure prophylaxis.
states he developed recurrent UTI several days ago with significant decline in mental functioning which she has noted with previous UTIs. He also suffered an episode of acute hypoglycemia with blood sugar in the 20s requiring EMS treatment and
patient was taken to [address] [place] [address] where he was admitted for 2 days for treatment of UTI, discharged this afternoon to home with prescription for cefuroxime 500 mg twice daily. She states during the ride home this afternoon he began
vomiting and has been vomiting since this afternoon and into this evening. He has not had a fever. She denies cough. He has not suffered any falls.
Upon EMS arrival patient noted to be hypotensive as well as hypoxic. IV fluids initiated as well as nasal cannula oxygen.
Since arrival to the ED patient has had no further vomiting.
Thus far has received 1 L normal saline solution. He continues with hypotension with systolic blood pressure in the 80s. Hypoxia has since resolved; pulse ox currently 95% on room air.
Past History
Past History
ED Past Medical History: CVA, NIDDM, Other (Gout) and Other (Kidney stones)
ED Past Surgical History: Orthopedic (Left hand surgery)
Social History
Tobacco: Non-smoker
Alcohol: Occasional
Personal:
Living: with family
Employment: Employed
Family History
Family History: Other (Noncontributory)
Phy Exam
Physical Exam
Physical Exam:
GENERAL: 64-year-old gentleman appears his stated age, appears somewhat chronically debilitated. He is awake and alert, nonverbal. Does not follow commands. Overall appears in no distress. No cough, no respiratory distress. is accompanying.
EYE: pupils equal and reactive. anicteric
NECK: Supple, nontender, no meningismus, no significant adenopathy.
ENT: posterior pharynx is clear, oral mucosa is minimally dry. No rhinorrhea.
CARDIAC: Regular rate and rhythm. no murmur.
LUNGS: Clear breath sounds bilaterally, no acute respiratory distress, no wheezes/rales/rhonchi
ABDOMEN: Soft, nondistended, without focal tenderness, no r/g, no cvat. normoactive BS. No palpable masses.
NEUROLOGICAL: Awake and alert, nonverbal, does not follow commands. Preferentially lying on his left side. Passively moving all 4 extremities. Is not following commands thus difficulty assessing bilateral motor strength.
SKIN: Warm and dry, normal color, skin intact. No rash.
MUSCULOSKELETAL: No C/C/E. peripheral pulses are full and equal b/l. No palpable tenderness.
PSYCH: Nonverbal. Appears in no distress.
Course
Orders/Labs/Results
Orders:
Orders
12/15/24 21:56
Basic Metabolic Panel Urgent
Complete Blood Count/No Diff Urgent
12/15/24 23:48
Lactic Acid Urgent
Blood Culture Urgent
MAMIE Source: Blood/Venous
Specimen Description:
12/15/24 23:58
Urine Reflex Culture from UA [Urinalysis Reflex To Culture] Urgent
Date Specimen was Collected: 12/15/24
Time Specimen was Collected: 23:58
12/16/24 00:07
0.9% Sodium Chloride 1000 ml [Nss] 1,000 ml IV BOLUS
Hydrocortisone Sod Succinate [Solu-Cortef] 100 mg IV NOW STA
12/16/24 00:09
Urine Microscopic Reflex Cult Urgent
Urine Culture Urgent
MAMIE Source: U
Specimen Description:
Date Specimen was Collected: 12/15/24
Time Specimen was Collected: 23:58
Pantoprazole [Protonix IV] 40 mg IV NOW STA
CR Chest Portable - 1 View Urgent
Comment:
Reason For Exam: vomiting, cough
Reason Study Needs to be Portable: Unable to Transport
12/16/24 00:16
Blood Culture Urgent
MAMIE Source: Blood/Venous
Specimen Description:
12/16/24 01:32
0.9% Sodium Chloride 1000 ml [Nss] 1,000 ml IV 250 mls/hr
CefTRIAXone [Rocephin] 1,000 mg IV NOW STA
12/16/24 03:00
Flush (0.9% Sodium Chloride) [Flush (Nss)] See Dose Instructions IV PER PROTOCOL
12/16/24 03:21
Admit/Transfer Patient As Directed
Co-Sign Provider:
Level of Care: Inpatient admission
Assign to:: Telemetry
Physician / Group: Ruddy
Diagnosis: Hypotension, Hypoglycemia
Reason for Telemetry: Arrhythmia
Date to Stop Telemetry: 12/19/24
Time to Stop Telemetry: 11:00
Reason for Hospitalization: Hypotension, Hypoglycemia
Expected length of stay greater than two midnights?: Yes
ELOS- Estimated Length of Stay in days: 3
I certify the patient meets the requirements for IP care: Yes
PRN Pain Medication Management As Directed
May give lesser potent ordered pain med per pt: Yes
preference::
Protocol:: Medication orders for pain may be administered in a
manner that supports deferring to patient preference
when the pt is:
- Requesting an ordered lesser potent pain medication.
Least to most potent pain medications are defined
as: acetaminophen < NSAID < tramadol < opioids
(morphine, oxycodone, hydromorphone).
- Requesting a lesser dose of the same medication IF
ORDERED.
- Requesting a less intrusive route of administration
if both routes are prescribed by the provider (PO <
IV).
12/16/24 03:23
Code Status As Directed
Resuscitation Status: Do not resuscitate
Reached after discussion with pt or family/Healthcare POA: Yes
DNR Bracelet Application ONCE
12/16/24 04:37
0.9% Sodium Chloride 1000 ml [Nss] 1,000 ml IV 125 mls/hr
Acetaminophen [Tylenol] 325 mg PO Q6HPRN PRN mild Pain
Albuterol Nebs [Ventolin Nebules] 2.5 mg INH R Q4HPRN PRN
Dextrose 50%-Water [Dextrose 50% Syringe] 12.5 grams IV [id number] PRN
Glucagon [GlucaGen] 1 mg IM PRN PRN
Ondansetron Injectable [Zofran] 4 mg IV Q6HPRN PRN
12/16/24 04:37
Activity As Directed
Activity Level: Ambulate
With Assistance
Bedside Glucose Monitoring As Directed
Frequency: AC&HS
Additional Instructions:: Change to q6h if pt on TPN, tube feeding or not eating
EKG with chest pain [ECG as needed] As Directed
ECG as needed for:: Chest Pain
Diaz Catheter [Catheter- Indwelling] As Directed
Reason for insertion: Chronic Diaz on Admit
I/O [Intake/ Output] As Directed
Frequency: Per unit guidelines
Neurological Checks As Directed
Frequency: q4h
Records Request [Obtain Records] As Directed
Dates of Information to be Released: Most Recent
Type of Information Requested: Entire Record
If Other, list type of info requested: Microbiology results / cultures
Obtain Records from: [facility]
Vital Signs As Directed
Frequency: Per unit guidelines
Weight As Directed
Frequency: Daily
Oxygen Therapy [O2 Therapy] [RESP] Routine
Titrate/Wean O2 to maintain O2 sat greater than (%): 94
Ot Eval And Treat Routine
PT Consult [Pt Eval And Treat] Routine
Activity Level: Ambulate
With Assistance
Speech Therapy Eval & Treat Routine
12/16/24 Breakfast
1800 calorie (15 carb) Diabetic
At Your Request: Non-Participating
12/16/24 06:08
Basic Metabolic Panel IN AM
Complete Blood Count/No Diff IN AM
Glycohemoglobin (HgbA1c) IN AM
12/16/24 07:30
Insulin Aspart Corrective Low [Novolog Flexpen-Low Resistance] See Protocol SC AC
Insulin Aspart Pen [Novolog Flexpen] 4 units SC AC
12/16/24 08:00
Apixaban [Eliquis] 5 mg PO BID
Dexamethasone [Decadron] 2 mg PO BID
Levetiracetam [Keppra] 1,000 mg PO BID
Metoprolol [Lopressor] 12.5 mg PO BID
Midodrine [ProAmatine] 10 mg PO TID @ 0800,1200,1700
Pantoprazole [Protonix] 40 mg PO DAILY
12/16/24 18:00
Rosuvastatin Calcium [Crestor] 20 mg PO QPM
12/16/24 22:00
Finasteride [Proscar] 5 mg PO HS
Gabapentin [Neurontin] 100 mg PO HS
insulin glargine [Lantus Solostar U-100 Insulin] 12 unit SC HS
12/19/24 11:00
DC Protocol for Telemetry ONCE
Abnormal Lab Results
12/15/24 12/16/24
21:56 00:09
BUN 43 H mg/dl
(9-20)
Glucose 313 H mg/dl
(70-99)
Lactic Acid 2.1 H mmol/L
(0.7-2.0)
Ur Occult Blood Reflex 4+ A
(Negative)
Leukocyte Esterase Rfl 2+ A
(Negative)
Urine RBC >100 A /HPF
(0-2)
Urine Glucose 2+ A
(Negative)
Urine Albumin (Reflex) 3+ A
(Neg - Trace)
12/15/24 21:56
12/15/24 21:56
Vital Signs
Initial and Last Documented VS:
Initial Vital Signs
Temp Pulse Resp BP Pulse Ox
98.4 F 89 18 86/59 86
12/15/24 21:17 12/15/24 21:17 12/15/24 21:17 12/15/24 21:17 12/15/24 21:17
Last Documented Vital Signs
Temp Pulse Resp BP Pulse Ox
98.8 F 61 16 116/57 94
12/16/24 05:05 12/16/24 05:05 12/16/24 05:05 12/16/24 05:05 12/16/24 05:05
MDM/Problems Addressed
Differential Diagnosis Includes:
Patient noted to be hypotensive, initially hypoxic requiring nasal cannula oxygen.
notes several episodes of vomiting since discharge from [facility] this afternoon. He has had no vomiting since arrival to the ED.
Concern for recurrent sepsis, partially treated UTI, aspiration, pneumonia, bowel obstruction, gastritis, peptic ulcer disease. As patient chronically maintained on Eliquis, PE is unlikely.
Hypoxia has resolved with 1 L IV normal saline solution. He continues with hypotension without tachycardia. Will continue an additional liter of normal saline solution.
Upon review of limited discharge records from [facility], I am concerned that patient had not been receiving midodrine as well as Decadron. Concern for acute adrenal insufficiency contributing to hypotension.
Along with IV fluids will give an IV dose of hydrocortisone.
Will check lactic acid, blood and urine cultures as well as urinalysis.
There is no respiratory distress, although not able to take a deep breath, no appreciable rales nor rhonchi. Will check chest x-ray.
Abdomen is soft without appreciable tenderness. No palpable masses. At this point no indication for abdominal imaging.
If hypotension persists will initiate IV pressors.
Upon review of records as well as with , patient is DNR status.
Chronic conditions affecting care: Arrhythmia, Neurological disorder and Kidney disease
*Radiology
Radiology exam reviewed: preliminary read by ED provider (Chest x-ray initially concerning for pneumothorax on the right however lung markings extend out to the periphery bilaterally on additional imaging. No evidence of pneumothorax. No evidence
of infiltrate.)
*Pulse Oximetry
SaO2: 93
Oxygen Mode of Delivery: Room air
Patient hypoxic: no
*Parts Counter Associate Interpretation
Rate: normal
Interpretation: normal
Rhythm: sinus
*Critical Care Note
Total Time (30-74mins, 75-104mins- exclusive of procedures): Not Applicable
Update Note
Update Note:
01:30
After 2 L normal saline solution, IV hydrocortisone, blood pressure has improved currently 113/53.
Labs show normal white blood cell count, normal H&H, moderately elevated BUN/creatinine 43/1.3. Moderately elevated glucose 313 without acidosis.
Lactic acid minimally elevated 2.1. He remains afebrile.
Urinalysis shows greater than 100 RBCs, +2 leukocyte esterase, 3-5 WBCs. No evidence of bacteria but according to urine culture 2 days ago was positive for UTI.
Significant concern for partially treated UTI, with elevated lactic acid concern for bacteriuria, sepsis.
Blood cultures are pending. Urine culture pending and will attempt to obtain records from [facility].
He continues to have no respiratory distress. Room air pulse ox 95%.
Portable chest x-ray initially concerning for potential pneumothorax on the right side but upon further review, lung markings are noted to track to the periphery, no evidence of pneumothorax.
Will initiate IV Rocephin, continue IV fluids and will admit to hospitalist service.
ED Attending Note
-
Portions of this chart may have been created with voice recognition software.� Occasional wrong word or��sound alike� substitutions may have occurred due to the inherent limitations of voice recognition software.
Discharge Plan
Departure
Patient Disposition: Admit
Date of Disposition: 12/16/24
Time of Disposition: 01:48
Admit to: Telemetry
Admit to doctor: Ruddy
Presentation/result/management discussed w/ accepting MD/DO: Hospitalist
Condition: Fair
Discharge Problem:
acute nausea and vomiting, Acute hypotension, Urinary tract infection associated with catheterization of urinary tract, Sepsis, Hyperglycemia due to type 2 diabetes mellitus
Interventions
Interventions:
*Risk Screen - Suicide Last Done: 12/16/24 05:17
*General Assessment Last Done: 12/15/24 21:17
*Neglect/Abuse Screening Last Done: 12/15/24 21:17
*ED- Fall Risk Assessment Last Done: 12/15/24 21:17
*ED COVID-19 Vaccine History Last Done: 12/15/24 21:17
*Nursing Disposition Last Done: 12/16/24 04:38
ED-Male Genitourinary Assessment Last Done: 12/15/24 22:34
[2024-12-16] MEDS: ROCEPHIN 1000 MG IV (01:41)
--- NOTE | 2024-12-16 03:28 | HPS.HSE ---
Family Physician
-
Family Physician: Kurt Fuchs
Chief Complaint
-
N/V
History of Present Illness
Patient is a 64y M with PMH significant for A-Fib, DM-II and glioblastoma s/p resection who presents to ED complaining of N/V. History obtained from ED physician / staff. Patient has aphasia following recent meningioma resection. not
present at the time of my exam - but spoke with ED staff earlier in the evening.
Patient diagnosed with rapidly growing glioblastoma in September 2024. He underwent resection on 10/08. He was admitted to [facility] for acute rehab following surgery.
Patient was hospitalized here at 11/11 - 11/19 secondary to UTI / sepsis. He was discharged back to [facility] following that admission. He had urinary retention and Diaz remained in place at the time of his discharge from [facility] on 12/02/24.
Patient had hypoglycemic episode at home about 2-3 days ago and was taken by EMS to [facility]. He was hospitalized there for 2 days. His insulin regimen was adjusted and he was treated with abx for reported UTI. He was discharged
on 12/15.
noted that patient developed N/V on the car ride home from the hospital. The N/V persisted throughout the afternoon / evening and he was brought to the ED for further evaluation and treatment.
Patient has had no recurrent emesis since arrival here in the ED.
Discharge instructions / med list from [facility] reviewed and notable for multiple missing medications - including dexamethasone, midodrine, Eliquis, etc.
Seems likely that these were also held during his 2 day admission at that facility. Will obtain formal records for review.
Medical History
Past Medical History
Past Medical History: Reports Other
Additional Past Medical History:
Glioblastoma
Aphasia s/p GBM Resection
Diabetes Mellitus, Type II
Diabetic Neuropathy
CKD Stage III
Hyperlipidemia
Gout
Nephrolithiasis
Past Surgical History: Reports Other
Additional Past Surgical History:
Glioblastoma Resection (10/08/24)
Left Hand Reconstruction
Social History
Tobacco: Non-smoker
Alcohol: Occasional
Personal:
Living: With Family
Family History
Family History: Not pertinent
Allergies / Home Medications
Allergies reflects when Allergies were last updated in [employer].
Home Medications with original date entered in [employer]
Allergy/Medication List:
Allergies
Allergy/AdvReac Type Severity Reaction Status Date / Time
No Known Allergies Allergy Verified 03/24/23 08:35
Home Medications
acetaminophen 325 mg tablet 325 mg PO Q6HPRN PRN mild Pain 11/11/24
apixaban 5 mg tablet (Eliquis) 5 mg PO BID Arrhythmia 30 days #60 tabs 11/11/24
clotrimazole 1 % topical cream (Athlete's Foot (clotrimazole)) 1 applic topical BID skin rash, groins 30 days #50 grams 11/11/24
dexamethasone 2 mg tablet 2 mg PO BID brain tumor 30 days #60 tabs 11/11/24
gabapentin 100 mg capsule 100 mg PO HS 30 days #30 caps 11/11/24
levetiracetam 1,000 mg tablet 1,000 mg PO BID Seizure prophylaxis 30 days #60 tabs 11/11/24
melatonin 5 mg tablet 5 mg PO HS Sleep 11/11/24
rosuvastatin 20 mg tablet 20 mg PO QPM Cholesterol 11/11/24
zinc oxide 20 % topical ointment 1 applic topical TID buttock 11/11/24
finasteride 5 mg tablet 5 mg PO HS Urinary issue 30 days #30 tabs 11/26/24
levetiracetam 500 mg tablet 1,000 mg (2 x 500 mg) PO BID seizure 30 days #120 tabs 11/26/24
midodrine 5 mg tablet 10 mg (2 x 5 mg) PO TID @ 0800,1200,1700 orthostatic hypotension 30 days #180 tabs 11/26/24
omeprazole 20 mg capsule,delayed release 20 mg PO DAILY GERD 30 days #30 caps 11/26/24
insulin aspart U-100 100 unit/mL (3 mL) subcutaneous pen 8 unit SC AC Diabetes 12/16/24
insulin glargine 100 unit/mL (3 mL) subcutaneous pen (Lantus Solostar U-100 Insulin) 23 unit SC HS Diabetes 12/16/24
metoprolol tartrate 25 mg tablet 12.5 mg PO BID 12/16/24
Review of Systems
-
Unable to obtain full review of systems at this time due to: Patient Non-verbal
Physical Exam
Vital Signs
Vital Signs
Temp Pulse Resp BP Pulse Ox
98.4 F 67 15 123/58 94
12/15/24 21:17 12/16/24 03:00 12/16/24 03:00 12/16/24 03:00 12/16/24 03:00
Physical Exam
General: Other (64y M in no evident distress. Awake and makes eye contact. Does not speak or follow commands.)
HEENT: Other (Dry MM. Neck supple. Incision over frontal area healing well.)
Respiratory: Clear; No Wheezes, Rales or Rhonchi
Cardiac: S1/S2 and Regular Rhythm; No Murmur
GI: Soft, Non Tender, Non Distended and Normal Bowel Sounds
Genito-urinary: Other (Diaz in place draining dark urine into leg bag.)
Musculoskeletal: No Clubbing, No Cyanosis and No Edema
Neuro: Awake
Laboratory Results
-
12/15/24 21:56
12/15/24 21:56
Laboratory Results
Lactic Acid 2.1 mmol/L (0.7-2.0) H 12/16/24 00:09
Impression/Plan
-
A/P: Patient is a 64y M with PMH significant for A-Fib, DM-II and glioblastoma s/p resection who presents to ED for evaluation of N/V.
N/V
EMANI
- Admit for further evaluation and treatment.
- N/V beginning this AM - ? due to hypotension, cessation of dexamethasone, PO abx, etc.
- No emesis since arrival in the ED this evening.
- SCr = 1.3 compared to baseline of 0.9.
- IVF support. Antiemetics if needed.
- Hold on further abx for now (see below).
- Follow for any recurrent emesis or other new complaints.
Hypotension
- Likely combination of volume losses and lack of midodrine / dexamethasone.
- Restart usual dexa / midodrine.
- IVFs support as noted above.
- Follow for stability / improvement in BP.
Possible UTI
- Reportedly diagnosed with UTI at [facility] 2-3 days ago.
- Discharged on cefuroxime x 5 additional days.
- Ceftriaxone x 1 dose given in the ED this evening.
- UA without evidence of current infection.
- Hold further abx for now. Follow-up repeat culture data.
- Sent to [facility] for review of micro / lab data.
Urinary Retention
- Diaz placed in October due to retention / UTI / sepsis.
- Maintain Diaz.
- Continue finasteride.
DM-II
- Patient with hypoglycemic episode 3 days ago leading to [facility] hospitalization.
- Insulin regimen decreased by about half per discharge instructions.
- Continue basal insulin - increase somewhat.
- Continue mealtime insulin and adjust as needed.
- Follow glucose and cover with SSI as needed.
Glioblastoma
Aphasia
Weakness
- s/p resection of rapidly growing glioblastoma on 10/08/24.
- Persistent aphasia / weakness following surgery.
- PT / OT / Speech evals during stay.
- Supportive care.
- Continue dexamethasone as noted above and Keppra for seizure prophylaxis.
Paroxysmal Atrial Fibrillation
- Stable. Continue Eliquis for stroke risk reduction.
DVT Prophylaxis: On Eliquis
Code Status: DNR
--- NOTE | 2024-12-16 05:09 | PTCARENOTE ---
Rec'd pt from ER. transferred to bed. pt is nonverbal but is able to nod to yes and no questions. NSS at 125ml/hr. Chronic Flores leg bag changed to flores bag. no family present so admission questions were difficult to do. bed alarm in place.
[2024-12-16 06:45] LABS: Hematocrit 40.3 % (39.0-52.0); Hemoglobin 13.3 g/dL (13.0-18.0); Mean Platelet Volume 10.8 fL (7.4-10.4); Platelet Count 147 10^3/uL (130-400); Red Blood Cell Count 4.43 10^6/uL (4.70-6.10); Red Cell Dist. Width 14.4 % (11.5-14.5); White Blood Cell Count 11.2 10^3/uL (4.8-10.8)
[2024-12-16 07:07] LABS: Blood Urea Nitrogen 38 mg/dl (9-20); Calcium 7.9 mg/dl (8.4-10.2); Carbon Dioxide 24 mmol/L (22-30); Chloride 111 mmol/L (98-107); Estimated Creatinine Clearance 54 ml/min; Glucose 186 mg/dl (70-99); Potassium 4.1 mmol/L (3.5-5.1); Sodium 141 mmol/L (135-145); eGFR > 60.00
[2024-12-16 07:22] LABS: Glucose - Point of Care 172 mg/dl (70-99)
[2024-12-16] MEDS: LOPRESSOR 12.5 MG PO ×2 (09:14→22:01)
[2024-12-16] MEDS: PROTONIX 40 MG PO (09:14)
[2024-12-16] MEDS: KEPPRA 1000 MG PO ×2 (09:15→22:02)
[2024-12-16] MEDS: ProAmatine 10 MG PO ×3 (09:16→18:18)
[2024-12-16] MEDS: DECADRON 2 MG PO ×2 (09:18→22:02)
[2024-12-16] MEDS: ELIQUIS 5 MG PO ×2 (09:18→22:02)
[2024-12-16] MEDS: NOVOLOG FLEXPEN 4 UNITS SC ×2 (09:48→13:51)
[2024-12-16] MEDS: NOVOLOG FLEXPEN-LOW RESISTANCE 172 UNITS SC (09:48)
[2024-12-16 10:50] LABS: Glycohemoglobin (HgbA1c) 7.6 % (4.0-5.6)
--- NOTE | 2024-12-16 11:13 | PTOTSP ---
[employer] Evaluations
Patient presents with signs concerning for at least mild oral/pharyngeal dysphagia and has acute on chronic risk factors (i.e., UTI; prior CVAs, glioblastoma s/p resection). CXR w/o PNA.
Communication is currently significantly impaired. Patient with baseline aphasia but appears worse than last documented. Currently patient inconsistently initiating verbal responses to yes/no questions, not consistently following commands, and
unable to use low-tech AAC.
Recommend:
1. IDDSI Level 7 Regular, Thin Liquids
2. Medications: crushed in puree if medically cleared
3. Strategies: upright to 90 degrees, full supervision, assist as needed, small single sips/bites, check for oral clearance
4. Oral care 3x daily
5. Communicate with simple language and yes/no questions with wait time
6. [employer] f/u to assess tolerance of diet, use of compensations, and communication strategies.
[2024-12-16 12:05] LABS: Glucose - Point of Care 126 mg/dl (70-99)
--- NOTE | 2024-12-16 12:49 | W.PN.UPDATE ---
Addendum entered and electronically signed by Rashi Alegre MD 12/16/24 13:36:
Discussed with spouse. Interested in hospice evaluation. Consult case management for hospice
Original Note:
Update Note
Progress Note Update
Patient seen and examined at bedside. Nonbillable note
General: Other (64y M in no evident distress. Awake and makes eye contact. Does not speak or follow commands.)
HEENT: Other (Dry MM. Neck supple. Incision over frontal area healing well.)
Respiratory: Clear; No Wheezes, Rales or Rhonchi
Cardiac: S1/S2 and Regular Rhythm; No Murmur
GI: Soft, Non Tender, Non Distended and Normal Bowel Sounds
Genito-urinary: Other (Diaz in place draining dark urine into leg bag.)
Musculoskeletal: No Edema
Neuro: Awake
N/V
EMANI
- N/V beginning this AM - ? due to hypotension, cessation of dexamethasone, PO abx, etc.
- No emesis since arrival in the ED
- SCr = 1.3 compared to baseline of 0.9.
- IVF support. Antiemetics if needed.
- Hold on further abx for now (see below).
- Follow for any recurrent emesis or other new complaints.
Hypotension
- Likely combination of volume losses and lack of midodrine / dexamethasone.
- Restart usual dexa / midodrine.
- IVFs support as noted above.
- Follow for stability / improvement in BP.
Possible UTI
- Reportedly diagnosed with UTI at [facility] 2-3 days ago.
- Discharged on cefuroxime x 5 additional days.
- Ceftriaxone x 1 dose given in the ED this evening and patient tolerated. Continue with ceftriaxone for now
- UA without evidence of current infection.
- Follow-up repeat culture data.
- Sent to [facility] for review of micro / lab data.
Urinary Retention
- Diaz placed in October due to retention / UTI / sepsis.
- Maintain Diaz.
- Continue finasteride.
DM-II
- Patient with hypoglycemic episode 3 days ago leading to [facility] hospitalization.
- Insulin regimen decreased by about half per discharge instructions.
- Continue basal insulin - increase somewhat.
- Continue mealtime insulin and adjust as needed.
- Follow glucose and cover with SSI as needed.
Glioblastoma
Aphasia
Weakness
- s/p resection of rapidly growing glioblastoma on 10/08/24.
- Persistent aphasia / weakness following surgery.
- PT / OT / Speech evals
- Supportive care.
- Continue dexamethasone as noted above and Keppra for seizure prophylaxis.
Paroxysmal Atrial Fibrillation
- Stable. Continue Eliquis for stroke risk reduction.
DVT Prophylaxis: On Eliquis
Code Status: DNR
Called spouse, left voicemail
[2024-12-16] MEDS: ProAmatine PO (13:51)
[2024-12-16] MEDS: NOVOLOG FLEXPEN-LOW RESISTANCE SC ×2 (13:52→17:27)
[2024-12-16 14:03] LABS: Lactic Acid 1.1 mmol/L (0.7-2.0)
--- NOTE | 2024-12-16 14:12 | CM ---
Addendum entered by Jodee Camacho 12/16/24 16:29:
Pharmacy: [facility] @ [address] [place] [address]
Addendum entered by Jodee Camacho 12/16/24 16:11:
Initial assessment completed with via phone
Patient lives w/; one story home; is primary caregiver
envelope fold operator spoke with patient's ; does not want Hospice at this time
PLOF: prior to UTI, reported that patient was able to ambulate w/ RW w/ assistance; frequent falls
Acute rehab stay @ [facility] this year
PT is recommending Acute Rehab when stable for discharge; if patient does not meet criteria, is agreeable to SNF
SNF Referrals sent to [facility], [facility], [facility], [facility], and [facility]
Discharge plan to be determined; CM will continue to monitor and support when determined
Original Note:
CM Consult completed for Hospice Care Consult; Referral sent to daniel envelope fold operator via text and [facility]
--- NOTE | 2024-12-16 14:43 | HOSPNOTE ---
Hospice referral received. Brandi spoke to the spouse. She would like patient to go for rehab and then transition to hospice at a later date. She is interested in rehab services at [facility]. NELLY and Attending updated.
[2024-12-16 16:28] LABS: Glucose - Point of Care 64 mg/dl (70-99)
[2024-12-16 16:46] LABS: Glucose - Point of Care 76 mg/dl (70-99)
[2024-12-16] MEDS: NOVOLOG FLEXPEN SC (17:27)
[2024-12-16] MEDS: LANTUS SC (17:27)
[2024-12-16] MEDS: CRESTOR 20 MG PO (18:19)
[2024-12-16 18:36] LABS: Glucose - Point of Care 128 mg/dl (70-99)
[2024-12-16 21:24] LABS: Glucose - Point of Care 161 mg/dl (70-99)
[2024-12-16] MEDS: NSS IV (22:02)
[2024-12-16] MEDS: NEURONTIN 100 MG PO (22:02)
[2024-12-16] MEDS: PROSCAR 5 MG PO (22:02)
[2024-12-17] VITALS (7 sets, daily range): BP systolic 118–149; BP diastolic 66–94; BMI 21.8
[2024-12-17 00:12] LABS: Glucose - Point of Care 239 mg/dl (70-99)
[2024-12-17] MEDS: ROCEPHIN 1000 MG IV (00:35)
[2024-12-17] MEDS: STERILE WATER FOR INJECTION 10 ML IV (00:35)
[2024-12-17] MEDS: LANTUS 0.12 UNITS SC (00:38)
[2024-12-17 03:04] LABS: Glucose - Point of Care 181 mg/dl (70-99)
[2024-12-17] MEDS: NSS 1000 IV (04:48)
[2024-12-17 07:10] LABS: % Basophils 0.1 % (0-2); % Eosinophils 0.1 % (0-6); % Lymphocytes 6.6 % (20.5-51.1); % Monocytes 3.8 % (1.7-9.3); % Neutrophils 88.4 % (42.2-75.2); Absolute Immature Granulocytes 0.1 10^3/uL (0-0.05); Absolute Lymphocytes 0.9 10^3/uL (1.2-3.4); Absolute Monocytes 0.5 10^3/uL (0.1-0.6); Absolute Neutrophils 11.7 10^3/uL (1.4-6.5); Hematocrit 37.6 % (39.0-52.0); Hemoglobin 12.6 g/dL (13.0-18.0); Mean Corp Hgb Conc. 33.5 g/dL (33.0-37.0); Mean Corpuscular Hgb 29.9 pg (27.0-31.0); Mean Corpuscular Volume 89.1 fL (80.0-94.0); Mean Platelet Volume 10.8 fL (7.4-10.4); Nucleated Red Blood Cells % 0 % (-); Platelet Count 144 10^3/uL (130-400); Red Blood Cell Count 4.22 10^6/uL (4.70-6.10); Red Cell Dist. Width 14.3 % (11.5-14.5); White Blood Cell Count 13.2 10^3/uL (4.8-10.8)
[2024-12-17 07:16] LABS: ALT (SGPT) 81 U/L (0-50); AST (SGOT) 31 U/L (17-59); Albumin 2.9 g/dl (3.5-5.0); Alkaline Phosphatase 57 U/L (38-126); Blood Urea Nitrogen 27 mg/dl (9-20); Calcium 8.2 mg/dl (8.4-10.2); Carbon Dioxide 25 mmol/L (22-30); Chloride 109 mmol/L (98-107); Estimated Creatinine Clearance 85 ml/min; Glucose 144 mg/dl (70-99); Potassium 4.2 mmol/L (3.5-5.1); Sodium 137 mmol/L (135-145); Total Bilirubin 0.7 mg/dl (0.2-1.3); Total Protein 4.9 g/dl (6.3-8.2); eGFR > 60.00
[2024-12-17 08:48] LABS: Glucose - Point of Care 144 mg/dl (70-99)
[2024-12-17] MEDS: DECADRON 2 MG PO ×2 (09:22→21:22)
[2024-12-17] MEDS: KEPPRA 1000 MG PO ×2 (09:22→21:21)
[2024-12-17] MEDS: LOPRESSOR 12.5 MG PO ×2 (09:23→21:21)
[2024-12-17] MEDS: PROTONIX 40 MG PO (09:25)
[2024-12-17] MEDS: ProAmatine 10 MG PO ×2 (09:26→17:29)
[2024-12-17] MEDS: ELIQUIS 5 MG PO ×2 (09:26→21:21)
[2024-12-17] MEDS: NOVOLOG FLEXPEN 4 UNITS SC ×3 (09:27→17:27)
[2024-12-17] MEDS: NOVOLOG FLEXPEN-LOW RESISTANCE SC (09:28)
[2024-12-17 12:10] LABS: Glucose - Point of Care 223 mg/dl (70-99)
[2024-12-17] MEDS: NOVOLOG FLEXPEN-LOW RESISTANCE 2 UNITS SC (12:13)
[2024-12-17] MEDS: ProAmatine PO (12:13)
--- NOTE | 2024-12-17 12:59 | W.PN.HOSP.TC ---
Today's Communication/Plan
-
Monitor vitals
See plan
Repeat sets of blood culture
PT
Insulin
needs SNF,CM aware
Assessment / Plan
Assessment / Plan
General: Other (64y M in no evident distress. Awake and makes eye contact. Does not speak or follow commands.)
HEENT: Other (Dry MM. Neck supple. Incision over frontal area healing well.)
Respiratory: Clear; No Wheezes, Rales or Rhonchi
Cardiac: S1/S2 and Regular Rhythm; No Murmur
GI: Soft, Non Tender, Non Distended and Normal Bowel Sounds
Genito-urinary: Other (Diaz in place draining dark urine into leg bag.)
Musculoskeletal: No Edema
Neuro: Awake
N/V
EMANI
- N/V beginning this AM - ? due to hypotension, cessation of dexamethasone, PO abx, etc.
- No emesis since arrival in the ED
- SCr = 1.3 compared to baseline of 0.9.
- IVF support. Antiemetics if needed.
- Hold on further abx for now (see below).
- Follow for any recurrent emesis or other new complaints.
Hypotension
- Likely combination of volume losses and lack of midodrine / dexamethasone.
- Restart usual dexa / midodrine.
- IVFs support as noted above.
- Follow for stability / improvement in BP.
Possible UTI
- Reportedly diagnosed with UTI at [facility] 2-3 days ago.
- Discharged on cefuroxime x 5 additional days.
- Ceftriaxone x 1 dose given in the ED this evening and patient tolerated. DC further ceftriaxone
- UA without evidence of current infection.
- Follow-up repeat culture data no growth
2/2 bottles + for gram + cocci in clusters
repeat bcz
ID eval
monitor
Urinary Retention
- Diaz placed in October due to retention / UTI / sepsis.
- Maintain Diaz.
- Continue finasteride.
DM-II
- Patient with hypoglycemic episode 3 days ago leading to [facility] hospitalization.
- Insulin regimen decreased by about half per discharge instructions.
- Continue basal insulin - increase somewhat.
- Continue mealtime insulin and adjust as needed.
- Follow glucose and cover with SSI as needed.
Glioblastoma
Aphasia
Weakness
- s/p resection of rapidly growing glioblastoma on 10/08/24.
- Persistent aphasia / weakness following surgery.
PT
- Supportive care.
- Continue dexamethasone as noted above and Keppra for seizure prophylaxis.
Paroxysmal Atrial Fibrillation
- Stable. Continue Eliquis for stroke risk reduction.
DVT Prophylaxis: On Eliquis
Code Status: DNR
Discussed with spouse, initially she was instructed in speaking with spouse however after speaking to them she is not interested in hospice at this time and wants patient to go to SNF
I spent a total of 52 minutes with the patient or on the floor. More than 50% of this time involved counseling and coordination of care.
Anticipated Discharge: 24 - 48 hours
Subjective/Interval History
-
Date of Service: December 17, 2024
no pain
Objective Data
-
Labs:
Laboratory Results
12/17/24
06:07
WBC 13.2 H
Hgb 12.6 L
Hct 37.6 L
Plt Count 144
Sodium 137
Potassium 4.2
Chloride 109 H
Carbon Dioxide 25
BUN 27 H
Creatinine 0.8
Glucose 144 H
Calcium 8.2 L
Total Bilirubin 0.7
AST 31
ALT 81 H
Alkaline Phosphatase 57
Vital Signs:
Vital Signs
Temp Pulse Resp BP Pulse Ox
98.2 F 71 18 142/66 96
12/17/24 11:11 12/17/24 11:11 12/17/24 11:11 12/17/24 11:11 12/17/24 11:11
I&O
12/16/24 12/17/24 12/18/24
06:59 06:59 06:59
Intake Total 720 / 720
Output Total 450 / 450 1925 / 1925
Balance -450 / -450 -1205 / -1205
--- NOTE | 2024-12-17 14:58 | CM ---
[employer] spoke with [facility] admissions and they state they do not have any beds, next bed will be available next week, case management assistant discussed [facility] [place] but patient's spouse states that she maybe interested in skilled, referrals sent [place],
[facility] and they have denied patient and referral sent to [facility] and will not accept patient's insurance. Filomena Melissa discussed.
Plan; Skilled placement.
--- NOTE | 2024-12-17 15:05 | CON.ID ---
Consultation
-
Date/Time Consultation Requested: December 17, 2024 1301
Date/Time Consultation Performed: December 17, 2024 1510
Requesting Provider: Dr. Rashi Alegre
Performing Provider: Dr. Bailee Ramirez
Reason for Consultation: Bacteremia
Chief Complaint / Past History
Chief Complaint
N/V
History of Present Illness
History obtained from review medical records since patient has expressive aphasia. He is a 64-year-old male with diabetes mellitus, history of CVA, recent diagnosis of high-grade glioblastoma status post left-sided craniotomy resection of tumor
October 08, 2024 at [facility],recent Enterobacter cloacae complicated UTI from urinary retention requiring Diaz placement, recently discharged from [facility] rehab in December 02. Unfortunately repeat brain MRI showed recurrence of the glioblastoma. He was
recently hospitalized for 2 days at outside hospital for hide for hypoglycemic episode. At discharge and during the ride home patient developed nausea and vomiting and therefore she brought him to the ER December 15. Afebrile. Urine culture negative.
Blood culture 1 out of 2 gram-positive bacilli. Patient denies fevers or chills. Nausea resolved. Appetite is poor. No flank pain.
Past History
Additional Past Medical History:
Recent diagnosis brain high-grade glioblastoma status post left-sided craniotomy, resection of tumor October 08, 2024 at [facility], with extensive recurrence
Expressive aphasia
Diabetes mellitus
CVA
CKD3
Urinary retention with chronic indwelling Diaz catheter
Afib on Eliquis
Orthostatic hypotension
HLD
Gout
Nephrolithiasis
Left hand surgery
Allergy History:
No Known Allergies Allergy (Verified 03/24/23 08:35)
Medications Reviewed: Yes
Current Antibiotics:
Status post 2 doses of ceftriaxone
Social History
Tobacco: Non-Smoker
Alcohol: None
Drug: None
Personal:
Family History
Family History: Not Pertinent
Review of Systems
Review of Systems
General: Negative Fever or Chills
HEENT: Negative Sinus Problems or Headache
Respiratory: Negative Dyspnea or Cough
Gasteroenterology: Negative Diarrhea
Genital / Urological: Negative Flank Pain
Endocrine: Weakness
All systems: All other systems were reviewed and were negative
Vital Signs
Temp Pulse Resp BP Pulse Ox
98.0 F 64 16 135/71 97
12/17/24 14:43 12/17/24 14:43 12/17/24 14:43 12/17/24 14:43 12/17/24 14:43
Physical Exam
Physical Exam
Constitutional: Chronically Ill and Cachetic
Head: Other (No frontal max or sinus tenderness)
Eyes: No Conjunctival Hemorrhage and Sclera Anicteric
Cardiovascular: Regular Rate and S1/S2
Pulmonary: Clear
Gastrointestinal: Soft, Non Tender, Non Distended and Normal Bowel Sounds
Genito-Urinary: Diaz and Clear Urine
Extremities: Negative Edema
Neurological: Other (Expressive aphasia); Negative Meningeal Signs
Lab / Diagnostic Study Results
12/17/24 06:07
12/17/24 06:07
Abs Immat Gran (auto) 0.1 10^3/uL (0-0.05) H 12/17/24 06:07
Absolute Neuts (auto) 11.7 10^3/uL (1.4-6.5) H 12/17/24 06:07
Absolute Lymphs (auto) 0.9 10^3/uL (1.2-3.4) L 12/17/24 06:07
Absolute Monos (auto) 0.5 10^3/uL (0.1-0.6) 12/17/24 06:07
Absolute Basos (auto) 0.0 10^3/uL (0-0.2) 12/17/24 06:07
Immature Gran % 1.0 % (0-0.5) H 12/17/24 06:07
Neutrophils % 88.4 % (42.2-75.2) H 12/17/24 06:07
Lymphocytes % 6.6 % (20.5-51.1) L 12/17/24 06:07
Monocytes % 3.8 % (1.7-9.3) 12/17/24 06:07
Eosinophils % 0.1 % (0-6) 12/17/24 06:07
Basophils % 0.1 % (0-2) 12/17/24 06:07
Lactic Acid 1.1 mmol/L (0.7-2.0) 12/16/24 13:39
Ur Squamous Epith Cells 3-5 /LPF (Few) 12/16/24 00:09
Microbiology Results
Micro:
12/17/24 11:04 Blood Culture - Pending
Blood/Venous
12/17/24 10:37 Blood Culture - Pending
Blood/Venous
12/16/24 00:09 Blood Culture - Preliminary
Blood/Venous Positive culture in progress
Gram Stain - Preliminary
12/16/24 00:16 Blood Culture - Preliminary
Blood/Venous Staphylococcus epidermidis
Gram Stain - Preliminary
12/16/24 00:09 Urine Culture - Final
Urine NO GROWTH
12/16/24 05:34 MRSA Screen - Final
Nose No Methicillin Resistant Staphylococcus aureus isolated.
12/16/24 CXR: No acute cardiopulmonary process.
12/09/24 Brain MRI: EXTENSIVE RECURRENT GLIOBLASTOMA MULTIFORM with a large amount of intra-axial malignancy along the medial and posterior margins of the left frontal lobe cavity, a large 4.8 cm tumor in the right frontal lobe, and extension of
malignancy inferiorly through the left insular cortex and into the left temporal lobe which has progressed since 10/04/2024.
2. Interval left frontal craniotomy and left frontal lobe tumor resection with a large 6.8 cm surgical cavity in the left frontal lobe.
3. Chronic ischemic infarcts in the medial left parietal lobe, medial left occipital lobe, left thalamus, and right cerebellar hemisphere.
4. Moderate distention of the lateral ventricles suggesting a partial obstruction at the foramen of Richardson caused by mild left to right midline shift and tumor around the frontal horns of the lateral ventricles.
Assessment / Plan
#Coag negative staph bacteremia x 2 sets = contaminants
-Observe off of antibiotic
- Follow repeat bcx's
# Leukocytosis due to dexamethasone
# Urinary retention with chronic Diaz, urine culture negative
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
- Poor prognosis
- For hospice evaluation.
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
Recent diagnosis brain high-grade glioblastoma status post left-sided craniotomy, resection of tumor October 08, 2024 at [facility], with extensive recurrence
Expressive aphasia
Diabetes mellitus
CVA
CKD3
Urinary retention with chronic indwelling Diaz catheter
Afib on Eliquis
Orthostatic hypotension
HLD
Gout
Nephrolithiasis
Left hand surgery
--- NOTE | 2024-12-17 15:33 | PN.CDI ---
CDI
- -
CDI:
Physician Documentation Request
Admit Date: 12/16/24 04:07
Dear Doctor,
Please review the following and provide your response in the progress notes.
Clinical Indicators:
Pt admitted with EMANI, Hypotension, and possible UTI.
12/15 RN Initial Assessment in Wound panel noted stage 1 sacral pressure injury.
Physician documentation of the type and location of wounds is required for compliant documentation. Based on the above clinical findings and your assessment, please provide the following in your progress note:
1. Location of the ulcer/wound, including laterality.
2. Type (etiology) of ulcer/wound:
Sacral Pressure injury POA
Sacral non-pressure injury POA
Other
Use of terms such as suspected, likely, concern for, or probable (associated with a specific diagnosis that is being evaluated, monitored, or treated as if it exists) are acceptable and can be coded in the inpatient setting, when documented at the
time of discharge.
Thank you,
Maria Story RN, BSN
CDI Specialist
[place] [facility]
Please use your independent medical judgment in providing your response.
*Source: National Pressure Ulcer Advisory Panel (NPUAP)
[2024-12-17 17:09] LABS: Glucose - Point of Care 160 mg/dl (70-99)
[2024-12-17] MEDS: NOVOLOG FLEXPEN-LOW RESISTANCE 1 UNITS SC (17:27)
[2024-12-17] MEDS: CRESTOR 20 MG PO (17:29)
[2024-12-17 21:18] LABS: Glucose - Point of Care 156 mg/dl (70-99)
[2024-12-17] MEDS: PROSCAR 5 MG PO (21:21)
[2024-12-17] MEDS: LANTUS 0.1 UNITS SC (21:22)
[2024-12-17] MEDS: NEURONTIN 100 MG PO (21:22)
[2024-12-18 03:23] VITALS: BP 136/79
[2024-12-18 06:00] VITALS: BMI 21.0
[2024-12-18] MEDS: DECADRON 2 MG PO ×2 (07:48→19:40)
[2024-12-18] MEDS: ELIQUIS 5 MG PO ×2 (07:48→19:41)
[2024-12-18] MEDS: KEPPRA 1000 MG PO ×2 (07:48→19:41)
[2024-12-18] MEDS: LOPRESSOR 12.5 MG PO ×2 (07:48→19:41)
[2024-12-18] MEDS: PROTONIX 40 MG PO (07:48)
[2024-12-18] MEDS: ProAmatine 10 MG PO ×3 (07:48→17:16)
[2024-12-18 07:50] VITALS: BP 124/77
[2024-12-18] MEDS: NOVOLOG FLEXPEN 4 UNITS SC ×3 (07:51→17:16)
[2024-12-18] MEDS: NOVOLOG FLEXPEN-LOW RESISTANCE 2 UNITS SC (07:51)
[2024-12-18 08:00] LABS: Glucose - Point of Care 202 mg/dl (70-99)
[2024-12-18 08:35] LABS: % Basophils 0.2 % (0-2); % Eosinophils 0.1 % (0-6); % Immature Granulocytes 0.9 % (0-0.5); % Lymphocytes 7.9 % (20.5-51.1); % Monocytes 3.6 % (1.7-9.3); % Neutrophils 87.3 % (42.2-75.2); Absolute Immature Granulocytes 0.1 10^3/uL (0-0.05); Absolute Lymphocytes 0.9 10^3/uL (1.2-3.4); Absolute Monocytes 0.4 10^3/uL (0.1-0.6); Absolute Neutrophils 10.2 10^3/uL (1.4-6.5); Hematocrit 38.5 % (39.0-52.0); Hemoglobin 13.1 g/dL (13.0-18.0); Mean Corpuscular Hgb 29.9 pg (27.0-31.0); Mean Corpuscular Volume 87.9 fL (80.0-94.0); Mean Platelet Volume 10.8 fL (7.4-10.4); Nucleated Red Blood Cells % 0 % (-); Platelet Count 156 10^3/uL (130-400); Red Blood Cell Count 4.38 10^6/uL (4.70-6.10); Red Cell Dist. Width 14.1 % (11.5-14.5); White Blood Cell Count 11.7 10^3/uL (4.8-10.8)
[2024-12-18 09:06] LABS: ALT (SGPT) 113 U/L (0-50); AST (SGOT) 46 U/L (17-59); Albumin 3.4 g/dl (3.5-5.0); Alkaline Phosphatase 67 U/L (38-126); Blood Urea Nitrogen 25 mg/dl (9-20); Calcium 8.6 mg/dl (8.4-10.2); Carbon Dioxide 26 mmol/L (22-30); Chloride 105 mmol/L (98-107); Estimated Creatinine Clearance 93 ml/min; Glucose 219 mg/dl (70-99); Potassium 4.3 mmol/L (3.5-5.1); Sodium 134 mmol/L (135-145); Total Bilirubin 0.8 mg/dl (0.2-1.3); Total Protein 5.4 g/dl (6.3-8.2); eGFR > 60.00
[2024-12-18 11:33] VITALS: BP 96/58
[2024-12-18 11:48] LABS: Glucose - Point of Care 187 mg/dl (70-99)
[2024-12-18] MEDS: NOVOLOG FLEXPEN-LOW RESISTANCE 1 UNITS SC (12:01)
--- NOTE | 2024-12-18 12:19 | W.PN.HOSP.TC ---
Addendum entered and electronically signed by Rashi Alegre MD 12/18/24 12:31:
stage 1 sacral pressure injury
Original Note:
Today's Communication/Plan
-
monitor vitals
see plan
follow bcx
needs placement; CM aware
called spouse, left voicemail
Assessment / Plan
Assessment / Plan
General: Other (64y M in no evident distress. Awake and makes eye contact. Does not speak or follow commands.)
HEENT: Other (Dry MM. Neck supple. Incision over frontal area healing well.)
Respiratory: Clear; No Wheezes, Rales or Rhonchi
Cardiac: S1/S2 and Regular Rhythm; No Murmur
GI: Soft, Non Tender, Non Distended and Normal Bowel Sounds
Genito-urinary: Other (Diaz in place draining dark urine into leg bag.)
Musculoskeletal: No Edema
Neuro: Awake
N/V
EMANI
- N/V beginning this AM - ? due to hypotension, cessation of dexamethasone, PO abx, etc.
- No emesis since arrival in the ED
- SCr = 1.3 compared to baseline of 0.9.
- IVF support. Antiemetics if needed.
- Hold on further abx for now (see below).
- Follow for any recurrent emesis or other new complaints.
Hypotension
- Likely combination of volume losses and lack of midodrine / dexamethasone.
- Restart usual dexa / midodrine.
- IVFs support as noted above.
- Follow for stability / improvement in BP.
Possible UTI
- Reportedly diagnosed with UTI at [facility] 2-3 days ago.
- Discharged on cefuroxime x 5 additional days.
- Ceftriaxone x 1 dose given in the ED this evening and patient tolerated. DC further ceftriaxone
- UA without evidence of current infection.
- Follow-up repeat culture data no growth
2/2 bottles + for gram + cocci in clusters
Likely contaminant
repeat bcx
ID following
monitor
Urinary Retention
- Diaz placed in October due to retention / UTI / sepsis.
- Maintain Diaz.
- Continue finasteride.
DM-II
- Patient with hypoglycemic episode 3 days ago leading to [facility] hospitalization.
- Insulin regimen decreased by about half per discharge instructions.
- Continue basal insulin - increase somewhat.
- Continue mealtime insulin and adjust as needed.
- Follow glucose and cover with SSI as needed.
Glioblastoma
Aphasia
Weakness
- s/p resection of rapidly growing glioblastoma on 10/08/24.
- Persistent aphasia / weakness following surgery.
PT
- Supportive care.
- Continue dexamethasone as noted above and Keppra for seizure prophylaxis.
Paroxysmal Atrial Fibrillation
- Stable. Continue Eliquis for stroke risk reduction.
DVT Prophylaxis: On Eliquis
Code Status: DNR
Discussed with spouse, initially she was instructed in speaking with spouse however after speaking to them she is not interested in hospice at this time and wants patient to go to SNF
Anticipated Discharge: Within 24 hours
Subjective/Interval History
-
Date of Service: December 18, 2024
no pain
Objective Data
-
Labs:
Laboratory Results
12/18/24
07:52
WBC 11.7 H
Hgb 13.1
Hct 38.5 L
Plt Count 156
Sodium 134 L
Potassium 4.3
Chloride 105
Carbon Dioxide 26
BUN 25 H
Creatinine 0.7
Glucose 219 H
Calcium 8.6
Total Bilirubin 0.8
AST 46
ALT 113 H
Alkaline Phosphatase 67
Vital Signs:
Vital Signs
Temp Pulse Resp BP Pulse Ox
98 F 65 20 97/62 97
12/18/24 11:33 12/18/24 12:01 12/18/24 11:33 12/18/24 12:01 12/18/24 11:33
I&O
12/17/24 12/18/24 12/19/24
06:59 06:59 06:59
Intake Total 720 / 720 240 / 240
Output Total 1925 / 192 3075 / 3075
Balance -1205 / -1205 -2835 / -2835
--- NOTE | 2024-12-18 12:30 | CM ---
Chart reviewed. Need skilled placement. [facility] accepted
CM will review w/ spouse
[2024-12-18 15:28] VITALS: BP 96/44
[2024-12-18 16:37] LABS: Glucose - Point of Care 112 mg/dl (70-99)
[2024-12-18] MEDS: NOVOLOG FLEXPEN-LOW RESISTANCE SC (16:39)
[2024-12-18] MEDS: CRESTOR 20 MG PO (17:16)
[2024-12-18 19:39] VITALS: BP 113/67
[2024-12-18 21:39] LABS: Glucose - Point of Care 239 mg/dl (70-99)
[2024-12-18] MEDS: NEURONTIN 100 MG PO (21:47)
[2024-12-18] MEDS: LANTUS 0.1 UNITS SC (21:47)
[2024-12-18] MEDS: PROSCAR 5 MG PO (21:47)
[2024-12-18 23:06] VITALS: BP 118/69
[2024-12-19 03:43] VITALS: BP 109/58
[2024-12-19 06:00] VITALS: BMI 20.7
[2024-12-19 07:00] VITALS: BP 117/69
[2024-12-19 07:21] LABS: Glucose - Point of Care 133 mg/dl (70-99)
[2024-12-19 08:00] LABS: % Basophils 0.1 % (0-2); % Eosinophils 0.1 % (0-6); % Immature Granulocytes 1.2 % (0-0.5); % Lymphocytes 12.3 % (20.5-51.1); % Monocytes 5.6 % (1.7-9.3); % Neutrophils 80.7 % (42.2-75.2); Absolute Immature Granulocytes 0.1 10^3/uL (0-0.05); Absolute Lymphocytes 1.3 10^3/uL (1.2-3.4); Absolute Monocytes 0.6 10^3/uL (0.1-0.6); Absolute Neutrophils 8.7 10^3/uL (1.4-6.5); Hematocrit 40.8 % (39.0-52.0); Hemoglobin 13.6 g/dL (13.0-18.0); Mean Corp Hgb Conc. 33.3 g/dL (33.0-37.0); Mean Corpuscular Hgb 29.6 pg (27.0-31.0); Mean Corpuscular Volume 88.7 fL (80.0-94.0); Mean Platelet Volume 10.4 fL (7.4-10.4); Nucleated Red Blood Cells % 0 % (-); Platelet Count 167 10^3/uL (130-400); Red Cell Dist. Width 14.4 % (11.5-14.5); White Blood Cell Count 10.8 10^3/uL (4.8-10.8)
[2024-12-19 08:14] LABS: ALT (SGPT) 187 U/L (0-50); AST (SGOT) 82 U/L (17-59); Albumin 3.5 g/dl (3.5-5.0); Alkaline Phosphatase 70 U/L (38-126); Blood Urea Nitrogen 26 mg/dl (9-20); Calcium 8.9 mg/dl (8.4-10.2); Carbon Dioxide 25 mmol/L (22-30); Chloride 104 mmol/L (98-107); Estimated Creatinine Clearance 81 ml/min; Glucose 120 mg/dl (70-99); Sodium 135 mmol/L (135-145); Total Bilirubin 0.7 mg/dl (0.2-1.3); Total Protein 5.6 g/dl (6.3-8.2); eGFR > 60.00
[2024-12-19] MEDS: PROTONIX 40 MG PO (08:17)
[2024-12-19] MEDS: ProAmatine 10 MG PO ×3 (08:18→16:31)
[2024-12-19] MEDS: DECADRON 2 MG PO ×2 (08:18→19:56)
[2024-12-19] MEDS: LOPRESSOR 12.5 MG PO ×2 (08:18→19:56)
[2024-12-19] MEDS: ELIQUIS 5 MG PO ×2 (08:18→19:56)
[2024-12-19] MEDS: KEPPRA 1000 MG PO ×2 (08:18→19:56)
[2024-12-19] MEDS: NOVOLOG FLEXPEN-LOW RESISTANCE SC ×3 (08:19→16:27)
[2024-12-19] MEDS: NOVOLOG FLEXPEN 4 UNITS SC ×3 (08:19→16:28)
[2024-12-19 11:04] VITALS: BP 95/59
--- NOTE | 2024-12-19 11:30 | W.PN.HOSP.TC ---
Today's Communication/Plan
-
Monitor vital signs see plan
Hold rosuvastatin
Monitor LFTs
Discharge planning
Follow cultures
Assessment / Plan
Assessment / Plan
General: Other (64y M in no evident distress. Awake and makes eye contact. Does not speak or follow commands.)
HEENT: Other (Dry MM. Neck supple. Incision over frontal area healing well.)
Respiratory: Clear; No Wheezes, Rales or Rhonchi
Cardiac: S1/S2 and Regular Rhythm; No Murmur
GI: Soft, Non Tender, Non Distended and Normal Bowel Sounds
Genito-urinary: Other (Diaz in place.)
Musculoskeletal: No Edema
Neuro: Awake
N/V
EMANI
- N/V beginning - ? due to hypotension, cessation of dexamethasone, PO abx, etc. now resolved
- No emesis since arrival in the ED
- SCr = 1.3 compared to baseline of 0.9.
- IVF support. Antiemetics if needed.
- Hold on further abx for now (see below).
- Follow for any recurrent emesis or other new complaints.
Hypotension
- Likely combination of volume losses and lack of midodrine / dexamethasone.
- Restart usual dexa / midodrine.
- Follow for stability / improvement in BP.
Possible UTI
- Reportedly diagnosed with UTI at [facility] 2-3 days ago.
- Discharged on cefuroxime x 5 additional days.
- Ceftriaxone x 1 dose given in the ED this evening and patient tolerated. DC further ceftriaxone
- UA without evidence of current infection.
- Follow-up repeat culture data no growth
2/2 bottles + for gram + cocci in clusters
Likely contaminant
repeat bcx NGTD
ID following
monitor
Urinary Retention
- Diaz placed in October due to retention / UTI / sepsis.
- Maintain Diaz.
- Continue finasteride.
DM-II
- Patient with hypoglycemic episode 3 days ago leading to [facility] hospitalization.
- Insulin regimen decreased by about half per discharge instructions.
- Continue basal insulin - increase somewhat.
- Continue mealtime insulin and adjust as needed.
- Follow glucose and cover with SSI as needed.
Glioblastoma
Aphasia
Weakness
- s/p resection of rapidly growing glioblastoma on 10/08/24.
- Persistent aphasia / weakness following surgery.
PT
- Supportive care.
- Continue dexamethasone as noted above and Keppra for seizure prophylaxis.
Elevated LFTs
hold rosuvastatin
Paroxysmal Atrial Fibrillation
- Stable. Continue Eliquis for stroke risk reduction.
stage 1 sacral pressure injury
DVT Prophylaxis: On Eliquis
Code Status: DNR
Discussed with spouse, initially she was instructed in speaking with spouse however after speaking to them she is not interested in hospice at this time and wants patient to go to SNF. CM working on rehab
Anticipated Discharge: Within 24 hours
Subjective/Interval History
-
Date of Service: December 19, 2024
denies pain
Objective Data
-
Labs:
Laboratory Results
12/19/24
07:08
WBC 10.8
Hgb 13.6
Hct 40.8
Plt Count 167
Sodium 135
Potassium 4.0
Chloride 104
Carbon Dioxide 25
BUN 26 H
Creatinine 0.8
Glucose 120 H
Calcium 8.9
Total Bilirubin 0.7
AST 82 H
ALT 187 H
Alkaline Phosphatase 70
Vital Signs:
Vital Signs
Temp Pulse Resp BP Pulse Ox
98.4 F 66 16 95/59 97
12/19/24 11:04 12/19/24 11:04 12/19/24 11:04 12/19/24 11:04 12/19/24 11:04
I&O
12/18/24 12/19/24 12/20/24
06:59 06:59 06:59
Intake Total 240 / 240 350 / 350
Output Total 3075 / 3075 1850 / 1850
Balance -2835 / -2835 -1500 / -1500
[2024-12-19 11:44] LABS: Glucose - Point of Care 128 mg/dl (70-99)
--- NOTE | 2024-12-19 12:08 | W.PN.ID1 ---
Date of Service
Date of Service: December 19, 2024
Today's Communication
ID will sign off.
Assessment / Plan
#Coag negative staph bacteremia x 2 sets = contaminants
- Repeat bcx's neg.
-No need for abx.
# Leukocytosis due to dexamethasone, trending down
# Urinary retention with chronic Diaz, urine culture negative
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
- Poor prognosis
ID will sign off.
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
Recent diagnosis brain high-grade glioblastoma status post left-sided craniotomy, resection of tumor October 08, 2024 at [facility], with extensive recurrence
Expressive aphasia
Diabetes mellitus
CVA
CKD3
Urinary retention with chronic indwelling Diaz catheter
Afib on Eliquis
Orthostatic hypotension
HLD
Gout
Nephrolithiasis
Left hand surgery
Vital Signs / Physical Exam
Vital Signs
Vital Signs
Temp Pulse Resp BP Pulse Ox
98.4 F 66 16 95/59 97
12/19/24 11:04 12/19/24 11:48 12/19/24 11:04 12/19/24 11:48 12/19/24 11:04
Physical Exam
Constitutional: Chronically Ill
Cardiovascular: Regular Rate and S1/S2
Pulmonary: Clear
Gastrointestinal: Soft, Non Tender and Non Distended
Genito-Urinary: Diaz and Clear Urine
Extremities: Negative Edema
Neurological: Awake
Objective Data
Lab Data
Lab Results
12/19/24 07:08
12/19/24 07:08
Estimated Creat Clear 81 ml/min 12/19/24 07:08
Lactic Acid 1.1 mmol/L (0.7-2.0) 12/16/24 13:39
Total Bilirubin 0.7 mg/dl (0.2-1.3) 12/19/24 07:08
AST 82 U/L (17-59) H 12/19/24 07:08
ALT 187 U/L (0-50) H 12/19/24 07:08
Alkaline Phosphatase 70 U/L (38-126) 12/19/24 07:08
Most recent labs reviewed.
Micro Results:
12/17/24 11:04 Blood Culture - Preliminary
Blood/Venous No Growth in 48 hours- Final report to follow
12/17/24 10:37 Blood Culture - Preliminary
Blood/Venous No Growth in 48 hours- Final report to follow
12/16/24 00:16 Blood Culture - Preliminary
Blood/Venous Staphylococcus epidermidis
Gram Stain - Preliminary
12/16/24 00:09 Blood Culture - Preliminary
Blood/Venous Staphylococcus epidermidis
Gram Stain - Preliminary
12/16/24 00:09 Urine Culture - Final
Urine NO GROWTH
12/16/24 05:34 MRSA Screen - Final
Nose No Methicillin Resistant Staphylococcus aureus isolated.
12/16/24 CXR: No acute cardiopulmonary process.
12/09/24 Brain MRI: EXTENSIVE RECURRENT GLIOBLASTOMA MULTIFORM with a large amount of intra-axial malignancy along the medial and posterior margins of the left frontal lobe cavity, a large 4.8 cm tumor in the right frontal lobe, and extension of
malignancy inferiorly through the left insular cortex and into the left temporal lobe which has progressed since 10/04/2024.
2. Interval left frontal craniotomy and left frontal lobe tumor resection with a large 6.8 cm surgical cavity in the left frontal lobe.
3. Chronic ischemic infarcts in the medial left parietal lobe, medial left occipital lobe, left thalamus, and right cerebellar hemisphere.
4. Moderate distention of the lateral ventricles suggesting a partial obstruction at the foramen of Richardson caused by mild left to right midline shift and tumor around the frontal horns of the lateral ventricles.
Care Review
Plan reviewed with: Physician (Dr. Rashi Alegre)
[2024-12-19 15:00] VITALS: BP 120/65
[2024-12-19 16:28] LABS: Glucose - Point of Care 145 mg/dl (70-99)
[2024-12-19 19:00] VITALS: BP 119/64
[2024-12-19 21:35] LABS: Glucose - Point of Care 176 mg/dl (70-99)
[2024-12-19] MEDS: PROSCAR 5 MG PO (21:40)
[2024-12-19] MEDS: LANTUS 0.1 UNITS SC (21:40)
[2024-12-19] MEDS: NEURONTIN 100 MG PO (21:41)
[2024-12-19 23:00] VITALS: BP 104/63
[2024-12-20] VITALS (7 sets, daily range): BP systolic 92–110; BP diastolic 54–64; PULSE 70; O2SAT 100; BMI 20.9
[2024-12-20 07:41] LABS: Glucose - Point of Care 175 mg/dl (70-99)
[2024-12-20 07:57] LABS: % Basophils 0.2 % (0-2); % Eosinophils 0.1 % (0-6); % Immature Granulocytes 1.8 % (0-0.5); % Lymphocytes 11.7 % (20.5-51.1); % Monocytes 5.8 % (1.7-9.3); % Neutrophils 80.4 % (42.2-75.2); Absolute Immature Granulocytes 0.2 10^3/uL (0-0.05); Absolute Lymphocytes 1.3 10^3/uL (1.2-3.4); Absolute Monocytes 0.6 10^3/uL (0.1-0.6); Absolute Neutrophils 8.7 10^3/uL (1.4-6.5); Hematocrit 40.2 % (39.0-52.0); Hemoglobin 13.6 g/dL (13.0-18.0); Mean Corp Hgb Conc. 33.8 g/dL (33.0-37.0); Mean Corpuscular Hgb 30.4 pg (27.0-31.0); Mean Corpuscular Volume 89.7 fL (80.0-94.0); Mean Platelet Volume 10.7 fL (7.4-10.4); Nucleated Red Blood Cells % 0 % (-); Platelet Count 165 10^3/uL (130-400); Red Blood Cell Count 4.48 10^6/uL (4.70-6.10); Red Cell Dist. Width 14.6 % (11.5-14.5); White Blood Cell Count 10.8 10^3/uL (4.8-10.8)
[2024-12-20] MEDS: ProAmatine 10 MG PO ×3 (08:09→17:42)
[2024-12-20] MEDS: KEPPRA 1000 MG PO (08:09)
[2024-12-20] MEDS: NOVOLOG FLEXPEN 4 UNITS SC ×3 (08:09→17:43)
[2024-12-20] MEDS: ELIQUIS 5 MG PO (08:09)
[2024-12-20] MEDS: PROTONIX 40 MG PO (08:09)
[2024-12-20] MEDS: LOPRESSOR 12.5 MG PO (08:09)
[2024-12-20] MEDS: DECADRON 2 MG PO (08:09)
[2024-12-20] MEDS: NOVOLOG FLEXPEN-LOW RESISTANCE 1 UNITS SC (08:10)
[2024-12-20 08:54] LABS: ALT (SGPT) 219 U/L (0-50); AST (SGOT) 70 U/L (17-59); Albumin 3.3 g/dl (3.5-5.0); Alkaline Phosphatase 78 U/L (38-126); Blood Urea Nitrogen 29 mg/dl (9-20); Calcium 8.7 mg/dl (8.4-10.2); Carbon Dioxide 27 mmol/L (22-30); Chloride 103 mmol/L (98-107); Estimated Creatinine Clearance 72 ml/min; Glucose 169 mg/dl (70-99); Potassium 4.2 mmol/L (3.5-5.1); Sodium 135 mmol/L (135-145); Total Bilirubin 0.7 mg/dl (0.2-1.3); Total Protein 5.3 g/dl (6.3-8.2); eGFR > 60.00
[2024-12-20] MEDS: NOVOLOG FLEXPEN-LOW RESISTANCE SC ×2 (11:55→16:40)
[2024-12-20 11:56] LABS: Glucose - Point of Care 141 mg/dl (70-99)
--- NOTE | 2024-12-20 11:56 | W.PN.HOSP.TC ---
Addendum entered and electronically signed by Rashi Alegre MD 12/27/24 08:23:
Orthostatic Hypotension only
Addendum entered and electronically signed by Rashi Alegre MD 12/20/24 15:05:
Time of discharge 37 minutes
Original Note:
Today's Communication/Plan
-
Monitor vital signs see plan
Monitor LFTs
Pending placement, rehabilitation case coordinator aware
Discussed with spouse over the phone
Assessment / Plan
Assessment / Plan
General: Other (64y M in no evident distress. Awake and makes eye contact. Does not speak or follow commands.)
HEENT: Other (Dry MM. Neck supple. Incision over frontal area healing well.)
Respiratory: Clear; No Wheezes, Rales or Rhonchi
Cardiac: S1/S2 and Regular Rhythm; No Murmur
GI: Soft, Non Tender, Non Distended and Normal Bowel Sounds
Genito-urinary: Other (Diaz in place.)
Musculoskeletal: No Edema
Neuro: Awake
N/V
EMANI
- N/V beginning - ? due to hypotension, cessation of dexamethasone, PO abx, etc. now resolved
- No emesis since arrival in the ED
- SCr = 1.3 compared to baseline of 0.9.
- Antiemetics if needed.
- Hold on further abx for now (see below).
- Follow for any recurrent emesis or other new complaints.
Hypotension
- Likely combination of volume losses and lack of midodrine / dexamethasone.
- Restart usual dexa / midodrine.
- Follow for stability / improvement in BP.
Possible UTI
- Reportedly diagnosed with UTI at [facility] 2-3 days ago.
- Discharged on cefuroxime x 5 additional days.
- Ceftriaxone x 1 dose given in the ED this evening and patient tolerated. DC further ceftriaxone
- UA without evidence of current infection.
- Follow-up repeat culture data no growth
2/2 bottles + for gram + cocci in clusters
Likely contaminant
repeat bcx NGTD
ID following
monitor
Urinary Retention
- Diaz placed in October due to retention / UTI / sepsis.
- Maintain Diaz.
- Continue finasteride.
DM-II
- Patient with hypoglycemic episode 3 days ago leading to [facility] hospitalization.
- Insulin regimen decreased by about half per discharge instructions.
- Continue basal insulin - increase somewhat.
- Continue mealtime insulin and adjust as needed.
- Follow glucose and cover with SSI as needed.
Glioblastoma
Aphasia
Weakness
- s/p resection of rapidly growing glioblastoma on 10/08/24.
- Persistent aphasia / weakness following surgery.
PT
- Supportive care.
- Continue dexamethasone as noted above and Keppra for seizure prophylaxis.
Elevated LFTs
hold rosuvastatin
No abdominal pain, normal bili
Paroxysmal Atrial Fibrillation
- Stable. Continue Eliquis for stroke risk reduction.
stage 1 sacral pressure injury
DVT Prophylaxis: On Eliquis
Code Status: DNR
Discussed with spouse, initially she was instructed in speaking with spouse however after speaking to them she is not interested in hospice at this time and wants patient to go to SNF. CM working on rehab
Anticipated Discharge: Today
Subjective/Interval History
-
Date of Service: December 20, 2024
no pain
Objective Data
-
Labs:
Laboratory Results
12/20/24
07:25
WBC 10.8
Hgb 13.6
Hct 40.2
Plt Count 165
Sodium 135
Potassium 4.2
Chloride 103
Carbon Dioxide 27
BUN 29 H
Creatinine 0.9
Glucose 169 H
Calcium 8.7
Total Bilirubin 0.7
AST 70 H
ALT 219 H
Alkaline Phosphatase 78
Vital Signs:
Vital Signs
Temp Pulse Resp BP Pulse Ox
98.2 F 71 16 92/54 96
12/20/24 11:21 12/20/24 11:21 12/20/24 11:21 12/20/24 11:21 12/20/24 11:21
I&O
12/19/24 12/20/24 12/21/24
06:59 06:59 06:59
Intake Total 350 / 350 925 / 925 420 / 420
Output Total 1850 / 1850 1700 / 1700 500 / 500
Balance -1500 / -1500 -775 / -775 -80 / -80
--- NOTE | 2024-12-20 13:13 | CM ---
Addendum entered by Georgia Escalante 12/20/24 15:01:
Per Miryam at [facility] patient has been approved for 3 days skilled Auth [id number] NRD 12/22, with [place] [phone], . Ambulance transport today.
Original Note:
mid level project manager reviewed patient's chart and patient has been accepted at [facility], patient's spouse is agreeable to [facility], physical therapy made aware that patient needs updated notes today in order to obtain Auth from [facility] PPO.
Per admissions at [facility] they have a bed today.
[facility]
Dr. So [phone]
[facility]
Report [phone]
--- NOTE | 2024-12-20 15:05 | W.DCSUMMARY ---
Discharge Summary
Discharge Data
Date of Admission: 12/16/24
Date of Discharge: 12/20/24
-
Pending Results: No
Hospital Course
64-year-old male with past medical history of diabetes mellitus, glioblastoma status post surgery, aphasia, amatory dysfunction, paroxysmal atrial fibrillation came to the hospital with intractable nausea vomiting and acute kidney injury likely
secondary to dehydration and hypotension. Patient symptoms continue to improve over time. Initially patient was also thought to have urinary tract infection however UA was without any evidence of current infection. Antibiotics was then
discontinued. On this hospitalization patient blood culture from admission was positive for staph epi which was likely thought was contaminant. Repeat blood cultures were negative. Patient was seen by infectious disease throughout
hospitalization. On this hospitalization he also had elevated LFTs however did not have any abdominal pain and bilirubin was normal. His rosuvastatin was held and he was instructed to follow-up with repeat CMP done outpatient. Given patient poor
prognosis with glioblastoma, hospice was recommended however patient's spouse was not ready at this time and wanted patient to go to rehab. Once patient's symptoms continue to improve and he had rehab placement, he was then discharged to rehab with
instructions to follow-up with all his physicians outpatient.
Discharge Plan
-
Patient Disposition: Penitentiary/SNF
Discharge Diagnosis/Procedures: Acute kidney injury
Memory dysfunction
Staph epidermidis bacteremia likely contaminant
History of glioblastoma status post surgery
Baseline aphasia
Elevated LFTs
Condition: Fair
Diet: Diabetic, Carb Controlled
Activity: As tolerated
Driving Restrictions: No driving
Blood Work: CMP later this week with primary care provider or at SNF
Referrals:
Kurt Fuchs MD [Family Provider, Internal Medicine]
Prescriptions:
New
insulin aspart U-100 100 unit/mL (3 mL) Insulin Pen
4 unit SC AC Qty: 0 0RF
Continued
melatonin 5 mg Tablet
5 mg PO HS
acetaminophen 325 mg tablet
325 mg PO Q6HPRN PRN (Reason: mild Pain)
zinc oxide 20 % ointment
1 applic topical TID
metoprolol tartrate 25 mg tablet
12.5 mg PO BID
Eliquis 5 mg Tablet
5 mg PO BID 30 Days Qty: 60 0RF
gabapentin 100 mg Capsule
100 mg PO HS 30 Days Qty: 30 0RF
clotrimazole [Athlete's Foot (clotrimazole)] 1 % Cream
1 applic topical BID 30 Days Qty: 50 0RF
dexamethasone 2 mg tablet
2 mg PO BID 30 Days Qty: 60 0RF
levetiracetam 1,000 mg Tablet
1,000 mg PO BID 30 Days Qty: 60 0RF
midodrine 5 mg Tablet
10 mg PO TID @ 0800,1200,1700 30 Days Qty: 180 0RF
omeprazole 20 mg capsule,delayed release(DR/EC)
20 mg PO DAILY 30 Days Qty: 30 0RF
finasteride 5 mg Tablet
5 mg PO HS 30 Days Qty: 30 0RF
Changed
insulin glargine [Lantus Solostar U-100 Insulin] 100 unit/mL (3 mL) insulin pen
10 unit SC HS Qty: 0 0RF
Held
rosuvastatin 20 mg tablet
20 mg PO QPM
Hold Instructions: Restart when LFTs improve
Discontinued
insulin aspart U-100 100 unit/mL (3 mL) insulin pen
8 unit SC AC
levetiracetam 500 mg Tablet
1,000 mg PO BID 30 Days Qty: 120 0RF
Discharge Orders:
Discharge Patient (As Directed); Ordered 12/20/24
Ordered By: Rashi Alegre
Discharge Date and Time
Discharge Date/Time: 12/20/24 19:31
Print Language: SINHALA
[2024-12-20 16:37] LABS: Glucose - Point of Care 125 mg/dl (70-99)
--- NOTE | 2024-12-21 15:01 | PN.CDI ---
CDI
- -
CDI:
Physician Documentation Request
Admit Date: 12/16/24 04:07
Dear Doctor,
Please review the following and provide your response in the progress notes.
Current documentation includes a diagnosis of hypotension.
Clinical Indicators:
Pt admitted for hypotension and EMANI.
ER: ' Upon review of limited discharge records from [facility], I am concerned that patient had not been receiving midodrine as well as Decadron. Concern for acute adrenal insufficiency contributing to hypotension.'
H&P: ' Hypotension
- Likely combination of volume losses and lack of midodrine / dexamethasone.'
Glioblastoma
Aphasia
Weakness
- s/p resection of rapidly growing glioblastoma on 10/08/24.
- Persistent aphasia / weakness following surgery.'
Selected Entries
12/15/24
21:17 12/15/24
23:30 12/16/24
00:15
Blood pressure 86/59 75/42 72/48
Please clarify which of the following is the most likely etiology of the above symptoms and treatment rendered:
Neurogenic Orthostatic Hypotension
Orthostatic Hypotension only
Other
Use of terms such as suspected, likely, concern for, or probable (associated with a specific diagnosis that is being evaluated, monitored, or treated as if it exists) are acceptable and can be coded in the inpatient setting, when documented at the
time of discharge.
Thank you,
Maria Story RN, BSN
CDI Specialist
[place] [facility]
Please use your independent medical judgment in providing your response.
== END 2024-12-20 19:31 | DRG 312 ==
LOC: 4 WEST ACU 04:07
PROVIDERS: Student in an Organized Health Care Education/Training Program; ADMITTING PHYSICIAN Hospitalist; ATTENDING PHYSICIAN Internal Medicine; CONSULT PHYSICIAN Internal Medicine Infectious Disease; EMERGENCY PHYSICIAN Emergency Medicine; FAMILY PHYSICIAN Internal Medicine
DX: I95.1 Orthostatic hypotension (principal); N17.9 Acute kidney failure, unspecified; C71.9 Malignant neoplasm of brain, unspecified; Z66 Do not resuscitate; E11.40 Type 2 diabetes mellitus with diabetic neuropathy, unspecified; E11.65 Type 2 diabetes mellitus with hyperglycemia; E11.649 Type 2 diabetes mellitus with hypoglycemia without coma; I48.0 Paroxysmal atrial fibrillation; L89.151 Pressure ulcer of sacral region, stage 1; N18.30 Chronic kidney disease, stage 3 unspecified
CPT/HCPCS: 71045; 80048; 80053; 81003; 81015; 82962; 83036; 83605; 85025; 85027; 87040; 87070; 87086; 87147; 87154; 87186; 87205; 92507; 92523; 92526; 92610; 96361; 96374; 96375; 97163; 97167; 97530; 97535; 99285